=== PATIENT | female | born 1970 | race Caucasian/White ===

== ENCOUNTER 2016-07-01 08:14 | Observation (INO) | payer OTHER ==
[2016-06-24 14:01] VITALS: BMI 42.0
--- NOTE | 2016-06-24 14:49 | PAT Medication Instructions ---
Service Date Jun 24, 2016. Current Home Medication List Cyanocobalamin (Cyanocobalamin), 1,000 MCG IM MONTHLY Ibuprofen (Advil), 400-600 MG PO PRN Valacyclovir (Valtrex), 500 MG PO QAM Medication Instructions For Your Scheduled Surgery - Check with surgeon for instructions: Ibuprofen (Advil), 400-600 MG PO PRN - Continue as usual: Cyanocobalamin (Cyanocobalamin), 1,000 MCG IM MONTHLY - Take the following medications the morning of surgery with a sip of water: Valacyclovir (Valtrex), 500 MG PO QAM If you have any questions please call us at [phone] (Danielle Cheung PA-C ) or [phone] or [phone]
[2016-06-24 16:03] LABS: BASO % 0.3 %; BASO ABS # 0.02 K/uL (0-0.2); COMPLETE YES; EOS % 4.5 %; HEMATOCRIT 39.3 % (37-47); IG% 0.3 %; LYMPH % 24.8 %; LYMPH ABS # 1.42 K/uL (1.2-3.4); MEAN CELL VOLUME 87.5 fL (80-100); MEAN CORPUSCULAR HEMOGLOBIN 27.6 pg (25-34); MEAN CORPUSCULAR HGB CONC 31.6 g/dl (32-36); MEAN PLATELET VOLUME 9.6 fL (7.4-10.4); MONO % 6.5 %; NEUT % 63.6 %; PLATELET COUNT 337 K/uL (130-400); RED BLOOD COUNT 4.49 M/uL (4.2-5.4); WHITE BLOOD COUNT 5.73 K/uL (4.8-10.8)
[2016-06-24 16:26] LABS: CALCIUM 8.8 mg/dl (8.5-10.1); CREATININE 0.65 mg/dl (0.60-1.20); POTASSIUM 4.1 mmol/L (3.5-5.1)
--- NOTE | 2016-06-25 13:51 | HISTORY & PHYSICAL EXAMINATION ---
DATE OF ADMISSION: 07/01/2016 ADMITTING DIAGNOSES: 1. Dysfunctional uterine bleeding. 2. Failed endometrial ablation. ADMISSION HISTORY: The patient is a 45-year-old 1, para 1 who was admitted for total laparoscopic hysterectomy and bilateral salpingectomy for dysfunctional uterine bleeding after failed endometrial ablation. The patient's problems date back to November of 2014 when she presented with a history of irregular menstrual cycles. The patient was noted to have some anemia and was being followed by hematology. The patient underwent an endometrial ablation and was amenorrheic for approximately 9 months. The patient presented in January of this year and stated that her menses had returned. The bleeding was heavy with the passages of clots. She was evaluated in the Emergency Room and given a progesterone taper and referred back to gynecology. Evaluation here in the office included pelvic ultrasound as well as an endometrial biopsy. Treatment options were discussed with the patient and she is admitted for the above listed procedure. PAST MEDICAL HISTORY: OBSTETRICAL: x1. GYNECOLOGIC: As above. MEDICAL: Peripheral neuropathy, lumbar radiculopathy, pernicious anemia, hidradenitis suppurativa, chronic sebaceous cyst formation. SURGICAL: Gastric bypass surgery, tubal ligation. ALLERGIES: KEFLEX. SOCIAL HISTORY: Positive for smoking. FAMILY HISTORY: The patient is adopted. REVIEW OF SYSTEMS: As per HPI. ADMISSION PHYSICAL EXAMINATION: GENERAL: Shows a pleasant obese female in no acute distress. VITAL SIGNS: Blood pressure 130/88, height of 5 feet 7 inches and weight of 270 pounds. HEENT EXAMINATION: Unremarkable. NECK: Supple. LUNGS: Clear. HEART: With a regular rhythm and rate. ABDOMEN: Obese with multiple healing sebaceous cysts, the largest just inferior to the umbilicus, approximately 2 cm away. PELVIC: Shows normal external genitalia. The vaginal vault is pink and rugated. Cervical os is multiparous and closed. Bimanual examination, uterus and adnexa are not palpable secondary to patient habitus. RECTAL: Confirmatory. EXTREMITIES: Exam shows no deep calf tenderness. NEUROLOGIC: Grossly intact. IMPRESSION: A 45-year-old G1, P1 with dysfunctional uterine bleeding, history of anemia, failed endometrial ablation. PLAN: Risks, benefits and alternatives to the surgery have been discussed. While the benefits will be cessation of her menstrual cycles, the risks are bleeding, infection, inadvertent injury to bowel or bladder or failure to be able to complete the procedure laparoscopically. The patient preoperatively was noted to have multiple sebaceous cysts on her abdominal wall. She is being treated as an outpatient with topical clindamycin ointment and a repeat evaluation of these abscesses will be made in the holding area before the surgery. Should the abscesses have resolved, then we will proceed with surgery. The permit has been signed and she wishes to proceed.
[2016-06-26 16:13] LABS: PREG INTERNAL NEGATIVE QC NEG CLEAR BACKGROUND; PREG INTERNAL POSITIVE QC POS CONTROL LINE
[~2016-07-01] VITALS: Ht 172.7 cm; Wt 126.1 kg
[2016-07-01] VITALS (7 sets, daily range): BP systolic 119–153; BP diastolic 73–99; PULSE 75–95; TEMP 36.5–37.1; O2SAT 94–97; Ht 172.7 cm; Wt 126.1 kg
[2016-07-01] MEDS: LACTATED RINGER'S 1000ML 1,000 ML IV SCH ×2 (08:05→09:05)
[~2016-07-01 08:14] MED LIST: CEFAZOLIN 3000 MG/65 ML D5W IV SCH; CYNI1000 IM; IBUP-1050 PO; LACTATED RINGER'S 1000ML 1,000 ML IV SCH; VALA500T60 PO
[2016-07-01] MEDS ORDERED: FENTANYL CITRATE INJ 50 MCG/1 ML 2 ML VIAL ONE ×2 (08:41→12:15)
[2016-07-01] MEDS ORDERED: MIDAZOLAM HCL 1 MG/ML 2ML VIAL ONE (08:41)
[2016-07-01] MEDS ORDERED: GLYCOPYRROLATE INJ 0.2 MG/ML VIAL ONE ×2 (08:43→12:09)
[2016-07-01] MEDS ORDERED: ONDANSETRON INJ 2 MG/ML 2 ML VIAL ONE (08:43)
[2016-07-01] MEDS ORDERED: LIDOCAINE HCL 2% 2 ML VIAL (20MG/ML) ONE (08:43)
[2016-07-01] MEDS ORDERED: DEXAMETHASONE SOD INJ 4 MG/ML VIAL ONE (08:43)
[2016-07-01] MEDS ORDERED: PROPOFOL IV EMULSION 10 MG/ML 20 ML VIAL IV ONE (08:43)
[2016-07-01] MEDS ORDERED: ROCURONIUM BROMIDE 10 MG/ML 5 ML VIAL ONE ×2 (08:43→11:32)
[2016-07-01] MEDS ORDERED: NEOSTIGMINE METHYLSULFATE 5 MG/5 ML SYR ONE (08:43)
[2016-07-01] MEDS ORDERED: PROMETHAZINE HCL INJ 6.25 MG in SODIUM CHLORIDE 0.9% 50ML 50 ML IV PRN (10:15)
[2016-07-01] MEDS ORDERED: ATROPINE SULFATE 0.1 MG/ML 5ML SYR IV PRN (10:15)
[2016-07-01] MEDS ORDERED: ONDANSETRON INJ 2 MG/ML 2 ML VIAL IV PRN ×2 (10:15→12:30)
[2016-07-01] MEDS ORDERED: EpHEDrine SULFATE INJ 50 MG/ML AMP IV PRN (10:15)
--- NOTE | 2016-07-01 10:17 | History & Physical Bridge Note ---
H&P Re-Evaluation Bridge Note: I have examined the patient, reviewed the History & Physical and in the interval since the performance of the History & Physical I have noted the following changes of clinical significance: Patient using topical Clindamycin with significant in size and induration. Believe can proceed with the surgery, discussed with patient. Pt allergy to po Keflex is nausea, will go ahead with IV Keflex.
[2016-07-01] MEDS ORDERED: LACTATED RINGER'S 1000ML 1,000 ML IV SCH (12:26)
[2016-07-01] MEDS ORDERED: OXYCODONE/ACETAMINOPHEN 5-325 TAB PO PRN ×2 (12:30)
[2016-07-01] MEDS ORDERED: MEPERIDINE HCL 75 MG/ML CARP IV PRN (12:30)
[2016-07-01] MEDS ORDERED: KETOROLAC TROMETHAMINE 30 MG/ML VIAL IV. PRN (12:30)
[2016-07-01] MEDS ORDERED: ACETAMINOPHEN 325 MG TAB PO PRN (12:30)
[2016-07-01] MEDS ORDERED: MEPERIDINE HCL 50 MG/ML CARP IV PRN (12:30)
[2016-07-01] MEDS ORDERED: IBUPROFEN 600 MG TAB PO PRN (12:30)
[2016-07-01] MEDS ORDERED: BUPIVACAINE 0.5 % 5 MG/1 ML MPF 30ML VIAL INJ ONE (12:37)
--- NOTE | 2016-07-01 12:38 | [facility] Post Operative Brief Note ---
Immediate Operative Summary Operative Date Jul 01, 2016. Pre-Operative Diagnosis 1) Dysfunctional uterine bleeding; 2) failed endometrial ablation Post-Operative Diagnosis Same as preop Procedure(s) Performed Robotic-assisted total laparoscopic hysterectomy, bilateral salpingectomy, cystoscopy Surgeon Dr. Abad Spinal Surgeon Surgeon(s) Dr. Kenney Estimated Blood Loss 50cc Findings Multiparous uterus, previous tubal ligation, normal appearing ovaries bilaterally,TLH with bilateral salpingectomy performed, post procedure cystoscopy showed bilateral ureteral jets consistent with ureteral patency Fluids (cc crystalloids) 1000 Specimens A: uterus, cervix, bilateral fallopian tubes Drains Reed to gravity Anesthesia General Complication(s) None Disposition Recovery Room / PACU
[2016-07-01] MEDS: FENTANYL CITRATE INJ 50 MCG/1 ML 2 ML VIAL IV PRN ×2 (12:46→12:53)
[2016-07-01] MEDS: HYDROmorphone INJ 1 MG/ML SYR IV PRN ×4 (13:05→13:32)
[2016-07-01] MEDS ORDERED: IV FLUIDS COMPLETED PRN (13:45)
--- NOTE | 2016-07-01 13:48 | Anesthesiology Progress Note ---
Anesthesia Post Op Note Date & Time Jul 01, 2016 at 13:48 Vital Signs Pain Intensity: 8 Vital Signs Past 12 Hours Date Time Temp Pulse Resp B/P Pulse Ox O2 Delivery O2 Flow Rate FiO2 07/01/16 13:35 78 13 145/81 98 Nasal Cannula 3 07/01/16 13:25 76 15 158/88 99 Nasal Cannula 3 07/01/16 13:15 72 15 169/97 99 Nasal Cannula 3 07/01/16 13:05 80 18 181/107 98 Nasal Cannula 3 07/01/16 12:55 88 20 182/96 100 Mask 10 07/01/16 12:45 92 24 165/97 100 Mask 10 07/01/16 12:38 36.5 98 16 159/108 100 Mask 10 07/01/16 09:00 36.8 92 20 153/99 96 Room Air Notes Mental Status: alert / awake / arousable, participated in evaluation Pt Amnestic to Procedure: Yes Nausea / Vomiting: adequately controlled Pain: adequately controlled Airway Patency, RR, SpO2: stable & adequate BP & HR: stable & adequate Hydration State: stable & adequate Anesthetic Complications: no major complications apparent
--- NOTE | 2016-07-01 14:14 | OPERATIVE REPORT ---
DATE OF OPERATION: 07/01/2016 PREOPERATIVE DIAGNOSES: 1. Dysfunctional uterine bleeding. 2. Failed endometrial ablation. POSTOPERATIVE DIAGNOSES: Same. PROCEDURES PERFORMED: 1. Total laparoscopic hysterectomy, da Peyton assisted. 2. Bilateral salpingectomy. SURGEON: Dr. Abad. HAZARDOUS SUBSTANCES SCIENTIST: Dr. Courtney Kenney. ANESTHESIA: General. FINDINGS: Laparoscopic examination of the pelvis showed normal appearing uterus and ovaries, fallopian tubes with evidence of previous bilateral tubal ligation. Total laparoscopic hysterectomy and bilateral salpingectomy performed. Post-procedure cystoscopy showed bilateral ureteral jets consistent with ureteral patency. PROCEDURE IN DETAIL: The patient was taken to the operating room and after general anesthesia, was prepped and draped in a dorsal lithotomy position for a laparoscopic hysterectomy. Reed catheter was inserted into the bladder, which remained there throughout the procedure. A single tooth tenaculum was used to grasp the anterior lip of the cervix. The cervical os was dilated with Henao dilators to a Henao #23 and then the VCare uterine manipulator was inserted into the uterine cavity and insufflated with air. The VCare was then stitched to the cervix at the 12 and 3 o'clock position and locked into place. Small subumbilical incision was made. Veress needle was introduced into the pelvic cavity, which was then insufflated with 3 liters of CO2. Veress needle was removed and then a supraumbilical sharp trocar was placed under direct laparoscopic guidance. Pelvic organs were visualized and then robotic laparoscopic ports were placed. Two 8-mm ports were placed on the right hand side, 1 laterally and 1 para medially. On the left hand side, there was an 8-mm port laterally with a 12-mm paramedial assistance port. The robot was brought to the table and docked. The following instruments were inserted; through arm #1, monopolar scissors; arm #2, Bipolar cautery instrument; and arm #2, the Prograf. Surgeon left the operating table to the operative console. The ureters were identified bilaterally. The left fallopian tube was cauterized along the mesosalpinx and excised and removed from the field. In a similar fashion, the right fallopian tube was cauterized along the mesosalpinx, freeing this and removing it from the field. The left round ligament was cauterized and cut, ligated, opening the anterior leaf of the broad ligament. The ovarian suspensory ligament was then cauterized and cut. Anterior leaf of the broad ligament was taken down over the level of the cervix. Using sharp dissection, the peritoneum was dissected away, exposing the vaginal mucosa being tented by the VCare uterine manipulator. The uterine vessels were skeletonized and then cauterized in 3 contiguous sutton with bipolar cautery instrument. Dissection was turned to the right hand side. Fallopian tube was isolated. After removal of the right round ligament, it was then cauterized, cut, opening the anterior leaf of the broad ligament, which was taken down to join the contralateral side. The right ovarian suspensory ligament was cauterized and cut exposing the uterine vessels after the bladder was felt to be adequately dissected down below the level of the VCare. The uterine vessels on the right hand side were cauterized in 3 contiguous sutton, cut. The cardinal and uterosacral ligaments were then clamped, cauterized and cut. Dissection turned back to the left. Uterine vessels were cut. Cardinal and uterosacral ligament was cauterized and cut, and the VCare could be seen tenting the vaginal mucosa. Posterior colpotomy incision was made with the monopolar scissors and carried in a circumferential fashion around the VCare the cervix from the vagina. The specimen was delivered into the vagina and a vaginal packing was placed to reestablish the pneumoperitoneum. Monopolar scissors and bipolar cautery instruments were removed through arm #1 where the boris needle winch driver and through arm #2, where the cobra grasp. A 2-0 Vicryl V-Loc suture was inserted and the vaginal cuff was then closed with a running locking stitch of the 2-0 Vicryl VCare. This was then doubled backed and cut and the needle was removed from the field. The vaginal packing was removed and the pneumoperitoneum was continued signifying closure of the vaginal cuff. The pedicles were irrigated with warm saline and aspirated. All pedicles were inspected for hemostasis, which was present. At this point, the Reed catheter was removed. The patient had received methylene blue from the anesthesia unit. Cystoscopy of the bladder was performed by Dr. Courtney Kenney. Both ureteral orifices were visualized with ureteral jets seen consistent with ureteral patency. The cystoscope was removed and a new Reed catheter was placed. The robot was undocked and removed from the field. The CO2 was allowed to escape the pelvic cavity and the trocars were removed. Deep sutures through the 12-mm ports were placed, reapproximating the fascia with 0 Vicryl suture. The skin incisions were closed with 4-0 Monocryl subcuticular stitches. Steri-Strips were applied. The patient was taken out of dorsal lithotomy and to recovery room in satisfactory condition. I attest to the content of the Intraoperative Record and any orders documented therein. Any exceptio ns are noted below.
[2016-07-01] MEDS ORDERED: MTR600X PO (18:14)
[2016-07-01] MEDS ORDERED: OXYC-57 PO (18:14)
--- NOTE | 2016-07-01 18:16 | Discharge Instructions ---
Discharge Instructions Admission Reason for Admission: Dysfunctional Uterine Bleeding Discharge Discharge Diagnosis / Problem: same Discharge Goals Goal(s): Routine recovery after surgery Activity Recommendations Activity Limitations: as noted below . Instructions / Follow-Up Instructions / Follow-Up POST OPERATIVE: BOWEL FUNCTION/MEDICATIONS: 1. Constipation pain and discomfort are the most common complaints 5-7 days after surgery. Points 2-6 address the things that can help. 2. Chewing gum can help stimulate the gut and help improve digestion and motility. 3. Milk of Magnesia 1-2 times per day until return of bowel function. 4. Colace is a stool softener that helps. Taking this 2-3 times per day until bowel function returns to normal is highly recommended. 5. Dulcolax is a laxative that may be used if several days have passed without a bowel movement. Alternatively Miralax may be used daily instead. 6. Drink plenty of fluids as this will also reduce constipation. 7. Narcotic pain medications will be prescribed by your physician. They are safe to use and we encourage you to use them. If you are not allergic, ibuprofen will also be prescribed. Many patients will be able to transition off of the narcotic medications to ibuprofen by postoperative day 3. ACTIVITY RECOMMENDATIONS: 1. Get plenty of rest and listen to your body. If you are tired, take a nap. 2. You may shower, but do not take a tub bath until you see your doctor at the 2 week post operative visit. 3. Absolutely NO intercourse and nothing in the vagina until you are examined by your doctor at the 6 week visit. At that visit it will be determined when such activities can be resumed. This can range from 6-12 weeks after your surgery depending on healing time. 4. The main physical activity in the first week should be walking. By the second week you can slowly increase activity. There are no limits on walking up and down stairs. 5. Do not lift more than 5-10 lbs for 4 weeks. Remember the "one-handed rule", i.e. if you can lift something with only one hand it's likely okay. 6. Minimize power shear operator like vacuuming and exercising for 4 weeks. "Overdoing it" can lead to incisions not healing, pain and vaginal bleeding , so again, listen to your body. 7. Driving can be resumed when you feel able. Do not drive within 24 hours of taking a narcotic medication. EXPECTATIONS: 1. Vaginal spotting, bleeding and discharge are common after surgery. There may even be an odor to the discharge which is often related to sutures used in the vagina. If you experience heavy vaginal bleeding, call the office number day or night [phone]. 2. Bladder discomfort is common after surgery from the catheter. This usually resolves in 1-2 weeks. 3. By the end of the 3rd or 4th week you should be feeling much better. It may take up to 6 weeks for your energy levels to return to normal. 4. Narcotic medications have side effects such as: dizziness, headache, nausea and/or vomiting. If you suspect your pain medication is causing problems, call our office and we may be able to prescribe an alternate medication. 5. The skin incisions are often covered with a liquid bandage. This will gradually peel off over time. CALL THE OFFICE IF YOU HAVE ANY OF THE FOLLOWIN. Temperature of 101 degrees or higher. 2. Severe abdominal or pelvic pain not relieved by pain medication. 3. Persistent nausea or vomiting. 4. Increased pain with urination or difficulty urinating. 5. Bright red bleeding that soaks more than 1 pad per hour. CONTACT PHONE NUMBERS: Main Office: [phone] Surgical Nurse: [phone] extension [phone] FOLLOW-UP: Post-Operative Appointments: * Individual instructions will have been given about the timing of your first examination, but this is usually at the end of the second week home. * You will need to call the office at soon after discharge to make the appointment for your post-op check-up if it has not already been scheduled. * Additional information regarding activity, sexual intercourse and when to return to work will be given at this appointment. WE WISH YOU A SPEEDY RECOVERY! Current Hospital Diet Patient's current hospital diet: Regular Diet Discharge Diet Recommended Diet: Regular Diet Procedures Procedures Performed: Robotic-assisted total laparoscopic hysterectomy, bilateral salpingectomy, cystoscopy Pending Studies Studies pending at discharge: yes List of pending studies: Pathology report for hysterectomy Medical Emergencies . Who to Call and When: Medical Emergencies: If at any time you feel your situation is an emergency, please call 911 immediately. . Non-Emergent Contact Non-Emergency issues call your: Card Puncher Call Non-Emergent contact if: temperature is above 100.5, your pain is not controlled, wound has increased drainage, wound has increased redness, wound has increased pain . . "Provider Documentation" section prepared by Massimo Abad. VTE Core Measure Inpt VTE Proph given/why not?: Nazario Treadwell, SCD's
--- NOTE | 2016-07-01 18:19 | OB/GYN Progress Note ---
MUSIC PASTOR Progress Note Date of Service Jul 01, 2016. Subjective conversation w/ patient, physical exam Ambulation: ambulating normally Voiding: no voiding problems Diet Tolerance: Regular Diet Objective Vital Signs Date Time Temp Pulse Resp B/P Pulse Ox O2 Delivery O2 Flow Rate FiO2 07/01/16 15:10 95 18 147/93 96 Room Air 07/01/16 14:40 90 20 140/87 96 Room Air 07/01/16 14:00 69 14 138/80 98 Nasal Cannula 2 07/01/16 13:45 36.7 75 15 150/91 99 Nasal Cannula 2 07/01/16 13:35 78 13 145/81 98 Nasal Cannula 3 07/01/16 13:25 76 15 158/88 99 Nasal Cannula 3 07/01/16 13:15 72 15 169/97 99 Nasal Cannula 3 07/01/16 13:05 80 18 181/107 98 Nasal Cannula 3 07/01/16 12:55 88 20 182/96 100 Mask 10 07/01/16 12:45 92 24 165/97 100 Mask 10 07/01/16 12:38 36.5 98 16 159/108 100 Mask 10 07/01/16 09:00 36.8 92 20 153/99 96 Room Air Physical Exam General Appearance: WELL-APPEARING, NO APPARENT DISTRESS Incision Description: Clean, Dry & Intact Extremities: no calf tenderness Assessment and Plan Post-Op (1) Menorrhagia Status: Acute Assessment & Plan: - discussed surgery and findings with patient - pt ambulating, taking po well and voiding - d/c instructions given - f/u in 2 weeks for post-op check (2) Abnormal vaginal bleeding Status: Acute
--- NOTE | 2016-07-02 01:59 | DISCHARGE SUMMARY ---
ADMITTING DIAGNOSES: 1. Dysfunctional uterine bleeding. 2. Failed endometrial ablation. DISCHARGE DIAGNOSES: Same. PROCEDURES PERFORMED: 1. Total laparoscopic hysterectomy, da Peyton assisted. 2. Bilateral salpingectomy. DISCHARGE MEDICATIONS: 1. Percocet 5/325 one to two p.o. q. 4-6 hours p.r.n. pain. 2. Motrin 600 mg p.o. q. 6 hours p.r.n. pain. ADMISSION HISTORY: The patient is a 45-year-old 1, para 1 admitted for total laparoscopic hysterectomy and bilateral salpingectomy for dysfunctional uterine bleeding and for failed endometrial ablation. The patient's problems date back to November 2014 when she presented with a history of an irregular menstrual cycle. The patient was noted to have some anemia and was being followed by hematology. The patient underwent an endometrial ablation and was amenorrheic for approximately 9 months. The patient presented in January 2016 and stated that her menses had returned. The bleeding was heavy with the passage of clots. She was evaluated in the Emergency Room and given a progesterone taper and referred back to gynecology. Evaluation in the office included pelvic ultrasound as well as endometrial biopsy. Treatment options were discussed with the patient. She is admitted for the above listed procedures. ADMISSION PHYSICAL EXAMINATION: GENERAL: Showed a pleasant obese female in no acute distress. VITAL SIGNS: Blood pressure 130/88, height of 5 feet 7 inches, weight of 277 pounds. HEENT: Unremarkable. NECK: Supple. LUNGS: Clear. HEART: With a regular rhythm and rate. ABDOMEN: Obese with multiple healing sebaceous cysts. PELVIC: Normal external genitalia. Vaginal wall pink and rugated. Cervical os multiparous and closed. Bimanual examination, uterus and adnexa are not palpable secondary to patient habitus. RECTAL: Confirmatory. EXTREMITIES: Showed no deep calf tenderness. NEUROLOGIC: Grossly intact. ADMISSION LABORATORY VALUES: Showed an H\T\H of 12.4 and 39.3. HOSPITAL COURSE: On the day of admission, patient was taken to the operating room where she underwent the total laparoscopic hysterectomy with bilateral salpingectomy. Operative findings showed a large multiparous uterus with normal appearing tubes and ovaries bilaterally, evidence of previous tubal ligation noted. Total laparoscopic hysterectomy with bilateral salpingectomy performed. Postoperatively, the patient did well. The patient was able to ambulate without difficulty, tolerated a regular diet as well as p.o. medication and voided. She was discharged home with the routine discharge instructions and prescriptions for the medications as listed above. She will follow up in the office in 2 weeks' time for a postoperative check but as always, she has been instructed to call with any questions, problems or difficulties.
== END 2016-07-01 20:15 | disposition home or self-care (01) ==
LOC: ENRESERVDT → ENRESERVTM → C.ACU 08:14 → C.MS4N 12:30
PROVIDERS: ADMIT Obstetrics & Gynecology; ATTEND Obstetrics & Gynecology
DX: N92.0 Excessive and frequent menstruation with regular cycle (principal); E66.9 Obesity, unspecified; G62.9 Polyneuropathy, unspecified; F17.200 Nicotine dependence, unspecified, uncomplicated; Z88.1 Allergy status to other antibiotic agents; Z98.84 Bariatric surgery status
CPT/HCPCS: 58571; S2900

== ENCOUNTER 2016-08-24 23:50 | Emergency (ER) | payer OTHER ==
[~2016-08-24] VITALS: Ht 172.7 cm; Wt 121.3 kg
[~2016-08-24 23:50] MED LIST changes: -CEFAZOLIN 3000 MG/65 ML D5W IV SCH; -IBUP-1050 PO; -LACTATED RINGER'S 1000ML 1,000 ML IV SCH; +MTR600X PO; +OXYC-57 PO
[2016-08-24 23:52] VITALS: BP 157/94; PULSE 114; TEMP 36.4; O2SAT 95; Ht 172.7 cm; Wt 121.3 kg
[2016-08-25] MEDS ORDERED: AMOXICILLIN 250 MG CAP PO STA (00:08)
[2016-08-25] MEDS ORDERED: OXYC1TAB3 PO (00:11)
[2016-08-25] MEDS ORDERED: AMOX500C3 PO (00:11)
[2016-08-25] MEDS ORDERED: OXYCODONE IR HOME PACK PO ONE (00:15)
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
== END 2016-08-25 00:23 | disposition home or self-care (01) ==
LOC: C.EDB 23:51
DX: K02.9 Dental caries, unspecified (principal); J45.909 Unspecified asthma, uncomplicated; F17.200 Nicotine dependence, unspecified, uncomplicated; Z91.81 History of falling; Z98.51 Tubal ligation status; Z90.710 Acquired absence of both cervix and uterus; Z98.890 Other specified postprocedural states

== ENCOUNTER → 2017-02-06 | Outpatient (CLI) | payer OTHER ==
[~2017-02-06] MED LIST changes: +OXYC1TAB3 PO
--- NOTE | 2017-02-06 15:58 | DIAGNOSTIC IMAGING REPORT ---
C-SPINE ROUTINE 4 OR 5 VIEWS CLINICAL HISTORY: Neck pain and. COMPARISON STUDY: No previous studies for comparison. FINDINGS: There is straightening of the normal cervical lordosis. No fracture or suspicious lesion is present. There is moderate osteophytosis with mild disc space narrowing at C5-C6. There is mild multilevel facet arthrosis. IMPRESSION: 1. Moderate degenerative disc disease at C5-C6. 2. No cervical spine fracture or subluxation. Electronically signed by: Bobby Mata M.D. 02/06/2017 3:57 PM Dictated Date/Time: 02/06/2017 3:56 PM
== END | disposition home or self-care (01) ==
LOC: C.RADPV 15:18
PROVIDERS: ATTEND Nurse Practitioner Family
DX: M54.2 Cervicalgia (principal)

== ENCOUNTER → 2017-02-08 | Outpatient (CLI) | payer OTHER ==
[2017-02-08 12:59] LABS: BASO % 0.3 %; BASO ABS # 0.02 K/uL (0-0.2); COMPLETE YES; EOS % 3.8 %; IG% 0.5 %; LYMPH % 23.1 %; LYMPH ABS # 1.51 K/uL (1.2-3.4); MEAN CELL VOLUME 84.2 fL (80-100); MEAN CORPUSCULAR HEMOGLOBIN 26.1 pg (25-34); MEAN PLATELET VOLUME 9.6 fL (7.4-10.4); MONO % 10.2 %; NEUT % 62.1 %; PLATELET COUNT 350 K/uL (130-400); RED BLOOD COUNT 4.63 M/uL (4.2-5.4); WHITE BLOOD COUNT 6.54 K/uL (4.8-10.8)
[2017-02-08 13:27] LABS: ALT/SGPT 17 U/L (12-78); BLOOD UREA NITROGEN 6 mg/dl (7-18); BUN/CREATININE RATIO 7.1 (10-20); CALCIUM 8.6 mg/dl (8.5-10.1); CARBON DIOXIDE 26 mmol/L (21-32); CHLORIDE 109 mmol/L (98-107); CHOLESTEROL 196 mg/dl (0-200); CREATININE 0.77 mg/dl (0.60-1.20); GLUCOSE 86 mg/dl (70-99); POTASSIUM 3.4 mmol/L (3.5-5.1); SODIUM 141 mmol/L (136-145); TRIGLYCERIDES 131 mg/dl (0-150); VERY LOW DENSITY LIPOPROT CALC 26 mg/dl
[2017-02-08 13:38] LABS: ALKALINE PHOSPHATASE 108 U/L (45-117); AST/SGOT 13 U/L (15-37); CHOLESTEROL/HDL RATIO 4.9; HDL CHOLESTEROL 40 mg/dl; LDL CHOLESTEROL CALCULATED 130 mg/dl
== END | disposition home or self-care (01) ==
LOC: C.LABPVFM 11:01
PROVIDERS: ATTEND Nurse Practitioner Family
DX: Z00.00 Encounter for general adult medical examination without abnormal findings (principal); D51.0 Vitamin B12 deficiency anemia due to intrinsic factor deficiency; D64.9 Anemia, unspecified; E66.9 Obesity, unspecified

== ENCOUNTER 2017-04-09 18:40 | Emergency (ER) | payer OTHER ==
[~2017-04-09] VITALS: Ht 172.7 cm; Wt 116.3 kg
[~2017-04-09 18:40] MED LIST changes: -CYNI1000 IM; -OXYC1TAB3 PO
[2017-04-09 18:41] VITALS: TEMP 37.3; Ht 172.7 cm; Wt 116.3 kg
[2017-04-09] MEDS ORDERED: LIDOCAINE/EPINEPHRINE 1% 20 ML VIAL ONE (18:55)
[2017-04-09] MEDS ORDERED: ACET1TAB84 PO (18:56)
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
[2017-04-09] MEDS ORDERED: SULF800T23 PO (19:37)
[2017-04-09] MEDS ORDERED: NORCO 5/325MG HOME PACK PO ONE (19:45)
[2017-04-09 19:57] VITALS: BP 168/89; PULSE 82; O2SAT 98
[2017-04-09] MEDS ORDERED: CYNI1000 IM (21:28)
== END 2017-04-09 19:58 | disposition home or self-care (01) ==
LOC: C.EDB 18:42 → C.EDA 19:58
DX: L02.211 Cutaneous abscess of abdominal wall (principal); F17.200 Nicotine dependence, unspecified, uncomplicated; B00.9 Herpesviral infection, unspecified

== ENCOUNTER 2017-07-25 09:31 | Emergency (ER) | payer OTHER ==
[~2017-07-25] VITALS: Ht 172.7 cm; Wt 108.1 kg
[~2017-07-25 09:31] MED LIST changes: +ACET1TAB84 PO; +CYNI1000 IM; -MTR600X PO; -OXYC-57 PO
[2017-07-25 09:36] VITALS: TEMP 36.6; Ht 172.7 cm; Wt 108.1 kg
[2017-07-25] MEDS ORDERED: LIDOCAINE/EPINEPHRINE 1% 20 ML VIAL INFIL ONE (10:45)
[2017-07-25] MEDS ORDERED: HYDROmorphone INJ 1 MG/ML SYR IM ONE (10:45)
[2017-07-25] MEDS ORDERED: IBUP-1451 PO (12:23)
[2017-07-25] MEDS ORDERED: CLIN150C PO (12:24)
[2017-07-25 12:37] VITALS: BP 157/105; PULSE 85; O2SAT 99
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
== END 2017-07-25 12:43 | disposition home or self-care (01) ==
LOC: C.EDB 09:34 → C.EDC 12:43
DX: L02.31 Cutaneous abscess of buttock (principal); L73.2 Hidradenitis suppurativa; Z87.898 Personal history of other specified conditions; F32.9 Major depressive disorder, single episode, unspecified; F41.9 Anxiety disorder, unspecified; J45.909 Unspecified asthma, uncomplicated; Z79.899 Other long term (current) drug therapy; Z87.09 Personal history of other diseases of the respiratory system; Z87.828 Personal history of other (healed) physical injury and trauma; F17.200 Nicotine dependence, unspecified, uncomplicated

== ENCOUNTER 2017-08-09 18:58 | Emergency (ER) | payer OTHER ==
[~2017-08-09 18:58] MED LIST changes: -CYNI1000 IM; -VALA500T60 PO
[2017-08-09 19:03] VITALS: TEMP 37.1
[2017-08-09] MEDS ORDERED: LORAZEPAM 2 MG/ML 1 ML VIAL IV STA (19:24)
[2017-08-09] MEDS ORDERED: SODIUM CHLORIDE 0.9% 1000ML 1,000 ML IV STA (19:24)
[2017-08-09 20:24] LABS: BASO % 0.3 %; BASO ABS # 0.02 K/uL (0-0.2); EOS % 1.4 %; HEMATOCRIT 39.3 % (37-47); HEMOGLOBIN 12.1 g/dL (12.0-16.0); IG# 0.01 K/uL (0.00-0.02); LYMPH % 19.2 %; LYMPH ABS # 1.37 K/uL (1.2-3.4); MEAN CELL VOLUME 81.9 fL (80-100); MEAN CORPUSCULAR HEMOGLOBIN 25.2 pg (25-34); MEAN CORPUSCULAR HGB CONC 30.8 g/dl (32-36); MONO % 8.1 %; MONO ABS # 0.58 K/uL (0.11-0.59); NEUT % 70.9 %; NEUT ABS # 5.05 K/uL (1.4-6.5); PLATELET COUNT 349 K/uL (130-400); RED CELL DISTRIBUTION WIDTH CV 16.3 % (11.5-14.5); WHITE BLOOD COUNT 7.13 K/uL (4.8-10.8)
[2017-08-09 20:41] LABS: BLOOD UREA NITROGEN 8 mg/dl (7-18); CALCIUM 8.8 mg/dl (8.5-10.1); CARBON DIOXIDE 27 mmol/L (21-32); CREATININE 0.81 mg/dl (0.60-1.20); GLUCOSE 87 mg/dl (70-99); POTASSIUM 4.1 mmol/L (3.5-5.1); SODIUM 140 mmol/L (136-145)
[2017-08-09] MEDS ORDERED: CYNI1000 IM (21:28)
[2017-08-09 23:00] VITALS: BP 139/74; PULSE 82; O2SAT 100
--- NOTE | 2017-08-09 23:12 | DIAGNOSTIC IMAGING REPORT ---
CHEST 2 VIEWS ROUTINE CLINICAL HISTORY: sob eval for pneumonia SHORTNESS OF BREATH. ANXIETY. COMPARISON STUDY: 08/26/2014 FINDINGS: The cardiac and mediastinal contours are normal. There is no evidence of focal pulmonary consolidation. There is no evidence of failure. No pleural effusions are visualized.[ There is stable blunting of the left lateral costophrenic angle IMPRESSION: No active disease in the chest. Electronically signed by: Christopher Goldstein M.D. 08/09/2017 11:11 PM Dictated Date/Time: 08/09/2017 10:01 PM
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
== END 2017-08-09 23:24 | disposition home or self-care (01) ==
LOC: C.EDB 18:59
DX: R07.9 Chest pain, unspecified (principal); F41.9 Anxiety disorder, unspecified; F45.8 Other somatoform disorders; J45.909 Unspecified asthma, uncomplicated; E78.2 Mixed hyperlipidemia

== ENCOUNTER → 2017-08-13 | Outpatient (CLI) | payer OTHER ==
[~2017-08-13] MED LIST changes: +CYNI1000 IM
== END | disposition home or self-care (01) ==
LOC: C.LAB1850 16:07
PROVIDERS: ATTEND Nurse Practitioner Family
DX: E55.9 Vitamin D deficiency, unspecified (principal)

== ENCOUNTER → 2017-09-19 | Outpatient (CLI) | payer OTHER ==
[~2017-09-19] MED LIST changes: +CALC-342 PO; +POTA1CAP2 PO
--- NOTE | 2017-09-19 16:15 | DIAGNOSTIC IMAGING REPORT ---
L SHOULDER MIN 2 VIEWS ROUTINE CLINICAL HISTORY: Left shoulder strain COMPARISON: None. DISCUSSION: No acute fractures are visualized. There is minimal inferior displacement humerus with respect to the glenoid. This could indicate ligamentous laxity, or an effusion.. IMPRESSION: 1. No acute fractures 2. Mild inferior displacement of the humerus with respect to the glenoid. This could indicate ligamentous laxity, or a joint effusion. Electronically signed by: Christopher Goldstein M.D. 09/19/2017 4:14 PM Dictated Date/Time: 09/19/2017 4:11 PM
== END | disposition home or self-care (01) ==
LOC: C.LABPVFM 15:51
PROVIDERS: ATTEND Family Medicine
DX: S46.912A Strain of unspecified muscle, fascia and tendon at shoulder and upper arm level, left arm, initial encounter (principal); X58.XXXA Exposure to other specified factors, initial encounter

== ENCOUNTER 2017-09-22 14:39 | Emergency (ER) | payer OTHER ==
[~2017-09-22] VITALS: Ht 172.7 cm; Wt 103.8 kg
[2017-09-22 14:53] VITALS: TEMP 36.5; Ht 172.7 cm; Wt 103.8 kg
[2017-09-22 15:14] LABS: BASO % 0.3 %; BASO ABS # 0.02 K/uL (0-0.2); EOS % 2.2 %; EOS ABS # 0.15 K/uL (0-0.5); HEMATOCRIT 39.8 % (37-47); HEMOGLOBIN 12.1 g/dL (12.0-16.0); IG# 0.02 K/uL (0.00-0.02); LYMPH % 29.4 %; MEAN CELL VOLUME 81.4 fL (80-100); MEAN CORPUSCULAR HEMOGLOBIN 24.7 pg (25-34); MEAN CORPUSCULAR HGB CONC 30.4 g/dl (32-36); MEAN PLATELET VOLUME 9.5 fL (7.4-10.4); MONO % 5.9 %; NEUT % 61.9 %; NEUT ABS # 4.22 K/uL (1.4-6.5); PLATELET COUNT 411 K/uL (130-400); RED CELL DISTRIBUTION WIDTH CV 16.5 % (11.5-14.5); RED CELL DISTRIBUTION WIDTH SD 49.4 fL (36.4-46.3); WHITE BLOOD COUNT 6.81 K/uL (4.8-10.8)
[2017-09-22 15:31] LABS: ALBUMIN 3.9 gm/dl (3.4-5.0); CALCIUM 8.9 mg/dl (8.5-10.1); CREATININE 0.86 mg/dl (0.60-1.20); POTASSIUM 3.2 mmol/L (3.5-5.1)
[2017-09-22 15:33] LABS: TOTAL PROTEIN 6.8 gm/dl (6.4-8.2)
[2017-09-22] MEDS ORDERED: POTA1CAP2 PO (18:13)
[2017-09-22] MEDS ORDERED: CALC-342 PO (18:22)
[2017-09-22 18:33] VITALS: BP 129/88; PULSE 71; O2SAT 100
[2017-09-22] MEDS ORDERED: ACET1TAB84 PO (18:56)
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
[2017-09-22] MEDS ORDERED: CYNI1000 IM (21:28)
== END 2017-09-22 18:34 | disposition home or self-care (01) ==
LOC: C.EDB 14:41 → C.EDC 18:34
DX: R20.0 Anesthesia of skin (principal); E87.6 Hypokalemia; T38.0X5A Adverse effect of glucocorticoids and synthetic analogues, initial encounter; Z98.84 Bariatric surgery status; D64.9 Anemia, unspecified; F41.9 Anxiety disorder, unspecified; J45.909 Unspecified asthma, uncomplicated; F32.9 Major depressive disorder, single episode, unspecified; F43.10 Post-traumatic stress disorder, unspecified; Z87.440 Personal history of urinary (tract) infections; Z98.51 Tubal ligation status; F17.210 Nicotine dependence, cigarettes, uncomplicated; Z79.899 Other long term (current) drug therapy; Z88.1 Allergy status to other antibiotic agents; Z91.048 Other nonmedicinal substance allergy status

== ENCOUNTER 2017-09-27 17:09 | Emergency (ER) | payer OTHER ==
[~2017-09-27] VITALS: Ht 172.7 cm; Wt 104.2 kg
[2017-09-27 17:12] VITALS: BP 150/107; PULSE 137; TEMP 36.6; O2SAT 97; Ht 172.7 cm; Wt 104.2 kg
--- NOTE | 2017-09-27 18:52 | DIAGNOSTIC IMAGING REPORT ---
HEAD CT NONCONTRAST CT DOSE: 1091.55 mGy.cm HISTORY: Head injury. Neck pain. TECHNIQUE: Multiaxial CT images of the head were performed without the use of intravenous contrast. Automated exposure control was utilized for this study. A dose lowering technique was utilized adhering to the principles of ALARA. Comparison: Head CT 02/18/2016. Findings: The paranasal sinuses and mastoid air cells are clear. The calvarium and skull base are intact. The ventricles and sulci are within normal limits. There is no mass, hematoma, midline shift, or acute infarct. Impression: No acute intracranial abnormality. Electronically signed by: Yoni Ortiz M.D. 09/27/2017 6:51 PM Dictated Date/Time: 09/27/2017 6:48 PM
--- NOTE | 2017-09-27 18:55 | DIAGNOSTIC IMAGING REPORT ---
CERVICAL SPINE CT CT DOSE: HISTORY: CHI/neck pain TECHNIQUE: Multiaxial CT images of the cervical spine were performed and reformatted in the sagittal and coronal plane without the use of contrast. A dose lowering technique was utilized adhering to the principles of ALARA. COMPARISON: None. FINDINGS: No fractures. No subluxation. Prevertebral soft tissues and the C1-C2 interval are intact. No pneumothorax. Moderate to space narrowing at C5-C6 and C6-C7. Straightening of the cervical spine. IMPRESSION: No fractures within the cervical spine. Electronically signed by: Yoni Ortiz M.D. 09/27/2017 6:53 PM Dictated Date/Time: 09/27/2017 6:51 PM
--- NOTE | 2017-09-27 19:36 | DIAGNOSTIC IMAGING REPORT ---
LUMBAR SPINE 5 VIEWS HISTORY: Back pain COMPARISON: Lumbar spine 09/18/2013. FINDINGS: There is no fracture. No subluxation. Cholecystectomy. Suture material within the left upper quadrant. Disc spaces are preserved. IMPRESSION: No fracture or subluxation within the lumbar spine. Electronically signed by: Yoni Ortiz M.D. 09/27/2017 7:35 PM Dictated Date/Time: 09/27/2017 7:34 PM
--- NOTE | 2017-09-27 19:37 | DIAGNOSTIC IMAGING REPORT ---
THORACIC SPINE 3 VIEWS HISTORY: Back pain COMPARISON: None. FINDINGS: There is no fracture. No subluxation. Disc spaces are preserved. IMPRESSION: No fracture or subluxation within the thoracic spine. Electronically signed by: Yoni Ortiz M.D. 09/27/2017 7:36 PM Dictated Date/Time: 09/27/2017 7:35 PM
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
== END 2017-09-27 20:19 | disposition home or self-care (01) ==
LOC: C.EDB 17:10 → C.EDD 20:19
DX: S06.0X0A Concussion without loss of consciousness, initial encounter (principal); S16.1XXA Strain of muscle, fascia and tendon at neck level, initial encounter; M54.6 Pain in thoracic spine; Y04.8XXA Assault by other bodily force, initial encounter; W18.2XXA Fall in (into) shower or empty bathtub, initial encounter; R03.0 Elevated blood-pressure reading, without diagnosis of hypertension; J45.909 Unspecified asthma, uncomplicated; F17.200 Nicotine dependence, unspecified, uncomplicated; Z86.59 Personal history of other mental and behavioral disorders

== ENCOUNTER 2017-10-05 10:49 | Emergency (ER) | payer OTHER ==
[~2017-10-05] VITALS: Ht 172.7 cm; Wt 101.0 kg
[2017-10-05 10:52] VITALS: TEMP 36.7; Ht 172.7 cm; Wt 101.0 kg
[2017-10-05] MEDS ORDERED: KETOROLAC TROMETHAMINE 60 MG/2 ML VIAL IM STA (11:04)
--- NOTE | 2017-10-05 11:12 | EMERGENCY ROOM VISIT NOTE ---
ED Visit Note First contact with patient: 10:59 CHIEF COMPLAINT: Right ankle pain HISTORY OF PRESENT ILLNESS: This 46-year-old patient presents to the emergency department, ambulatory, approximately 12 hours after sustaining an injury to the right ankle and foot with a twisting, inversion motion when she tripped over a pillow at home. The patient complains of pain along the outside of the ankle. The patient denies pain of the foot. The patient rates the pain as throbbing and aching and 9/10. The patient is not able to bear weight on the foot. The patient states she crawled to sleep on the couch last night, and her male friend carried her to the car, then got a wheelchair to bring her into the emergency department today. Constant pain, worse with movement, weight bearing , and the dependent position. No knee pain, the patient is able to move their toes. No numbness or weakness of the foot, no laceration. The patient has had a previous fracture to this ankle and reports a similar sensation and popping noise. The patient has taken nothing for the pain. She did use ice, and attempted to wrap the ankle and an Lino bandage, but states this made it worse. The patient denies any other injury. REVIEW OF SYSTEMS: A 6 system review of systems was completed with positives and pertinent negatives listed in the HPI. ALLERGIES: Keflex, poison katja MEDICATIONS: Potassium, vitamin B12, acetaminophen, calcium PMH: Chronic pain, left shoulder pain SOCIAL HISTORY: The patient lives locally with family. She denies drug, alcohol , tobacco use. PHYSICAL EXAM: Vital Signs: Reviewed Nurse's notes, vital signs stable. GENERAL : This is a 46-year-old white female, no acute distress, but appears in pain, well-developed, well-nourished. MENTAL STATUS: Alert, oriented to person place and time, and cooperative. MUSCULOSKELETAL: The right ankle is swollen and tender over the lateral malleolus, but the skin is intact and there is no ligamentous instability. There is no fifth metatarsal tenderness. There is no tenderness over the rest of the foot. There is no calf or tibia/fibular tenderness. There is no visual deformity. The foot and toes are warm and well- perfused. Dorsalis pedis pulse 2+. Sensation to pain and light touch is intact. Capillary refill less than 2 seconds. RADIOLOGY: R ANKLE MIN 3 VIEWS ROUTINE CLINICAL HISTORY: lateral right ankle pain pain COMPARISON: None. DISCUSSION: The bones and joint spaces appear intact. There is no evidence of fracture, dislocation or bony disease. There is no evidence for soft tissue swelling. IMPRESSION: Negative study. The above report was generated using voice recognition software. It may contain grammatical, syntax or spelling errors. Electronically signed by: Srikanth Elliott M.D. 10/05/2017 11:30 AM Dictated Date/Time: 10/05/2017 11:29 AM EMERGENCY DEPARTMENT COURSE: I examined the patient. She was given 60 mg Toradol IM. X-rays of the right ankle were reviewed by myself and read by radiology and reveal no acute fracture or soft tissue swelling. A gel ankle splint was applied to the ankle under my direction and the position was satisfactory. Neurovascular status was rechecked and intact. The patient does have crutches at home. She was encouraged to use one crutch to help with ambulation at home due to the shoulder injury. She was encouraged to follow-up outpatient with her orthopedic surgeon this week for further evaluation and management. Discharge instructions reviewed. The patient was discharged home in good condition. I attest that I have personally reviewed the patient's current medication list. Patient was found to have normal blood pressure on screening and does not require follow-up. Etiologies such as soft tissue injury, fracture, dislocation, neurovascular compromise, compartment syndrome, as well as others were entertained. DIAGNOSIS: Right ankle sprain The chart was completed utilizing [employer] voice recognition software. Grammatical errors, random word insertions, pronoun errors, and incomplete sentences are an occasional consequence of this system due to software limitations, ambient noise, and hardware issues. Any formal questions or concerns about the content, text, or information contained within the body of this dictation should be directly addressed to the provider for clarification. Problem List Medical Problems: (1) Acute bronchitis Status: Resolved (2) Anemia Status: Chronic (3) Anemia Status: Resolved (4) Anxiety State Nos Status: Chronic (5) Asthma, Unspecified Status: Chronic (6) Avoidant Personality Disorder Status: Chronic (7) Back pain Status: Resolved (8) Back pain Status: Resolved (9) Bite by animal Status: Resolved (10) Bronchitis Status: Resolved (11) Bronchitis Status: Resolved (12) Bronchitis Status: Resolved (13) Cellulitis Status: Resolved (14) Chemical burn Status: Resolved (15) Contusion of multiple sites Status: Resolved (16) Dental caries Status: Resolved (17) Depression Status: Chronic (18) Depression Status: Chronic (19) External hemorrhoid, bleeding Status: Resolved (20) External hemorrhoids Status: Chronic (21) External hemorrhoids Status: Resolved (22) External hemorrhoids Status: Chronic (23) Facial injury Status: Resolved (24) Fall Status: Resolved (25) Fall Status: Resolved (26) Fibroid, uterine Status: Resolved (27) Foot pain, left Status: Resolved (28) H/O borderline personality disorder Status: Chronic (29) Head injury Status: Resolved (30) Hemorrhagic cyst of ovary Status: Resolved (31) Hemorrhoids Status: Resolved (32) Hemorrhoids Status: Resolved (33) Herpes Status: Resolved (34) Herpes Status: Resolved (35) Herpes Status: Resolved (36) Herpes genitalis Status: Resolved (37) Herpes genitalis Status: Resolved (38) Herpes genitalis Status: Chronic (39) Herpes genitalis Status: Resolved (40) Herpes genitalis in women Status: Chronic (41) Herpes genitalis in women Status: Resolved (42) Hydradenitis Status: Chronic (43) Injury of left shoulder Status: Resolved (44) Left buttock abscess Status: Resolved (45) Leg pain, left Status: Resolved (46) Migraine Unspecified W/O Intractable Migraine Status: Chronic (47) Mixed Hyperlipidemia Status: Chronic (48) Myalgia Status: Resolved (49) Pain, dental Status: Resolved (50) PTSD (post-traumatic stress disorder) Status: Chronic (51) Rabies, need for prophylactic vaccination against Status: Resolved (52) Rabies, need for prophylactic vaccination against Status: Resolved (53) Rabies, need for prophylactic vaccination against Status: Resolved (54) Rabies, need for prophylactic vaccination against Status: Resolved (55) Rectal pain Status: Resolved (56) Right ankle sprain Status: Resolved (57) Right ankle sprain Status: Resolved (58) Right ankle sprain Status: Resolved (59) rule out bipolar disorder Status: Resolved (60) Swelling of extremity Status: Resolved (61) UTI (urinary tract infection) Status: Resolved (62) Vaginal irritation Status: Resolved (63) Vaginal pain Status: Resolved (64) Vaginal pain Status: Resolved (65) Vaginal pain Status: Resolved (66) Yeast dermatitis Status: Resolved Surgical Problems: (1) Abscess of right thigh Status: Resolved (2) Intestinal Bypass Status Status: Chronic (3) Multiple abrasions Status: Resolved (4) Toe fracture, right Status: Resolved (5) Toe fracture, right Status: Resolved (6) Tubal ligation status Status: Resolved Current/Historical Medications Scheduled Calcium Carbonate-Vitamin D (Calcium 600+D), 1 TAB PO BID Cyanocobalamin (Cyanocobalamin), 1,000 MCG IM MONTHLY Potassium Chloride (Potassium Chloride Er), 2 CAP PO DAILY Scheduled PRN Acetaminophen (Tylenol Arthritis Ext Rel), 1,300 MG PO Q8H PRN for Pain Allergies Coded Allergies: Poison Katja Extract/Poison [place] Extra (Verified Allergy, Unknown, RASH BLISTERS, 10/05/17) Cephalexin (Verified Adverse Reaction, Severe, NAUSEA AND VOMITING, ) Vital Signs Date Time Temp Pulse Resp B/P (MAP) Pulse Ox O2 Delivery O2 Flow Rate FiO2 10/05/17 12:30 91 18 134/91 99 10/05/17 10:52 36.7 101 16 140/83 97 Room Air Medications Administered Medications (Trade) Dose Ordered Sig/Brenda Route Start Time Stop Time Status Last Admin Dose Admin Ketorolac Tromethamine (Toradol Inj) 60 mg NOW STAT IM 10/05/17 11:04 10/05/17 11:08 DC 10/05/17 11:12 60 MG Departure Information Impression Primary Impression: Right ankle sprain Dispostion Home / Self-Care Condition GOOD Referrals No Doctor, Assigned (PCP) Marino Garduno D.O. Patient Instructions ED Sprain Ankle, My [facility] Additional Instructions You have been treated in the Emergency Department for an Ankle sprain. X-ray did not reveal any acute fracture or soft tissue swelling. For pain control, you can use the following [id number] medicines (if >12 yo): Ibuprofen(Motrin, Advil) may be used for fever or pain. Use 600mg every six hours as needed. Take with food. Avoid using more than 2400mg in a 24 hour period. Do not use 2400mg per day for more than three consecutive days without physician direction. Prolonged inappropriate use can lead to stomach upset or ulcers. (AND/OR) Acetaminophen(Tylenol) may be used for fever or pain. Use 1000mg every six hours as needed. Avoid using more than 3000mg in a 24 hour period. If this is a recent injury (<24 hrs), ice can be applied to the area of pain for the first 3 days to help decrease pain and inflammation. You have been provided the number for an Orthopaedic Surgeon. You should call this number if no improvement within 1 week to establish a follow-up visit from today's Emergency Department visit. Keep the ankle brace/splint in place until her symptoms improve. Use the crutches you have at home been provided to help with weightbearing until weight bearing is tolerable. As discussed, you should use one crutch under the right arm, due to your left shoulder injury. Return to the Emergency Department if your current symptoms worsen despite treatment course outlined above, or if you develop any of the following symptoms : intractable pain despite aforementioned treatment course or new onset of numbness or tingling of the foot. Problem Qualifiers Primary Impression: Right ankle sprain Encounter type: initial encounter Involved ligament of ankle: unspecified ligament Qualified Codes: S93.401A - Sprain of unspecified ligament of right ankle, initial encounter
--- NOTE | 2017-10-05 11:31 | DIAGNOSTIC IMAGING REPORT ---
R ANKLE MIN 3 VIEWS ROUTINE CLINICAL HISTORY: lateral right ankle pain pain COMPARISON: None. DISCUSSION: The bones and joint spaces appear intact. There is no evidence of fracture, dislocation or bony disease. There is no evidence for soft tissue swelling. IMPRESSION: Negative study. The above report was generated using voice recognition software. It may contain grammatical, syntax or spelling errors. Electronically signed by: Srikanth Elliott M.D. 10/05/2017 11:30 AM Dictated Date/Time: 10/05/2017 11:29 AM
[2017-10-05 12:30] VITALS: BP 134/91; PULSE 91; O2SAT 99
== END 2017-10-05 12:32 | disposition home or self-care (01) ==
LOC: C.EDB 10:51 → C.EDD 12:32
DX: S93.401A Sprain of unspecified ligament of right ankle, initial encounter (principal); X50.1XXA Overexertion from prolonged static or awkward postures, initial encounter; W22.8XXA Striking against or struck by other objects, initial encounter; Y92.009 Unspecified place in unspecified non-institutional (private) residence as the place of occurrence of the external cause; M25.512 Pain in left shoulder; G89.29 Other chronic pain; J45.909 Unspecified asthma, uncomplicated; E78.2 Mixed hyperlipidemia; Z91.048 Other nonmedicinal substance allergy status; Z88.1 Allergy status to other antibiotic agents

== ENCOUNTER 2020-03-15 16:32 | Inpatient (IN) ==
[2020-03-15] MEDS ORDERED: METOPROLOL TARTRATE 1 MG/ML VIAL IV STA (16:56)
[2020-03-15] MEDS ORDERED: SODIUM CHLORIDE 0.9% 1000ML 1,000 ML IV SCH (17:00)
[2020-03-15] MEDS ORDERED: ONDANSETRON INJ 2 MG/ML 2 ML VIAL IV STA (17:05)
--- NOTE | 2020-03-15 17:05 | Emergency Department Note ---
History of Present Illness General Chief complaint: Shortness of Breath/Dyspnea Time Seen by Provider: 03/15/20 16:49 Source: patient Mode of arrival: ambulatory Limitations: no limitations History of Present Illness Provider complaint: Shortness of breath/cough This is a 49-year-old female who presents to the ED with a chief complaint of a cough productive of green sputum. She also reports shortness of breath that is worse with exertion. She reports nausea but no vomiting. She also has chest pressure. She is a chronic smoker. She states that she has been unable to smoke because of her symptoms. The patient was seen at the outpatient COVID clinic and had a cover test earlier today because of her symptoms. She was found to be tachycardic and sent here for further evaluation and care. Home Medications Home Medications Medication Instructions Recorded Confirmed Type cyanocobalamin (vitamin B-12) 1,000 mcg IM MONTHLY 01/27/19 01/16/20 History ibuprofen [Advil] 400 mg PO Q6H PRN 04/04/19 01/16/20 History naproxen sodium [Aleve] 440 mg PO BID PRN 04/04/19 01/16/20 History acetaminophen [Tylenol Extra 1,000 mg PO Q6H PRN 05/31/19 01/16/20 History Strength] diclofenac sodium 4 g TOPICAL QID PRN 05/31/19 01/16/20 History lidocaine 1 patch TOPICAL DAILY 01/16/20 01/16/20 History tramadol 50 mg PO Q6H PRN #4 tab 01/16/20 Rx Allergies Allergy/AdvReac Type Severity Reaction Status Date / Time poison stephen extract Allergy Intermediate Rash and Verified 01/16/20 13:07 blisters cephalexin AdvReac Severe Nausea,vomiting Verified 01/16/20 13:07 and diarrhea Past Med/Surg History Medical History Anxiety Avoidant personality disorder Borderline personality disorder Chronic pain of left lower extremity Depression with anxiety Hidradenitis suppurativa Hirsutism Immunodeficiency disorder Insomnia Low back pain Lymphedema Neuropathy Obesity Peripheral neuropathy Splenic rupture Unspecified asthma Vitamin D deficiency Surgical History H/O gastric bypass H/O: hysterectomy History of shoulder surgery Hx of cholecystectomy Family History Other No significant family history Social History Smoking Status: Current every day smoker Tobacco Type: Cigarettes Hx Alcohol Use: No Hx Substance Use: No Preferred Language: Citizen Of The [place] Communication Ability: Effective Visual Impairment: No Limitations Hearing Ability: Normal Beliefs That Will Affect Care: None marital status: Single Current Living Situation: Other Current Living Situation Comment: pt in engaged currently current occupational status: disabled Feels Safe at Home: Yes Childhood Exposure to Second-Hand Smoke: No caffeine: Yes (coffee 4 cups/day ) during the past year weight has: remained stable Dental Care, Regularly: Yes Physical Activity Frequency: 1-2 Times per Week Seatbelt Use: always Sunscreen Use: Yes Do you think of yourself as: straight/heterosexual Sexual Activity: has never been active Review of Systems A total of 10 systems reviewed and were otherwise negative Physical Exam Vital Signs Vital Signs - 24 hr 03/15/20 16:41 03/15/20 16:43 03/15/20 16:45 Temperature 37.1 C Temperature Source Oral Pulse Rate 147 H 151 H 146 H Pulse Rate [Right] Pulse Rate from SpO2 Sensor 147 H 145 H Pulse Rhythm [Right] Pulse Strength [Right] Respiratory Rate 20 20 20 Respiratory Effort / Characteristics Non-Labored Spontaneous Respiratory Depth Normal Respiratory Pattern Regular Blood Pressure 137/104 H 137/104 H Blood Pressure [Right Arm] Blood Pressure Mean 117 115 Blood Pressure Mean [Right Arm] Blood Pressure Position [Right Arm] Pulse Oximetry 90 91 90 Oxygen Delivery Method Room Air Oxygen Flow Rate Sepsis Recent Fever Within 48 Hours No Sepsis New/Unexplained Change in Mental Status No Sepsis Action Taken by Nursing No Action Required 03/15/20 17:00 03/15/20 17:05 03/15/20 17:30 Temperature Temperature Source Pulse Rate 147 H 151 H 142 H Pulse Rate [Right] Pulse Rate from SpO2 Sensor 146 H 142 H Pulse Rhythm [Right] Pulse Strength [Right] Respiratory Rate 22 20 18 Respiratory Effort / Characteristics Respiratory Depth Respiratory Pattern Blood Pressure 120/85 Blood Pressure [Right Arm] Blood Pressure Mean 91 Blood Pressure Mean [Right Arm] Blood Pressure Position [Right Arm] Pulse Oximetry 91 91 94 Oxygen Delivery Method Room Air Oxygen Flow Rate Sepsis Recent Fever Within 48 Hours Sepsis New/Unexplained Change in Mental Status Sepsis Action Taken by Nursing 03/15/20 17:49 03/15/20 18:10 03/15/20 18:25 Temperature Temperature Source Pulse Rate 138 H 107 H 98 H Pulse Rate [Right] Pulse Rate from SpO2 Sensor 138 H 98 H Pulse Rhythm [Right] Pulse Strength [Right] Respiratory Rate 18 18 18 Respiratory Effort / Characteristics Respiratory Depth Respiratory Pattern Blood Pressure 124/79 111/75 97/69 L Blood Pressure [Right Arm] Blood Pressure Mean 95 87 75 Blood Pressure Mean [Right Arm] Blood Pressure Position [Right Arm] Pulse Oximetry 94 83 L 85 L Oxygen Delivery Method Oxygen Flow Rate Sepsis Recent Fever Within 48 Hours Sepsis New/Unexplained Change in Mental Status Sepsis Action Taken by Nursing 03/15/20 18:27 03/15/20 19:18 Temperature Temperature Source Pulse Rate 92 H Pulse Rate [Right] 92 H Pulse Rate from SpO2 Sensor 91 H Pulse Rhythm [Right] Regular Pulse Strength [Right] Normal Respiratory Rate 24 22 Respiratory Effort / Characteristics Non-Labored Spontaneous Respiratory Depth Normal Respiratory Pattern Blood Pressure 111/75 Blood Pressure [Right Arm] 105/69 Blood Pressure Mean 85 Blood Pressure Mean [Right Arm] 81 Blood Pressure Position [Right Arm] Lying Pulse Oximetry 98 99 Oxygen Delivery Method Nasal Cannula Nasal Cannula Oxygen Flow Rate 3 3 Sepsis Recent Fever Within 48 Hours Sepsis New/Unexplained Change in Mental Status Sepsis Action Taken by Nursing CONSTITUTIONAL/VITAL SIGNS: Reviewed / noted above. GENERAL: Non-toxic in appearance. INTEGUMENTARY: Warm, dry, and [place]. HEAD: Normocephalic. EYES: without scleral icterus or trauma. ENT/OROPHARYNX: clear and moist. LYMPHADENOPATHY/NECK: Is supple without lymphadenopathy or meningismus. RESPIRATORY: Lungs clear and equal. CARDIOVASCULAR: Tachycardic rate and regular rhythm. GI/ABDOMEN: Soft and nontender. No organomegaly or pulsatile mass. No rebound or guarding. Normal bowel sounds. EXTREMITIES: Warm and well perfused. BACK: No CVA tenderness. NEUROLOGICAL: Intact without focal deficits. PSYCHIATRIC: normal affect. MUSCULOSKELETAL: Normally developed with good muscle tone. TRIAGE NURSING DOCUMENTATION REVIEWED. Course Administered Medications Discontinued Medications Sodium Chloride (Nss 1000ml) 1,000 mls @ 999 mls/hr IV .Q1H1M BRENDAN Stop: 03/15/20 18:00 Last Infusion: 03/15/20 18:57 Dose: 0 mls/hr Documented by: [id number] Admin: 03/15/20 17:51 Dose: 999 mls/hr Documented by: [id number] Cefepime HCl (Maxipime) 2,000 mg in 20 mls @ 5 mls/min IV NOW STA; Protocol Stop: 03/15/20 19:27 Last Admin: 03/15/20 19:31 Dose: 5 mls/min Documented by: [id number] Ioversol (Optiray 320 125ml) 119 ml IV ONCE ONE Stop: 03/15/20 19:15 Last Admin: 03/15/20 19:14 Dose: 119 ml Documented by: [id number] Metoprolol Tartrate (Metoprolol Tartrate 1 Mg/Ml Vial) 5 mg IV NOW STA Stop: 03/15/20 16:57 Last Admin: 03/15/20 17:55 Dose: 5 mg Documented by: [id number] Ondansetron HCl (Ondansetron Inj 2 Mg/Ml 2 Ml Vial) 4 mg IV NOW STA Stop: 03/15/20 17:06 Last Admin: 03/15/20 17:51 Dose: 4 mg Documented by: [id number] Medical Decision Making Differential Diagnosis The differential was considered includes acute myocardial infarction, acute coronary syndrome, myocarditis, pericarditis, pericardial effusions /tamponad, esophageal perforation, pulmonary embolism, pneumonia, pneumothorax, cardiomyopathy, congestive heart, anemia , COPD/asthma exacerbation. Medical Records Attestation: I reviewed the patient's medical records. Home Medications Current Medication List: was personally reviewed by me Laboratory Data Attestation: I reviewed the patient's lab results. Result diagrams: 03/15/20 17:15 03/15/20 17:15 Lab Results 03/15/20 03/15/20 03/15/20 Range/Units 17:15 17:15 17:15 WBC (4.8-10.8) K/uL RBC (4.2-5.4) M/uL Hgb (12.0-16.0) g/dL Hct (37-47) % MCV (80-100) fL MCH (25-34) pg MCHC (32-36) g/dL RDW Std Deviation (36.4-46.3) fL RDW Coeff of Kelli (11.5-14.5) % Plt Count (130-400) K/uL MPV (7.4-10.4) fL Immature Gran % (Auto) % Neut % (Auto) % Lymph % (Auto) % [place] % (Auto) % Eos % (Auto) % Baso % (Auto) % Neut # (Auto) (1.4-6.5) K/uL Lymph # (Auto) (1.2-3.4) K/uL [place] # (Auto) (0.11-0.59) K/uL Eos # (Auto) (0-0.5) K/uL Baso # (Auto) (0-0.2) K/uL Immature Gran # (Auto) (0.00-0.02) K/uL Hypochromasia Target Cells PT 10.8 (9.0-12.0) Seconds INR 1.0 (0.9-1.1) APTT 28.5 (21.0-31.0) Seconds PTT Ratio 1.0 D-Dimer 1020 H* (0-500) ug/L FEU Sodium 138 (136-145) mmol/L Potassium 4.4 (3.5-5.1) mmol/L Chloride 107 (98-107) mmol/L Carbon Dioxide 27 (21-32) mmol/L Anion Gap 4.0 (3-11) BUN 11 (7-18) mg/dl Creatinine 0.65 (0.6-1.2) mg/dl Est Cr Clr Drug Dosing 132.6 ml/min Est GFR ( Amer) 121.7 Est GFR (Non-Af Amer) 105.0 BUN/Creatinine Ratio 17.2 (10-20) Glucose 101 H (70-99) mg/dl Calcium 8.6 (8.5-10.1) mg/dl Total Bilirubin 0.6 (0.2-1) mg/dl AST 51 H (15-37) U/L ALT 42 (12-78) U/L Alkaline Phosphatase 166 H (45-117) U/L Troponin I 0.120 H* (0-0.045) ng/ml NT-Pro-B Natriuret Pep 7095 H (0-450) pg/ml Total Protein 7.2 (6.4-8.2) gm/dl Albumin 3.1 L (3.4-5.0) gm/dl Globulin 4.1 H (2.5-4.0) gm/dl Albumin/Globulin Ratio 0.8 L (0.9-2) HCG, Qual Negative (Negative) Urine Color Urine Appearance (Clear) Urine pH (4.5-7.5) Ur Specific [place] (1.000-1.030) Urine Protein (Negative) Urine Glucose (UA) (Negative) Urine Ketones (Negative) Urine Blood (Negative) Urine Nitrite (Negative) Urine Bilirubin (Negative) Urine Urobilinogen (Negative) Ur Leukocyte Esterase (Negative) Adenovirus (PCR) (NotDetected) B. pertussis DNA (PCR) (NotDetected) B.parapertussis DNA PCR (NotDetected) C. pneumoniae DNA (PCR) (NotDetected) Coronavirus OC43 (PCR) (NotDetected) Coronavirus HKU1 (PCR) (NotDetected) Coronavirus 229E (PCR) (NotDetected) COVID-19 PCR (NotDetected) Coronavirus NL63 (PCR) (NotDetected) Human Metapneumovir PCR (NotDetected) Influenza Type A (PCR) (NotDetected) Influenza Type B (PCR) (NotDetected) M. pneumoniae (PCR) (NotDetected) Parainfluenza 1 (PCR) (NotDetected) Parainfluenza 2 (PCR) (NotDetected) Parainfluenza 3 (PCR) (NotDetected) Parainfluenza 4 (PCR) (NotDetected) RSV (PCR) (NotDetected) Entero/Rhino (PCR) (NotDetected) 03/15/20 03/15/20 03/15/20 Range/Units 17:15 17:58 18:20 WBC 6.97 (4.8-10.8) K/uL RBC 4.02 L (4.2-5.4) M/uL Hgb 8.7 L (12.0-16.0) g/dL Hct 30.0 L (37-47) % MCV 74.6 L (80-100) fL MCH 21.6 L (25-34) pg MCHC 29.0 L (32-36) g/dL RDW Std Deviation 48.2 H (36.4-46.3) fL RDW Coeff of Kelli 17.7 H (11.5-14.5) % Plt Count 558 H (130-400) K/uL MPV 8.6 (7.4-10.4) fL Immature Gran % (Auto) 0.1 % Neut % (Auto) 77.1 % Lymph % (Auto) 16.1 % [place] % (Auto) 2.4 % Eos % (Auto) 4.0 % Baso % (Auto) 0.3 % Neut # (Auto) 5.37 (1.4-6.5) K/uL Lymph # (Auto) 1.12 L (1.2-3.4) K/uL [place] # (Auto) 0.17 (0.11-0.59) K/uL Eos # (Auto) 0.28 (0-0.5) K/uL Baso # (Auto) 0.02 (0-0.2) K/uL Immature Gran # (Auto) 0.01 (0.00-0.02) K/uL Hypochromasia Present Target Cells 1+ PT (9.0-12.0) Seconds INR (0.9-1.1) APTT (21.0-31.0) Seconds PTT Ratio D-Dimer (0-500) ug/L FEU Sodium (136-145) mmol/L Potassium (3.5-5.1) mmol/L Chloride (98-107) mmol/L Carbon Dioxide (21-32) mmol/L Anion Gap (3-11) BUN (7-18) mg/dl Creatinine (0.6-1.2) mg/dl Est Cr Clr Drug Dosing ml/min Est GFR ( Amer) Est GFR (Non-Af Amer) BUN/Creatinine Ratio (10-20) Glucose (70-99) mg/dl Calcium (8.5-10.1) mg/dl Total Bilirubin (0.2-1) mg/dl AST (15-37) U/L ALT (12-78) U/L Alkaline Phosphatase (45-117) U/L Troponin I (0-0.045) ng/ml NT-Pro-B Natriuret Pep (0-450) pg/ml Total Protein (6.4-8.2) gm/dl Albumin (3.4-5.0) gm/dl Globulin (2.5-4.0) gm/dl Albumin/Globulin Ratio (0.9-2) HCG, Qual (Negative) Urine Color Yellow Urine Appearance Clear (Clear) Urine pH 6.0 (4.5-7.5) Ur Specific [place] 1.010 (1.000-1.030) Urine Protein Negative (Negative) Urine Glucose (UA) Negative (Negative) Urine Ketones 1+ H (Negative) Urine Blood Negative (Negative) Urine Nitrite Negative (Negative) Urine Bilirubin Negative (Negative) Urine Urobilinogen Negative (Negative) Ur Leukocyte Esterase Negative (Negative) Adenovirus (PCR) Not Detected (NotDetected) B. pertussis DNA (PCR) Not Detected (NotDetected) B.parapertussis DNA PCR Not Detected (NotDetected) C. pneumoniae DNA (PCR) Not Detected (NotDetected) Coronavirus OC43 (PCR) Not Detected (NotDetected) Coronavirus HKU1 (PCR) Not Detected (NotDetected) Coronavirus 229E (PCR) Not Detected (NotDetected) COVID-19 PCR Not Detected (NotDetected) Coronavirus NL63 (PCR) Not Detected (NotDetected) Human Metapneumovir PCR Not Detected (NotDetected) Influenza Type A (PCR) Not Detected (NotDetected) Influenza Type B (PCR) Not Detected (NotDetected) M. pneumoniae (PCR) Not Detected (NotDetected) Parainfluenza 1 (PCR) Not Detected (NotDetected) Parainfluenza 2 (PCR) Not Detected (NotDetected) Parainfluenza 3 (PCR) Not Detected (NotDetected) Parainfluenza 4 (PCR) Not Detected (NotDetected) RSV (PCR) Not Detected (NotDetected) Entero/Rhino (PCR) Not Detected (NotDetected) Imaging Data Radiologist's Impression: CT scan of the chest: IMPRESSION: 1. No pulmonary emboli identified. 2. Mild dilatation of the central pulmonary arteries and right heart chambers with straightening of the interventricular septum. These findings suggest pulmonary arterial hypertension/elevated right heart pressures. 3. Extensive bilateral airspace opacities within the lungs with interlobular septal thickening. These findings are nonspecific. Differential considerations include pulmonary edema, an infectious etiology, ARDS, acute interstitial pneumonia, alveolar proteinosis, and pulmonary venoocclusive disease. These pulm onary findings could potentially account for elevated pulmonary arterial pressures. Pulmonary consultation might be considered. 4. Mild cardiomegaly. ECG Data Attestation: I personally reviewed and interpreted this ECG as follows: Indication: + chest pain Rate (beats per minute): 145 Rhythm: + sinus tachycardia ECG ST segments: no ST elevation ECG Findings: no PVCs MDM Narrative This is a 49-year-old female who presents with a cough productive of green sputum, nausea, shortness of breath as well as chest pain. Details listed above. The patient was found to have a heart rate of 145. She is in a sinus tach and/or atrial flutter with 2-1 conduction on my initial evaluation. Her exam is otherwise unremarkable. The patient's white blood cell count was normal. Hemoglobin is 8.7. D-dimer is elevated. Troponin is elevated. BNP is elevated. CT scan of the chest as noted above. She has extensive bilateral airspace opacities in the lungs. This could represent infectious versus edema versus ARDS etc. There was no PE. The patient was initially treated with a liter of normal saline IV. She was given 4 mg of IV Zofran and 5 mg of IV metoprolol for her tachycardia. Her heart rate improved. She was given IV cefepime. Oxygen saturations were in the high 90s on 3 L. She will need admitted for further evaluation and care. She was noted to be hypoxic at 1 point on room air. Her bio fire test came back negative. Impression & Plan Pneumonia, Respiratory failure, Anemia, Elevated troponin Discharge Plan Visit Data Chief Complaint: Shortness of Breath/Dyspnea ED Provider: Tima Cui Discharge Problem: Pneumonia, Respiratory failure, Anemia, Elevated troponin Patient Disposition: Being Evaluated by Hospitalist Forms Stand Alone Forms: My [facility] Elizabeth Qloud Prescriptions Prescriptions: No Action cyanocobalamin (vitamin B-12) 1,000 mcg/mL solution 1,000 mcg IM MONTHLY RF: 0 naproxen sodium [Aleve] 220 mg Tablet 440 mg PO BID PRN (Reason: Pain) RF: 0 ibuprofen [Advil] 200 mg Tablet 400 mg PO Q6H PRN (Reason: Pain) RF: 0 acetaminophen [Tylenol Extra Strength] 500 mg Tablet 1,000 mg PO Q6H PRN (Reason: Pain) RF: 0 diclofenac sodium 1 % gel 4 g TOPICAL QID PRN (Reason: Pain) RF: 0 tramadol 50 mg tablet 50 mg PO Q6H PRN (Reason: pain) Qty: 4 RF: 0 lidocaine 5 % adhesive patch,medicated 1 patch topical DAILY RF: 0 Referrals Referrals: Drew Caicedo MD [Primary Care Provider] - Discharge Problem: Pneumonia Qualifiers: Pneumonia type: due to unspecified organism Laterality: bilateral Lung location: unspecified part of lung Qualified Code(s): J18.9 - Pneumonia, unspe cified organism Respiratory failure Qualifiers: Chronicity: acute Respiratory failure complication: hypoxia Qualified Code(s): J96.01 - Acute respiratory failure with hypoxia Anemia Qualifiers: Anemia type: unspecified type Qualified Code(s): D64.9 - Anemia, unspecified
[2020-03-15 17:31] LABS: Basophils # (auto) 0.02 K/uL (0-0.2); Basophils % (auto) 0.3 %; Eosinophils # (auto) 0.28 K/uL (0-0.5); Hemoglobin 8.7 g/dL (12.0-16.0); Immature Granulocytes # (auto) 0.01 K/uL (0.00-0.02); Immature Granulocytes % (auto) 0.1 %; Lymphocytes # (auto) 1.12 K/uL (1.2-3.4); Lymphocytes % (auto) 16.1 %; Mean Corpuscular Hemoglobin 21.6 pg (25-34); Mean Corpuscular Volume 74.6 fL (80-100); Mean Platelet Volume 8.6 fL (7.4-10.4); Monocytes # (auto) 0.17 K/uL (0.11-0.59); Monocytes % (auto) 2.4 %; Neutrophils # (auto) 5.37 K/uL (1.4-6.5); Neutrophils % (auto) 77.1 %; Platelet Count 558 K/uL (130-400); RDW Coefficient of Variation 17.7 % (11.5-14.5); RDW Standard Deviation 48.2 fL (36.4-46.3); Red Blood Count 4.02 M/uL (4.2-5.4); White Blood Count 6.97 K/uL (4.8-10.8)
[2020-03-15 17:42] LABS: Partial Thromboplastin Time 28.5 Seconds (21.0-31.0); Prothrombin Time 10.8 Seconds (9.0-12.0)
[2020-03-15 17:48] LABS: Albumin Level 3.1 gm/dl (3.4-5.0); BUN Creatinine Ratio 17.2 (10-20); Calcium 8.6 mg/dl (8.5-10.1); Creatinine Clr Calc Pharmacy 132.6 ml/min; Est GFR (African American) 121.7; Potassium 4.4 mmol/L (3.5-5.1)
[2020-03-15 17:52] LABS: D Dimer 1020 ug/L FEU (0-500)
[2020-03-15 17:54] LABS: Hypochromasia Present; Pregnancy Test, Serum Negative (Negative); Target Cells 1+
[2020-03-15 18:03] LABS: Albumin Globulin Ratio 0.8 (0.9-2); Bilirubin,Total 0.6 mg/dl (0.2-1); Globulin 4.1 gm/dl (2.5-4.0); Total Protein 7.2 gm/dl (6.4-8.2); Troponin I 0.12 ng/ml (0-0.045)
[2020-03-15 18:53] LABS: Appearance Urine Clear (Clear); Bilirubin Urine Negative (Negative); Blood Urine Negative (Negative); Color Urine Yellow; Glucose Urine UA Negative (Negative); Ketones Urine 1+ (Negative); Leukocyte Esterase Urine Negative (Negative); Nitrite Urine Negative (Negative); Protein Urine Negative (Negative); Urobilinogen Urine Negative (Negative)
[2020-03-15 19:05] LABS: Adenovirus PCR Not Detected (NotDetected); Bordetella parapertussis PCR Not Detected (NotDetected); Bordetella pertussis PCR Not Detected (NotDetected); Chlamydia pneumoniae PCR Not Detected (NotDetected); Coronavirus 229E PCR Not Detected (NotDetected); Coronavirus CoV-2 (COVID19)PCR Not Detected (NotDetected); Coronavirus HKU1 PCR Not Detected (NotDetected); Coronavirus NL63 PCR Not Detected (NotDetected); Coronavirus OC43PCR Not Detected (NotDetected); Human Metapneumovirus PCR Not Detected (NotDetected); Influenza A PCR Not Detected (NotDetected); Influenza B PCR Not Detected (NotDetected); Mycoplasma pneumoniae PCR Not Detected (NotDetected); Parainfluenza Virus 1 PCR Not Detected (NotDetected); Parainfluenza Virus 2 PCR Not Detected (NotDetected); Parainfluenza Virus 3 PCR Not Detected (NotDetected); Parainfluenza Virus 4 PCR Not Detected (NotDetected); Respiratory Syncytial VirusPCR Not Detected (NotDetected); Rhinovirus/Enterovirus PCR Not Detected (NotDetected)
[2020-03-15] MEDS ORDERED: OPTIRAY 320 125ml IV ONE (19:14)
[2020-03-15] MEDS ORDERED: CEFEPIME 2,000 MG/20 ML VIAL IV STA (19:24)
--- NOTE | 2020-03-15 19:37 | CT Scan Report ---
CT ANGIOGRAPHY OF THE CHEST, PULMONARY EMBOLUS PROTOCOL CLINICAL HISTORY: cp/sob, elev ddimer COMPARISON STUDY: Chest CT July 19, 2018. Chest radiograph August 21, 2019. TECHNIQUE: Following IV administration of 119 mL of Optiray-320, helical axial images of the chest we re obtained utilizing the pulmonary embolus protocol. Maximal intensity projections and sagittal and coronal reformats were viewed on an independent 3D workstation. IV contrast was administered withou t complication. Automated exposure control was utilized for the study. A dose lowering technique wa s utilized adhering to the principles of ALARA. CT DOSE: 532.48 mGy.cm FINDINGS: No pulmonary emboli are identified. There is mild dilatation of the central pulmonary arter ies. There is also dilatation of the right heart chambers and straightening of the interventricular s eptum. There is no pericardial effusion. The heart is mildly enlarged. No thoracic aortic dissection is identified although opacification of the thoracic aorta is suboptimal. There is no pneumothorax or pleural effusion. Note is made of extensive bilateral airspace opacities with associated interlobula r septal thickening. Central airways are patent. Visualized portions of the upper abdomen demonstrate postoperative findings within the stomach as well as coils within the splenic artery. Irregularity o f the spleen is chronic. IMPRESSION: 1. No pulmonary emboli identified. 2. Mild dilatation of the central pulmonary arteries and right heart chambers with straightening of t he interventricular septum. These findings suggest pulmonary arterial hypertension/elevated right hea rt pressures. 3. Extensive bilateral airspace opacities within the lungs with interlobular septal thickening. These findings are nonspecific. Differential considerations include pulmonary edema, an infectious etiolog y, ARDS, acute interstitial pneumonia, alveolar proteinosis, and pulmonary venoocclusive disease. The se pulmonary findings could potentially account for elevated pulmonary arterial pressures. Pulmonary consultation might be considered. 4. Mild cardiomegaly. ACT 112: Negative or not required by law. Electronically signed by: Bobby Mata M.D. 03/15/2020 7:35 PM
--- NOTE | 2020-03-15 19:38 | XRay Report ---
XR chest 1V portable CLINICAL HISTORY: Dyspnea COMPARISON STUDY: Chest radiograph August 21, 2019. FINDINGS: There is no pneumothorax. Blunting of the left costophrenic angle is chronic. Mild cardiome erik is noted. Interstitial thickening and bilateral opacities have developed. There is no lobar cons olidation. Endovascular coils project of the left upper quadrant. IMPRESSION: Interval development of interstitial thickening and bilateral opacities. The findings fa vor pulmonary edema although an infectious process could appear similar. Radiographic follow up is re commended. ACT 112: Negative or not required by law. Electronically signed by: Bobby Mata M.D. 03/15/2020 7:37 PM
[2020-03-15] MEDS ORDERED: ONDANSETRON INJ 2 MG/ML 2 ML VIAL IV PRN (22:13)
[2020-03-15] MEDS ORDERED: NITROGLYCERIN SL 0.4 MG/TAB TAB SL PRN (22:13)
[2020-03-15] MEDS ORDERED: ACETAMINOPHEN 325 MG TAB PO PRN (22:13)
[2020-03-15] MEDS ORDERED: METOPROLOL TARTRATE 1 MG/ML VIAL IV PRN (22:13)
[2020-03-15] MEDS ORDERED: Nursing to Pharmacy Communication SCH (22:45)
[2020-03-15] MEDS: DOXYCYCLINE HYCLATE 100 MG in DEXTROSE 5% 100 ML IV SCH (23:24)
--- NOTE | 2020-03-16 00:48 | History and Physical Report ---
DATE OF ADMISSION: 03/15/2020 CHIEF COMPLAINT: Shortness of breath and chest pain. HISTORY OF PRESENT ILLNESS: This is a 49-year-old female with past medical history significant for post-gastric surgery syndrome, hidradenitis, history of common variable immunodeficiency, which patient attributes to her gastric bypass surgery, history of posttraumatic stress disorder, borderline personality disorder, history of opiate abuse, comes in because of shortness of breath. The patient says she lives alone. She still smokes 1 pack a day for more than 20 years, since about 1 week when she goes out to smoke, she gets short of breath and she is coughing up greenish phlegm and with exertion gets more short of breath. Says also she is dropping things at home. Denies any fever, chills. She is also getting chest pain on exertion, sometimes 9/10 in severity, pressure like and sharp pains, radiating to her left arm which prompted her to go to the family doctor and was advised to come to the ER. Here, in the ER, she is afebrile, no leukocytosis, but has lymphopenia and D-dimer was elevated at 1020. Troponin was 0.12. BNP was 7000. UA was negative, Biofire was negative. CTA of the chest was done which shows bilateral airspace opacities with interval septal thickening, could be pulmonary edema, could be pneumonia, could also suggest pulmonary arterial hypertension, elevated right heart pressures.When the patient came in, she was tachycardic, heart rate in 145 so she was given a liter of fluid and IV Lopressor,. Oxygen sats in 80's on room air.Now she is saturating in high 90s on 3 liters and blood pressure is okay and heart rate is okay. The patient says she has chronic headaches and neck pains. She has blurred visions going on for the last 3 years. Denies any earache. She has had runny nose for 1.5 years. Denies any sore throat. She has a dry mouth. Denies any loss of sense of smell or taste. No exposure to any COVID patients, lives alone. She was nauseous since last 2 days, so she did not eat much since last 2 days. Denies any vomiting, no diarrhea or constipation. Normal bladder movements. Has chronic lower extremity edema. She says this is going on for last 1-1.5 years. No rash seen. ALLERGIES: CEPHALEXIN, POISON BELINDA EXTRACT. PAST MEDICAL HISTORY: As mentioned above. PAST SURGICAL HISTORY: Gastric bypass for obesity, punch biopsy, right breast, cholecystectomy, removal of sweat gland lesion, perianal, tonsillectomy, adenoidectomy. MEDICATIONS: The patient is on Tylenol 1000 mg p.o. q. 6 hours p.r.n., baclofen 10 mg p.o. b.i.d., vitamin B12 1000 mcg IM monthly, diclofenac sodium 4 grams topical q.i.d. p.r.n., Benadryl 50mg mg p.o. at bedtime p.r.n., duloxetine 60 mg p.o. daily, gabapentin 600 mg p.o. at bedtime p.r.n., Advil 400 mg p.o. q. 6 p.r.n., tramadol 50 mg p.o. q. 6 hours p.r.n. FAMILY HISTORY: On file. SOCIAL HISTORY: Single, smokes 1 pack a day for last 20 years. No alcohol use, no drug use as per records. REVIEW OF SYMPTOMS: As per HPI. Rest of review of symptoms negative. PHYSICAL EXAMINATION: GENERAL: The patient is of moderate build, not in acute distress. VITAL SIGNS: Temperature 37.1, 18 respiratory rate, pulse was 140s, when she came in, currently 83, blood pressure 124/79 and oxygen 96% on 3 liters, when she came was 83% on room air. HEENT: No pallor, no icterus. Pupils equal, round, reactive to light. Oral mucosa dry. Possible thrush. NECK: No JVD seen. No neck masses seen. CARDIOVASCULAR: S1, S2 heard, regular rate and rhythm, no murmur, no gallop. RESPIRATORY SYSTEM: Normal AP diameter. No accessory muscle use. Mild bibasilar crackles heard. No wheezing. ABDOMEN: Soft, bowel sounds present. Mild epigastric tenderness present, no guarding, no rigidity. CENTRAL NERVOUS SYSTEM: Cranial nerves II-XII grossly intact, nonfocal. EXTREMITIES: Bilateral lower extremity edema seen, no erythema seen. LABORATORY DATA: WBC 6.9, hemoglobin 8.7, hematocrit 30, platelets 558. PT 10.9, INR 1, APTT 28.5. D-dimer 1020. Sodium 138, potassium 4.4, chloride 107, bicarbonate 27, BUN 11, creatinine 0.6, serum glucose 101, calcium 8.6, total bilirubin 0.6, AST 51, ALT 42, alkaline phosphatase 166. Troponin I 0.1. BNP 7095. HCG qualitative negative. Urinalysis negative except for +1 ketones. BioFire negative. IMAGING: Chest x-ray, interval development of interstitial thickening and bilateral opacities, findings of pulmonary edema, although an infectious process could appear similar. Chest CTA, no pulmonary emboli identified. Mild dilatation of central pulmonary arteries and right heart chambers with straightening of the intraventricular septum. These findings suggest pulmonary arterial hypertension, elevated right heart pressures, extensive bilateral airspace opacities within the lungs with interlobular septal thickening. These findings are nonspecific. Differential considerations include pulmonary edema, infectious etiology, ARDS, acute interstitial pneumonia, alveolar proteinosis and alveolar pulmonary venous occlusive disease, the primary findings could potentially account for elevated pulmonary artery pressures, pulmonary consultation might be considered, mild cardiomegaly. EKG: Shows poor quality interpretation: Sinus tachycardia, rate of 145. ST depressions in anterior leads, T-wave inversions were seen on the inferior leads. ASSESSMENT AND PLAN: This is a 49-year-old female who presents with shortness of breath on exertion and chest pain on exertion. 1. Shortness of breath and hypoxia requiring oxygen supplementation, mostly likely secondary to bilateral pneumonia, could be congestive heart failure or could be pulmonary hypertension. D-dimer is elevated, but CTA of chest, no PE, showing pulmonary hypertension, possible pneumonia, possible ARDS kind of picture. She was tachycardic when she came in. Received fluids and IV Lopressor. Currently saturating fine on 3 liters and heart rates are ok. Hemodynamically stable. Received cefepime in the ER. We will continue with Rocephin and doxycycline. Follow the cultures. Follow the response. BioFire was negative and COVID-19 was negative on the BioFire. Will monitor on the tele floor. Consult pulmonary for further recommendations. 2. Chest pain on exertion. Troponin is mildly elevated. BNP is elevated. Says she has chronic lower extremity edema, could be CHF kind of picture, will follow serial enzymes, echocardiogram. Currently, chest pain free. We will monitor in tele floor. Consult cardiology in a.m. for further recommendation. We will keep n.p.o. after midnight. 3. History of gastric bypass surgery, 4. anemia, hemoglobin 8.7. We will do the stool for Hemoccult, iron studies, vitamin B12, folate studies, the patient has history of gastric bypass. 5. History of PTSD, continue duloxetine. 6. Deep venous thrombosis prophylaxis, sequential compression devices for now. 7. Disposition: Admit to tele floor. Expect discharge home and follow with family doctor. Level 1 full code. MTDD
[2020-03-16 07:01] LABS: Basophils # (auto) 0.02 K/uL (0-0.2); Basophils % (auto) 0.5 %; Eosinophils # (auto) 0.38 K/uL (0-0.5); Eosinophils % (auto) 8.9 %; Hematocrit (blood only) 25.2 % (37-47); Hemoglobin 7.5 g/dL (12.0-16.0); Immature Granulocytes # (auto) 0.01 K/uL (0.00-0.02); Immature Granulocytes % (auto) 0.2 %; Lymphocytes # (auto) 1.12 K/uL (1.2-3.4); Lymphocytes % (auto) 26.2 %; Mean Corpuscular Hemoglobin 22.4 pg (25-34); Mean Corpuscular Hgb Conc 29.8 g/dL (32-36); Mean Corpuscular Volume 75.2 fL (80-100); Mean Platelet Volume 8.6 fL (7.4-10.4); Monocytes # (auto) 0.16 K/uL (0.11-0.59); Monocytes % (auto) 3.7 %; Neutrophils # (auto) 2.59 K/uL (1.4-6.5); Neutrophils % (auto) 60.5 %; Platelet Count 494 K/uL (130-400); RDW Coefficient of Variation 17.8 % (11.5-14.5); RDW Standard Deviation 49.6 fL (36.4-46.3); Red Blood Count 3.35 M/uL (4.2-5.4); White Blood Count 4.28 K/uL (4.8-10.8)
[2020-03-16 07:30] LABS: Hypochromasia Present; Microcytosis Present; Target Cells 1+
[2020-03-16 07:35] LABS: BUN Creatinine Ratio 16.2 (10-20); Calcium 8.7 mg/dl (8.5-10.1); Creatinine Clr Calc Pharmacy 136.1 ml/min; Est GFR (African American) 123.6; Est GFR (Non-African American) 106.6; Magnesium 2.1 mg/dl (1.8-2.4); Potassium 4.6 mmol/L (3.5-5.1)
[2020-03-16 07:59] LABS: Ferritin 54.7 ng/ml (8-388); Troponin I 0.053 ng/ml (0-0.045)
[2020-03-16] MEDS: DULOXETINE HCL 60 MG CAP PO SCH (09:38)
[2020-03-16] MEDS: BACLOFEN 10 MG TAB PO SCH ×2 (09:38→20:38)
[2020-03-16] MEDS: MICONAZOLE NITRATE POWDER 43 GM EXT SCH ×3 (09:38→20:38)
[2020-03-16] MEDS: cefTRIAXone SODIUM 2,000 MG in DEXTROSE 5% 50 ML IV SCH (09:40)
--- NOTE | 2020-03-16 10:19 | Cardiology Consultation ---
Date of Consultation March 16, 2020 Assessment & Plan (1) Respiratory failure: (2) Anemia: (3) Elevated troponin: (4) Chest pain at rest: Complex 49-year-old female seen in cardiology consultation due to chest pain and elevated troponin. Findings felt to represent demand based ischemia in the setting of acute respiratory failure as well as significant anemia. Patient is feeling significantly improved following measures on admission including supplemental oxygen, fluid resuscitation, IV antibiotics. She is currently chest pain-free. Resting echocardiogram is currently pending interpretation. Would recommend conservative inpatient management. Once over the acute respiratory illness, and following correction of the symptomatic anemia, would consider outpatient pharmacological stress testing to assess for significant obstructive coronary artery disease. Recommend risk factor and lifestyle modification. Supervising Physician Co-Signing Physician Notes I have discussed the case with Mr. Gavin, reviewed the medical record and examined the patient. I agree with the plan as outlined. I would recommend treating the patient's other medical problems and then considering an outpatient stress test. History of Present Illness Reason for Consultation: Chest pain, elevated troponin Requesting Physician: Prashant Attending Physician: Drew Peters MD History of Present Illness Ms. Minerva Augustin is a 49-year-old female with significant past medical history detailed below who was admitted to the hospital on March 15, 2020, presenting to the ER with acute on chronic dyspnea as well as chest discomfort. The patient states as we entered the room "I thought I had COVID." She describes experiencing generalized weakness, acute on chronic dyspnea, cough and chest congestion, stating she felt as though she was drowning. She describes productive phlegm a few days ago. She also notes cold sweats. She describes chest discomfort "like someone is sitting on my chest." She was notably tachycardic on presentation, receiving IV fluid resuscitation as well as IV Lopressor with improvement. Oxygen saturations were in the 80s on presentation. Initial EKG revealed sinus tachycardia at [address]-T wave abnormality. The second EKG obtained this morning revealed normal sinus rhythm at 82 bpm with a possible old anterior infarct and diffuse ST-T wave abnorm ality. Troponin on presentation was 0.120 then 0.088 followed by 0.053. Hemoglobin was notably 8.7 on presentation, 7.5 this morning. Chest x-ray showed interstitial thickening and bilateral opacities with findings favoring pulmonary edema. CT scan of her chest was negative for PE, revealing extensive bilateral airspace opacities within the lungs with interlobar septal thickening. COVID screen negative. Patient received IV fluid administration, supplemental oxygen, and defepime in the ER with significant improvement reported this morning. Allergies Allergy/AdvReac Type Severity Reaction Status Date / Time poison setphen extract Allergy Intermediate Rash and Verified 03/15/20 20:26 blisters cephalexin AdvReac Severe Nausea,vomiting Verified 03/15/20 20:26 and diarrhea Home Medications Home Medications Medication Instructions Recorded Confirmed Type cyanocobalamin (vitamin B-12) 1,000 mcg IM MONTHLY 01/27/19 03/15/20 History ibuprofen [Advil] 400 mg PO Q6H PRN 04/04/19 03/15/20 History naproxen sodium [Aleve] 440 mg PO BID PRN 04/04/19 03/15/20 History acetaminophen [Tylenol Extra 1,000 mg PO Q6H PRN 05/31/19 03/15/20 History Strength] diclofenac sodium 4 g TOPICAL QID PRN 05/31/19 03/15/20 History lidocaine 1 patch TOPICAL DAILY PRN 01/16/20 03/15/20 History tramadol 50 mg PO Q6H PRN #4 tab 01/16/20 03/15/20 Rx baclofen 10 mg PO BID 03/15/20 03/15/20 History diphenhydramine HCl [Benadryl] 50 mg PO HS PRN 03/15/20 03/15/20 History duloxetine 60 mg PO DAILY 03/15/20 03/15/20 History gabapentin 600 mg PO HS PRN 03/15/20 03/15/20 History Patient History Medical History Anxiety Avoidant personality disorder Borderline personality disorder Chronic pain of left lower extremity Depression with anxiety Hidradenitis suppurativa Hirsutism Immunodeficiency disorder Insomnia Low back pain Lymphedema Neuropathy Obesity Peripheral neuropathy Splenic rupture Unspecified asthma Vitamin D deficiency Surgical History H/O gastric bypass H/O: hysterectomy History of shoulder surgery Hx of cholecystectomy Family History Other No significant family history Social History Smoking Status: Current every day smoker Tobacco Type: Cigarettes Cigarettes Per Day: 20; Second Hand Exposure: Yes; Do You Dip or Chew Tobacco: No; Tobacco Cessation Education Requested by Patient: No Hx Alcohol Use: No Hx Substance Use: No Preferred Language: Maltese Communication Ability: Effective Visual Impairment: No Limitations Hearing Ability: Normal Cloth Shearing Supervisor Required: No Beliefs That Will Affect Care: None marital status: Single Current Living Situation: Alone Current Living Situation Comment: " I was living with somebody up until this morning." current occupational status: disabled Other Information That Helps Us Care for You: No Feels Safe at Home: Yes Childhood Exposure to Second-Hand Smoke: No caffeine: Yes (coffee 4 cups/day ) during the past year weight has: remained stable Dental Care, Regularly: Yes Physical Activity Frequency: 1-2 Times per Week Seatbelt Use: always Sunscreen Use: Yes Do you think of yourself as: straight/heterosexual Sexual Activity: has never been active Assistive Devices: Oxygen - Continuous Review of Systems Review of Systems: All systems reviewed & are unremarkable except as noted in HPI & below Constitutional: + sweats, + fatigue, + malaise and + weakness Respiratory: + cough, + chest congestion, + dyspnea, + dyspnea on exertion and + sputum production; no hemoptysis Cardiovascular: + chest pain, + dyspnea at rest and + dyspnea on exertion Additional Comments: Preeclampsia Musculoskeletal: + muscle weakness Integumentary: no rash Psychiatric: + panic attacks Recently lost her boyfriend of 5 years Endocrine: + fatigue Physical Exam Physical Exam: General: A&Ox3. NAD. HEENT: Normocephalic. Atraumatic. PER. Conjunctiva pink, sclera clear. No carotid bruits. No JVD. Heart: RRR. No murmur. No rub. No gallop. PMI is nondisplaced. Lungs: Clear to auscultation. Abdomen: +BS. Soft. Nontender. No masses or organomegaly. Extremities: No clubbing, cyanosis, or edema. Limited neurological examination is without focal deficits. Pulses: Posterior tibial=2/4. Results & Data ([facility]) Vital Signs (Past 12 Hours) Vital Signs Temp Pulse Pulse Resp BP BP Pulse Ox 03/16/20 07:24 36.7 C 85 16 115/80 100 03/16/20 04:51 36.8 C 86 16 111/74 97 03/16/20 00:00 104 H 03/15/20 23:05 37 C 90 18 103/70 98 Laboratory Results Laboratory Results - last 24 hr 03/15/20 03/15/20 03/15/20 17:15 17:15 17:15 WBC RBC Hgb Hct MCV MCH MCHC RDW Std Deviation RDW Coeff of Kelli Plt Count MPV Immature Gran % (Auto) Neut % (Auto) Lymph % (Auto) [place] % (Auto) Eos % (Auto) Baso % (Auto) Neut # (Auto) Lymph # (Auto) [place] # (Auto) Eos # (Auto) Baso # (Auto) Immature Gran # (Auto) Hypochromasia Microcytosis Target Cells PT 10.8 INR 1.0 APTT 28.5 PTT Ratio 1.0 D-Dimer 1020 H* Sodium 138 Potassium 4.4 Chloride 107 Carbon Dioxide 27 Anion Gap 4.0 BUN 11 Creatinine 0.65 Est Cr Clr Drug Dosing 132.6 Est GFR ( Amer) 121.7 Est GFR (Non-Af Amer) 105.0 BUN/Creatinine Ratio 17.2 Glucose 101 H Calcium 8.6 Magnesium Iron TIBC Ferritin Total Bilirubin 0.6 AST 51 H ALT 42 Alkaline Phosphatase 166 H Troponin I 0.120 H* NT-Pro-B Natriuret Pep 7095 H Total Protein 7.2 Albumin 3.1 L Globulin 4.1 H Albumin/Globulin Ratio 0.8 L Vitamin B12 Folate HCG, Qual Negative Urine Color Urine Appearance Urine pH Ur Specific [place] Urine Protein Urine Glucose (UA) Urine Ketones Urine Blood Urine Nitrite Urine Bilirubin Urine Urobilinogen Ur Leukocyte Esterase Adenovirus (PCR) B. pertussis DNA (PCR) B.parapertussis DNA PCR C. pneumoniae DNA (PCR) Coronavirus OC43 (PCR) Coronavirus HKU1 (PCR) Coronavirus 229E (PCR) COVID-19 PCR Coronavirus NL63 (PCR) Human Metapneumovir PCR Influenza Type A (PCR) Influenza Type B (PCR) M. pneumoniae (PCR) Parainfluenza 1 (PCR) Parainfluenza 2 (PCR) Parainfluenza 3 (PCR) Parainfluenza 4 (PCR) RSV (PCR) Entero/Rhino (PCR) 03/15/20 03/15/20 03/15/20 17:15 17:58 18:20 WBC 6.97 RBC 4.02 L Hgb 8.7 L Hct 30.0 L MCV 74.6 L MCH 21.6 L MCHC 29.0 L RDW Std Deviation 48.2 H RDW Coeff of Kelli 17.7 H Plt Count 558 H MPV 8.6 Immature Gran % (Auto) 0.1 Neut % (Auto) 77.1 Lymph % (Auto) 16.1 [place] % (Auto) 2.4 Eos % (Auto) 4.0 Baso % (Auto) 0.3 Neut # (Auto) 5.37 Lymph # (Auto) 1.12 L [place] # (Auto) 0.17 Eos # (Auto) 0.28 Baso # (Auto) 0.02 Immature Gran # (Auto) 0.01 Hypochromasia Present Microcytosis Target Cells 1+ PT INR APTT PTT Ratio D-Dimer Sodium Potassium Chloride Carbon Dioxide Anion Gap BUN Creatinine Est Cr Clr Drug Dosing Est GFR ( Amer) Est GFR (Non-Af Amer) BUN/Creatinine Ratio Glucose Calcium Magnesium Iron TIBC Ferritin Total Bilirubin AST ALT Alkaline Phosphatase Troponin I NT-Pro-B Natriuret Pep Total Protein Albumin Globulin Albumin/Globulin Ratio Vitamin B12 Folate HCG, Qual Urine Color Yellow Urine Appearance Clear Urine pH 6.0 Ur Specific [place] 1.010 Urine Protein Negative Urine Glucose (UA) Negative Urine Ketones 1+ H Urine Blood Negative Urine Nitrite Negative Urine Bilirubin Negative Urine Urobilinogen Negative Ur Leukocyte Esterase Negative Adenovirus (PCR) Not Detected B. pertussis DNA (PCR) Not Detected B.parapertussis DNA PCR Not Detected C. pneumoniae DNA (PCR) Not Detected Coronavirus OC43 (PCR) Not Detected Coronavirus HKU1 (PCR) Not Detected Coronavirus 229E (PCR) Not Detected COVID-19 PCR Not Detected Coronavirus NL63 (PCR) Not Detected Human Metapneumovir PCR Not Detected Influenza Type A (PCR) Not Detected Influenza Type B (PCR) Not Detected M. pneumoniae (PCR) Not Detected Parainfluenza 1 (PCR) Not Detected Parainfluenza 2 (PCR) Not Detected Parainfluenza 3 (PCR) Not Detected Parainfluenza 4 (PCR) Not Detected RSV (PCR) Not Detected Entero/Rhino (PCR) Not Detected 03/15/20 03/16/20 03/16/20 22:45 06:33 06:33 WBC 4.28 L RBC 3.35 L Hgb 7.5 L Hct 25.2 L MCV 75.2 L MCH 22.4 L MCHC 29.8 L RDW Std Deviation 49.6 H RDW Coeff of Kelli 17.8 H Plt Count 494 H MPV 8.6 Immature Gran % (Auto) 0.2 Neut % (Auto) 60.5 Lymph % (Auto) 26.2 [place] % (Auto) 3.7 Eos % (Auto) 8.9 Baso % (Auto) 0.5 Neut # (Auto) 2.59 Lymph # (Auto) 1.12 L [place] # (Auto) 0.16 Eos # (Auto) 0.38 Baso # (Auto) 0.02 Immature Gran # (Auto) 0.01 Hypochromasia Present Microcytosis Present Target Cells 1+ PT INR APTT PTT Ratio D-Dimer Sodium 140 Potassium 4.6 Chloride 108 H Carbon Dioxide 27 Anion Gap 5.0 BUN 10 Creatinine 0.62 Est Cr Clr Drug Dosing 136.1 Est GFR ( Amer) 123.6 Est GFR (Non-Af Amer) 106.6 BUN/Creatinine Ratio 16.2 Glucose 91 Calcium 8.7 Magnesium 2.1 Iron 13 L TIBC 282 Ferritin 54.7 Total Bilirubin AST ALT Alkaline Phosphatase Troponin I 0.088 H* 0.053 H* NT-Pro-B Natriuret Pep Total Protein Albumin Globulin Albumin/Globulin Ratio Vitamin B12 Folate HCG, Qual Urine Color Urine Appearance Urine pH Ur Specific [place] Urine Protein Urine Glucose (UA) Urine Ketones Urine Blood Urine Nitrite Urine Bilirubin Urine Urobilinogen Ur Leukocyte Esterase Adenovirus (PCR) B. pertussis DNA (PCR) B.parapertussis DNA PCR C. pneumoniae DNA (PCR) Coronavirus OC43 (PCR) Coronavirus HKU1 (PCR) Coronavirus 229E (PCR) COVID-19 PCR Coronavirus NL63 (PCR) Human Metapneumovir PCR Influenza Type A (PCR) Influenza Type B (PCR) M. pneumoniae (PCR) Parainfluenza 1 (PCR) Parainfluenza 2 (PCR) Parainfluenza 3 (PCR) Parainfluenza 4 (PCR) RSV (PCR) Entero/Rhino (PCR) 03/16/20 06:33 WBC RBC Hgb Hct MCV MCH MCHC RDW Std Deviation RDW Coeff of Kelli Plt Count MPV Immature Gran % (Auto) Neut % (Auto) Lymph % (Auto) [place] % (Auto) Eos % (Auto) Baso % (Auto) Neut # (Auto) Lymph # (Auto) [place] # (Auto) Eos # (Auto) Baso # (Auto) Immature Gran # (Auto) Hypochromasia Microcytosis Target Cells PT INR APTT PTT Ratio D-Dimer Sodium Potassium Chloride Carbon Dioxide Anion Gap BUN Creatinine Est Cr Clr Drug Dosing Est GFR ( Amer) Est GFR (Non-Af Amer) BUN/Creatinine Ratio Glucose Calcium Magnesium Iron TIBC Ferritin Total Bilirubin AST ALT Alkaline Phosphatase Troponin I NT-Pro-B Natriuret Pep Total Protein Albumin Globulin Albumin/Globulin Ratio Vitamin B12 1702 H Folate 6.93 HCG, Qual Urine Color Urine Appearance Urine pH Ur Specific [place] Urine Protein Urine Glucose (UA) Urine Ketones Urine Blood Urine Nitrite Urine Bilirubin Urine Urobilinogen Ur Leukocyte Esterase Adenovirus (PCR) B. pertussis DNA (PCR) B.parapertussis DNA PCR C. pneumoniae DNA (PCR) Coronavirus OC43 (PCR) Coronavirus HKU1 (PCR) Coronavirus 229E (PCR) COVID-19 PCR Coronavirus NL63 (PCR) Human Metapneumovir PCR Influenza Type A (PCR) Influenza Type B (PCR) M. pneumoniae (PCR) Parainfluenza 1 (PCR) Parainfluenza 2 (PCR) Parainfluenza 3 (PCR) Parainfluenza 4 (PCR) RSV (PCR) Entero/Rhino (PCR) Diagnostic Findings Continuous telemetry monitoring reveals sinus rhythm in the 70 to 80 bpm range. No significant arrhythmias observed. (1) Anemia Anemia type: unspecified type Qualified Code(s): D64.9 - Anemia, unspecified (2) Respiratory failure Chronicity: acute Respiratory failure complication: hypoxia Qualified Code(s): J96.01 - Acute respiratory failure with hypoxia
[2020-03-16 10:20] LABS: Folate (Folic Acid) 6.93 ng/ml (>5.38)
[2020-03-16] MEDS: DOXYCYCLINE HYCLATE 100 MG in DEXTROSE 5% 100 ML IV SCH ×2 (12:24→22:09)
--- NOTE | 2020-03-16 15:18 | Pulmonary Consultation ---
Date of Consultation March 16, 2020 Assessment & Plan (1) Acute respiratory failure with hypoxia: CT chest 03/15/2020 personally reviewed: Patient has diffuse groundglass opacities appreciated bilaterally with may be peripheral sparing especially in the upper lobes there is interlobular thickening appreciated as well going up to the apex. Insignificant mediastinal lymphadenopathy I looked at previous CT scan of chest which didn't show similar findings. --Acute hypoxic respiratory failure With diffuse groundglass opacity and peripheral sparing along with interlobular thickening BNP 7095, influenza as well as parainfluenza negative, Covid-19 negative on presentation to the ED ESR: 66, CRP 8.2, LDH 299, CK 208 Patient does have lymphopenia, she had lymphopenia in the past as well once. Patient's hemoglobin today is 7.5 at the time of presentation was 8.7. Her baseline is around 11 with last hemoglobin being 11 on In a patient who is a drug abuser presenting with diffuse groundglass opacities as above pulmonary edema could present this way --> I would rather have the patient get Lasix to diurese her to see if that would help her. Even though patient has no hemoptysis, diffuse alveolar hemorrhage is also a possibility. The drop in hemoglobin could be because patient got approximately 2.5 L since coming to the hospital. I do not think there is hemolysis given that T bili was 0.6 at the time of presentation. Interstitial lung disease/NSIP-like pattern can present this way and has large differential which includes but not limited to DAH, RB ILD, lupus, HP --> autoimmune work-up has been ordered will follow it up I would recommend an HIV to be done especially in a patient who has groundglass opacities like this. Continue with broad-spectrum antibiotics. Plan: Follow-up UDS, follow-up procalcitonin, follow-up autoimmune work-up Follow-up 2D echo Continue with broad-spectrum antibiotics. Patient has prolonged QTC keep an eye on it. Repeat chest x-ray in the morning. Bronchoscopy will be beneficial showed in the patient to rule out diffuse alveolar hemorrhage as well as for culture. I did explain the risk and benefits of the procedure today but she was not willing. [facility] if the patient is not willing, will cancel it. If the patient does not want bronchoscopy then I will start the patient on steroids. 60 mg twice daily along with Protonix. >50% time was spent [id number] with the patient discussing diagnosis and plan of care. (2) Abnormal chest CT: (3) Anemia: Anemia type: unspecified type Qualified Code(s): D64.9 - Anemia, unspecified (4) Illicit drug use, continuous: History of Present Illness Attending Physician: Drew Peters MD History of Present Illness 49-year-old female with past medical history of common variable immunodeficiency, gastric bypass, PTSD, borderline personality disorder was admitted to the hospital with acute hypoxic respiratory failure Patient had a CTA chest done in the ED which showed diffuse groundglass opacities bilaterally Pulmonary was consulted for hypoxic respiratory failure and opacities on the CAT scan Patient also had BNP in the 0's. At the time of examination in the room patient is lying in the bed comfortably not in acute distress. States that she is feeling better compared to when she came to the hospital. On asking why she came to the hospital she stated that because of the chest pain. She has been coughing as well bringing up greenish phlegm. Denies any subjective fever or chills. Both patient and her boyfriend who stayed together are on Social Security and does not go out usually. They do meth which is mostly smoking/snorting. As per the patient the last time they did was yesterday which could be prior to presentation. Patient denies any dysuria, no diarrhea. Patient does complain of cough but denies any hemoptysis. No recent travel history. No runny nose, no tearing from the eyes. Social history: Patient is active smoker a pack a day, uses meth mostly snorting Pets: Cats, No Birds at home Allergies Allergy/AdvReac Type Severity Reaction Status Date / Time poison stephen extract Allergy Intermediate Rash and Verified 03/15/20 20:26 blisters cephalexin AdvReac Severe Nausea,vomiting Verified 03/15/20 20:26 and diarrhea Home Medications Home Medications Medication Instructions Recorded Confirmed Type cyanocobalamin (vitamin B-12) 1,000 mcg IM MONTHLY 01/27/19 03/15/20 History ibuprofen [Advil] 400 mg PO Q6H PRN 04/04/19 03/15/20 History naproxen sodium [Aleve] 440 mg PO BID PRN 04/04/19 03/15/20 History acetaminophen [Tylenol Extra 1,000 mg PO Q6H PRN 05/31/19 03/15/20 History Strength] diclofenac sodium 4 g TOPICAL QID PRN 05/31/19 03/15/20 History lidocaine 1 patch TOPICAL DAILY PRN 01/16/20 03/15/20 History tramadol 50 mg PO Q6H PRN #4 tab 01/16/20 03/15/20 Rx baclofen 10 mg PO BID 03/15/20 03/15/20 History diphenhydramine HCl [Benadryl] 50 mg PO HS PRN 03/15/20 03/15/20 History duloxetine 60 mg PO DAILY 03/15/20 03/15/20 History gabapentin 600 mg PO HS PRN 03/15/20 03/15/20 History Patient History Medical History Anxiety Avoidant personality disorder Borderline personality disorder Chronic pain of left lower extremity Depression with anxiety Hidradenitis suppurativa Hirsutism Immunodeficiency disorder Insomnia Low back pain Lymphedema Neuropathy Obesity Peripheral neuropathy Splenic rupture Unspecified asthma Vitamin D deficiency Surgical History H/O gastric bypass H/O: hysterectomy History of shoulder surgery Hx of cholecystectomy Family History Other No significant family history Social History Smoking Status: Current every day smoker Tobacco Type: Cigarettes Cigarettes Per Day: 20; Second Hand Exposure: Yes; Do You Dip or Chew Tobacco: No; Tobacco Cessation Education Requested by Patient: No Hx Alcohol Use: No Hx Substance Use: No Preferred Language: Italian Communication Ability: Effective Visual Impairment: No Limitations Hearing Ability: Normal Tactical Air Control Party Required: No Beliefs That Will Affect Care: None marital status: Single Current Living Situation: Alone Current Living Situation Comment: " I was living with somebody up until this morning." current occupational status: disabled Other Information That Helps Us Care for You: No Feels Safe at Home: Yes Childhood Exposure to Second-Hand Smoke: No caffeine: Yes (coffee 4 cups/day ) during the past year weight has: remained stable Dental Care, Regularly: Yes Physical Activity Frequency: 1-2 Times per Week Seatbelt Use: always Sunscreen Use: Yes Do you think of yourself as: straight/heterosexual Sexual Activity: has never been active Assistive Devices: Oxygen - Continuous Review of Systems Review of Systems: All systems reviewed & are unremarkable except as noted in HPI & below Physical Exam Physical Exam: Constitutional: No acute distress HEENT: EOMI, PERRLA Respiratory system: Decreased air entry bilaterally, no wheeze, no rhonchi, mild crackles appreciated bilaterally CVS: S1-S2 positive, parasternal heave appreciated, no murmur, accentuated P2 Abdomen: Soft, nontender, nondistended, positive bowel sounds x4 Extremities: +2 pulses bilaterally radialis/ dorsalis pedis, no cyanosis, no edema Neuro: Awake alert oriented x3 Psych: Normal mood and affect G/U: No Reed Skin: no rashes, warm and dry Lymphatic: no cervical or axillary lymphadenopathy Results & Data Results & Data ([facility]) Vital Signs (Past 12 Hours) Vital Signs Temp Pulse Resp BP BP Pulse Ox 03/16/20 10:54 36.6 C 79 16 134/91 100 03/16/20 07:24 36.7 C 85 16 115/80 100 03/16/20 04:51 36.8 C 86 16 111/74 97 03/16/20 06:33 03/16/20 06:33 PG Care Time/CCT Total # of Minutes Spent Total Time Spent with Patient: Total time spent is greater than 50% in coordination of care (as documented) at patient's floor/unit and/or counseling patient: Coding Level of Care Code 70123 Inpt Consult Level 5 Diagnoses Acute respiratory failure with hypoxia J96.[address] R93.89 Anemia D64.9 Anemia type: unspecified type Illicit drug use, continuous F19.90 Time Spent (min) 77
[2020-03-16 17:07] LABS: Immature Retic Fraction 10.4 % (3.0-15.9); Reticulated Hemoglobin 15.1 pg (28.2-36.6); Reticulocyte % 1.7 % (0.5-2.0); Reticulocytes # 0.06 10^6/uL (0.02-0.10)
[2020-03-16 17:10] LABS: Ferritin 55.9 ng/ml (8-388)
[2020-03-16] MEDS: FUROSEMIDE 40 MG in SYRINGE 0 ML IV SCH (17:15)
[2020-03-16 18:42] LABS: Amphetamines+Metham, Urine Neg (Neg); Barbiturates, Urine Neg (Neg); Benzodiazepine, Urine Neg (Neg); Cocaine, Urine Neg (Neg); MDMA (Ecstacy), Urine Neg (Neg); Methadone, Urine Neg (Neg); Opiate, Urine Neg (Neg); Phencyclidine, Urine Neg (Neg)
--- NOTE | 2020-03-16 22:22 | Electrocardiogram Report ---
Test Reason : Blood Pressure : / mmHG Vent. Rate : 145 BPM Atrial Rate : 145 BPM P-R Int : 148 ms QRS Dur : 080 ms QT Int : 270 ms P-R-T Axes : 062 080 -07 degrees QTc Int : 419 ms Poor data quality, interpretation may be adversely affected Sinus tachycardia Abnormal ECG When compared with ECG of 21-AUG-2019 19:33, Vent. rate has increased BY [address] now depressed in Anterior leads T wave inversion now evident in Inferior leads T wave inversion more evident in Anterior leads Confirmed by Adolfo Downs ([id number]) on 03/16/2020 10:21:51 PM Referred By: REFERRED SELF Confirmed By:Adolfo Downs
--- NOTE | 2020-03-16 22:30 | Hospitalist Progress Note ---
Date of Service March 16, 2020 Assessment & Plan (1) Acute respiratory failure with hypoxia: Presented with hypoxia- O2 sats as loss as 83% (? on RA). CTA chest negative for PE. SARS-CoV-2 PCR negative. Hypoxia may be due to pneumonia, CHF, or other processes as discussed below. Continue supplemental O2 and wean as able. (2) Abnormal chest CT: CTA chest 03/15/20 IMPRESSION: 1. No pulmonary emboli identified. 2. Mild dilatation of the central pulmonary arteries and right heart chambers with straightening of the interventricular septum. These findings suggest pulmonary arterial hypertension/elevated right heart pressures. 3. Extensive bilateral airspace opacities within the lungs with interlobular septal thickening. These findings are nonspecific. Differential considerations include pulmonary edema, an infectious etiology, ARDS, acute interstitial pneumonia, alveolar proteinosis, and pulmonary venoocclusive disease. These pulmonary findings could potentially account for elevated pulmonary arterial pressures. Pulmonary consultation might be considered. 4. Mild cardiomegaly. Electronically signed by: Bobby Mata M.D. May have infectious or noninfectious pulmonary process. Pulmonary Medicine and Cardiology consulted for their input. (3) Pneumonia: Presented with productive cough and SOB. WBC 4280. Chest x-ray showed interstitial markings and bilateral opacities without lobar consolidation. CT chest as noted above. [employer] respiratory panel negative for SARS-CoV-2, influenza, and other respiratory pathogens tested. Blood cultures obtained and negative so far. Check sputum gram stain, C&S if specimen can be provided. Underlying immunodeficiency (? details). Pulmonary Medicine consulted. Continue doxycycline and ceftriaxone. (4) Chest pain at rest: Presented with chest pain. Admission EKG showed ST at 145 / min, inverted T-waves III, V3, biphasic T-waves V4, no ST elevation. Initial troponin 0.120; troponins subsequently fell. EKG this morning showed NSR at 82/min, slight ST elevation (0.5 - 1 mm) inferiorly, T-wave inversion V3-4. Cardiology consulted. Echo report pending. [place] that troponin elevation most likely due to demand ischemia. Eventual outpatient stress testing recommended after recovery from current illness. (5) Elevated troponin: As noted above. (6) Anemia: Chronic anemia with baseline Hgb ~ 11. Hgb at time of admission 8.7. Hgb today = 7.5. Received IV fluids; may have hemodilution. No gross GI bleeding. Normal bilirubin makes hemolysis unlikely. Fe 12, TIBC 313, transferrin 240, ferritin 55.9; B12 and folate normal. Check stool for OB. Follow. (7) DVT prophylaxis: SCD's. Consider adding chemoprophylaxis once any invasive procedures are completed. Ambulate. (8) Discharge planning issues: Anticipated discharge to home. Family Medicine follow-up with Dr. Caicedo. Admission and Anticipated Discharge Date Admission Date: March 15, 2020 Subjective Recheck for multiple problems. Patient seen in their room around 1130. Admitted last evening with chest pain, cough + SOB. Feels better today. Cough improved, less productive. Less SOB. No further chest pain. No fever. Review of Systems: Constitutional- as noted above. Cardiac- as noted above. Pulmonary- as noted above. GI- no nausea, vomiting, diarrhea, melena, hematochezia. - no urinary symptoms. Otherwise, as noted above. Physical Exam Constitutional: no acute distress Respiratory: no respiratory distress Auscultation: + rales (few) Cardiovascular: Rate/Rhythm: regular rate and regular rhythm Vessels: no JVD Extremities: + edema (chronic lymphedema lower extremities); no calf tenderness Gastrointestinal (Abdomen): normal bowel sounds, soft, nontender, no hepatosplenomegaly Musculoskeletal: Extremities: no cyanosis Skin: no rashes, warm and dry Psychiatric: Orientation: alert and oriented x 3 Results & Data Results & Data ([facility]) Vital Signs (Past 12 Hours) Vital Signs Temp Pulse Resp BP BP Pulse Ox 03/16/20 20:00 37.0 C 88 16 141/69 H 98 03/16/20 15:32 36.5 C 79 16 122/74 98 03/16/20 10:54 36.6 C 79 16 134/91 100 Laboratory Results Laboratory Results - last 24 hr 03/15/20 03/16/20 03/16/20 22:45 06:33 06:33 WBC 4.28 L RBC 3.35 L Hgb 7.5 L Hct 25.2 L MCV 75.2 L MCH 22.4 L MCHC 29.8 L RDW Std Deviation 49.6 H RDW Coeff of Kelli 17.8 H Plt Count 494 H MPV 8.6 Immature Gran % (Auto) 0.2 Neut % (Auto) 60.5 Lymph % (Auto) 26.2 Heard % (Auto) 3.7 Eos % (Auto) 8.9 Baso % (Auto) 0.5 Reticulocyte % (Auto) Neut # (Auto) 2.59 Lymph # (Auto) 1.12 L Heard # (Auto) 0.16 Eos # (Auto) 0.38 Baso # (Auto) 0.02 Reticulocyte # Immature Gran # (Auto) 0.01 Hypochromasia Present Microcytosis Present Target Cells 1+ ESR Immature Retic Fraction Retic Hgb Content Haptoglobin Sodium 140 Potassium 4.6 Chloride 108 H Carbon Dioxide 27 Anion Gap 5.0 BUN 10 Creatinine 0.62 Est Cr Clr Drug Dosing 136.1 Est GFR ( Amer) 123.6 Est GFR (Non-Af Amer) 106.6 BUN/Creatinine Ratio 16.2 Glucose 91 Calcium 8.7 Magnesium 2.1 Iron 13 L TIBC 282 Transferrin Ferritin 54.7 Lactate Dehydrogenase Total Creatine Kinase Troponin I 0.088 H* 0.053 H* C-Reactive Protein Vitamin B12 Folate Procalcitonin Urine Opiates Screen Ur Methadone, Qual Urine Barbiturates Ur Phencyclidine (PCP) U Amphetamin/Meth Scrn MDMA (Ecstasy) Screen U Benzodiazepines Scrn Ur Cocaine Metabolite U Marijuana (THC) Screen Rheumatoid Factor Cycl Citrul Peptide IgG GEORGE Screen Proteinase 3 (PR3) Anti-Neutrophil (Flow) VICKIE-1 Antibody SS-A/Ro Antibody SS-B/La Antibody NONFARM ANIMAL CARETAKER Antibody Scl-70 Scleroderma Ab Double Strand DNA Ab Anti-Centromere Ab Urine Legionella Ag Mycoplasma pneumon IgM Blood Type Antibody Screen 03/16/20 03/16/20 03/16/20 06:33 10:40 15:28 WBC RBC Hgb Hct MCV MCH MCHC RDW Std Deviation RDW Coeff of Kelli Plt Count MPV Immature Gran % (Auto) Neut % (Auto) Lymph % (Auto) Heard % (Auto) Eos % (Auto) Baso % (Auto) Reticulocyte % (Auto) Neut # (Auto) Lymph # (Auto) Heard # (Auto) Eos # (Auto) Baso # (Auto) Reticulocyte # Immature Gran # (Auto) Hypochromasia Microcytosis Target Cells ESR Immature Retic Fraction Retic Hgb Content Haptoglobin Sodium Potassium Chloride Carbon Dioxide Anion Gap BUN Creatinine Est Cr Clr Drug Dosing Est GFR ( Amer) Est GFR (Non-Af Amer) BUN/Creatinine Ratio Glucose Calcium Magnesium Iron TIBC Transferrin Ferritin Lactate Dehydrogenase Total Creatine Kinase Troponin I 0.038 C-Reactive Protein Vitamin B12 1702 H Folate 6.93 Procalcitonin Urine Opiates Screen Ur Methadone, Qual Urine Barbiturates Ur Phencyclidine (PCP) U Amphetamin/Meth Scrn MDMA (Ecstasy) Screen U Benzodiazepines Scrn Ur Cocaine Metabolite U Marijuana (THC) Screen Rheumatoid Factor Pending Cycl Citrul Peptide IgG GEORGE Screen Pending Proteinase 3 (PR3) Pending Anti-Neutrophil (Flow) Pending VICKIE-1 Antibody Pending SS-A/Ro Antibody Pending SS-B/La Antibody Pending NONFARM ANIMAL CARETAKER Antibody Pending Scl-70 Scleroderma Ab Pending Double Strand DNA Ab Anti-Centromere Ab Pending Urine Legionella Ag Mycoplasma pneumon IgM Blood Type Antibody Screen 03/16/20 03/16/20 03/16/20 15:28 15:28 15:28 WBC RBC Hgb Hct MCV MCH MCHC RDW Std Deviation RDW Coeff of Kelli Plt Count MPV Immature Gran % (Auto) Neut % (Auto) Lymph % (Auto) Heard % (Auto) Eos % (Auto) Baso % (Auto) Reticulocyte % (Auto) Neut # (Auto) Lymph # (Auto) Heard # (Auto) Eos # (Auto) Baso # (Auto) Reticulocyte # Immature Gran # (Auto) Hypochromasia Microcytosis Target Cells ESR Immature Retic Fraction Retic Hgb Content Haptoglobin Sodium Potassium Chloride Carbon Dioxide Anion Gap BUN Creatinine Est Cr Clr Drug Dosing Est GFR ( Amer) Est GFR (Non-Af Amer) BUN/Creatinine Ratio Glucose Calcium Magnesium Iron 12 L TIBC 313 Transferrin 240 Ferritin 55.9 Lactate Dehydrogenase Total Creatine Kinase 208 H Troponin I C-Reactive Protein Vitamin B12 Folate Procalcitonin Urine Opiates Screen Ur Methadone, Qual Urine Barbiturates Ur Phencyclidine (PCP) U Amphetamin/Meth Scrn MDMA (Ecstasy) Screen U Benzodiazepines Scrn Ur Cocaine Metabolite U Marijuana (THC) Screen Rheumatoid Factor Cycl Citrul Peptide IgG < 0.40 GEORGE Screen Proteinase 3 (PR3) Anti-Neutrophil (Flow) VICKIE-1 Antibody SS-A/Ro Antibody SS-B/La Antibody NONFARM ANIMAL CARETAKER Antibody Scl-70 Scleroderma Ab Double Strand DNA Ab Cancelled Anti-Centromere Ab Urine Legionella Ag Mycoplasma pneumon IgM Blood Type Antibody Screen 03/16/20 03/16/20 03/16/20 15:28 15:28 15:28 WBC RBC Hgb Hct MCV MCH MCHC RDW Std Deviation RDW Coeff of Kelli Plt Count MPV Immature Gran % (Auto) Neut % (Auto) Lymph % (Auto) Heard % (Auto) Eos % (Auto) Baso % (Auto) Reticulocyte % (Auto) Neut # (Auto) Lymph # (Auto) Heard # (Auto) Eos # (Auto) Baso # (Auto) Reticulocyte # Immature Gran # (Auto) Hypochromasia Microcytosis Target Cells ESR 66 H Immature Retic Fraction Retic Hgb Content Haptoglobin Sodium Potassium Chloride Carbon Dioxide Anion Gap BUN Creatinine Est Cr Clr Drug Dosing Est GFR ( Amer) Est GFR (Non-Af Amer) BUN/Creatinine Ratio Glucose Calcium Magnesium Iron TIBC Transferrin Ferritin Lactate Dehydrogenase 299 H Total Creatine Kinase Troponin I C-Reactive Protein 8.20 H Vitamin B12 Folate Procalcitonin Urine Opiates Screen Ur Methadone, Qual Urine Barbiturates Ur Phencyclidine (PCP) U Amphetamin/Meth Scrn MDMA (Ecstasy) Screen U Benzodiazepines Scrn Ur Cocaine Metabolite U Marijuana (THC) Screen Rheumatoid Factor Cycl Citrul Peptide IgG GEORGE Screen Proteinase 3 (PR3) Anti-Neutrophil (Flow) VICKIE-1 Antibody SS-A/Ro Antibody SS-B/La Antibody NONFARM ANIMAL CARETAKER Antibody Scl-70 Scleroderma Ab Double Strand DNA Ab Anti-Centromere Ab Urine Legionella Ag Mycoplasma pneumon IgM Blood Type Antibody Screen 03/16/20 03/16/20 03/16/20 15:28 15:28 15:28 WBC RBC Hgb Hct MCV MCH MCHC RDW Std Deviation RDW Coeff of Kelli Plt Count MPV Immature Gran % (Auto) Neut % (Auto) Lymph % (Auto) Heard % (Auto) Eos % (Auto) Baso % (Auto) Reticulocyte % (Auto) 1.7 Neut # (Auto) Lymph # (Auto) Heard # (Auto) Eos # (Auto) Baso # (Auto) Reticulocyte # 0.06 Immature Gran # (Auto) Hypochromasia Microcytosis Target Cells ESR Immature Retic Fraction 10.4 Retic Hgb Content 15.1 L Haptoglobin Pending Sodium Potassium Chloride Carbon Dioxide Anion Gap BUN Creatinine Est Cr Clr Drug Dosing Est GFR ( Amer) Est GFR (Non-Af Amer) BUN/Creatinine Ratio Glucose Calcium Magnesium Iron TIBC Transferrin Ferritin Lactate Dehydrogenase Total Creatine Kinase Troponin I C-Reactive Protein Vitamin B12 Folate Procalcitonin < 0.05 Urine Opiates Screen Ur Methadone, Qual Urine Barbiturates Ur Phencyclidine (PCP) U Amphetamin/Meth Scrn MDMA (Ecstasy) Screen U Benzodiazepines Scrn Ur Cocaine Metabolite U Marijuana (THC) Screen Rheumatoid Factor Cycl Citrul Peptide IgG GEORGE Screen Proteinase 3 (PR3) Anti-Neutrophil (Flow) VICKIE-1 Antibody SS-A/Ro Antibody SS-B/La Antibody NONFARM ANIMAL CARETAKER Antibody Scl-70 Scleroderma Ab Double Strand DNA Ab Pending Anti-Centromere Ab Urine Legionella Ag Mycoplasma pneumon IgM Pending Blood Type Antibody Screen 03/16/20 03/16/20 03/16/20 15:28 17:50 17:50 WBC RBC Hgb Hct MCV MCH MCHC RDW Std Deviation RDW Coeff of Kelli Plt Count MPV Immature Gran % (Auto) Neut % (Auto) Lymph % (Auto) Heard % (Auto) Eos % (Auto) Baso % (Auto) Reticulocyte % (Auto) Neut # (Auto) Lymph # (Auto) Heard # (Auto) Eos # (Auto) Baso # (Auto) Reticulocyte # Immature Gran # (Auto) Hypochromasia Microcytosis Target Cells ESR Immature Retic Fraction Retic Hgb Content Haptoglobin Sodium Potassium Chloride Carbon Dioxide Anion Gap BUN Creatinine Est Cr Clr Drug Dosing Est GFR ( Amer) Est GFR (Non-Af Amer) BUN/Creatinine Ratio Glucose Calcium Magnesium Iron TIBC Transferrin Ferritin Lactate Dehydrogenase Total Creatine Kinase Troponin I C-Reactive Protein Vitamin B12 Folate Procalcitonin Urine Opiates Screen Neg Ur Methadone, Qual Neg Urine Barbiturates Neg Ur Phencyclidine (PCP) Neg U Amphetamin/Meth Scrn Neg MDMA (Ecstasy) Screen Neg U Benzodiazepines Scrn Neg Ur Cocaine Metabolite Neg U Marijuana (THC) Screen Neg Rheumatoid Factor Cycl Citrul Peptide IgG GEORGE Screen Proteinase 3 (PR3) Anti-Neutrophil (Flow) VICKIE-1 Antibody SS-A/Ro Antibody SS-B/La Antibody NONFARM ANIMAL CARETAKER Antibody Scl-70 Scleroderma Ab Double Strand DNA Ab Anti-Centromere Ab Urine Legionella Ag Pending Mycoplasma pneumon IgM Blood Type O Positive Antibody Screen NEGATIVE (1) Pneumonia Laterality: bilateral Lung location: unspecified part of lung Pneumonia type: due to unspecified organism Qualified Code(s): J18.9 - Pneumonia, unspecified organism (2) Anemia Anemia type: unspecified type Qualified Code(s): D64.9 - Anemia, unspecified
--- NOTE | 2020-03-17 05:44 | Electrocardiogram Report ---
Test Reason : Blood Pressure : / mmHG Vent. Rate : 082 BPM Atrial Rate : 082 BPM P-R Int : 134 ms QRS Dur : 086 ms QT Int : 388 ms P-R-T Axes : 044 071 064 degrees QTc Int : 453 ms Normal sinus rhythm Cannot rule out Anterior infarct , age undetermined Nonspecific T wave abnormality Abnormal ECG When compared with ECG of 15-MAR-2020 16:43, Vent. rate has decreased BY [address] no longer depressed in Anterolateral leads T wave inversion no longer evident in Inferior leads Confirmed by Adolfo Downs ([id number]) on 03/17/2020 5:44:08 AM Referred By: REFERRED SELF Confirmed By:Adolfo Downs
[2020-03-17 07:32] LABS: Basophils # (auto) 0.01 K/uL (0-0.2); Basophils % (auto) 0.4 %; Eosinophils # (auto) 0.13 K/uL (0-0.5); Eosinophils % (auto) 5.3 %; Hematocrit (blood only) 31.8 % (37-47); Hemoglobin 8.9 g/dL (12.0-16.0); Lymphocytes # (auto) 0.48 K/uL (1.2-3.4); Lymphocytes % (auto) 19.6 %; Mean Platelet Volume 8.7 fL (7.4-10.4); Monocytes # (auto) 0.15 K/uL (0.11-0.59); Monocytes % (auto) 6.1 %; Neutrophils # (auto) 1.68 K/uL (1.4-6.5); Neutrophils % (auto) 68.6 %; Platelet Count 602 K/uL (130-400); RDW Coefficient of Variation 17.8 % (11.5-14.5); RDW Standard Deviation 48.9 fL (36.4-46.3); Red Blood Count 4.24 M/uL (4.2-5.4); White Blood Count 2.45 K/uL (4.8-10.8)
--- NOTE | 2020-03-17 08:01 | XRay Report ---
XR chest 1V portable CLINICAL HISTORY: f/u COMPARISON STUDY: Chest CT and chest radiograph March 15, 2020. FINDINGS: Interstitial thickening and bilateral opacities, slightly greater on the left, have improve d since prior exam. There is no pneumothorax. There is slight blunting of the left costophrenic angle . Cardiomediastinal silhouette is stable. IMPRESSION: Interval improvement in interstitial thickening and bilateral opacities. ACT 112: Negative or not required by law. Electronically signed by: Bobby Mata M.D. 03/17/2020 7:59 AM
[2020-03-17 08:06] LABS: BUN Creatinine Ratio 19.9 (10-20); Calcium 9.5 mg/dl (8.5-10.1); Est GFR (African American) 134.4; Potassium 3.9 mmol/L (3.5-5.1)
--- NOTE | 2020-03-17 08:32 | Pulmonology Progress Note ---
Date of Service March 17, 2020 Assessment & Plan (1) Acute respiratory failure with hypoxia: CT chest 03/15/2020 personally reviewed: Patient has diffuse groundglass opacities appreciated bilaterally with may be peripheral sparing especially in the upper lobes there is interlobular thickening appreciated as well going up to the apex. Insignificant mediastinal lymphadenopathy I looked at previous CT scan of chest which didn't show similar findings. --Acute hypoxic respiratory failure With diffuse groundglass opacity and peripheral sparing along with interlobular thickening BNP 7095, influenza as well as parainfluenza negative, Covid-19 negative on presentation to the ED ESR: 66, CRP 8.2, LDH 299, CK 208, procalcitonin negative Follow-up mycoplasma and Legionella Patient does have lymphopenia, she had lymphopenia in the past as well once. Autoimmune work-up: Anti-CCP negative Patient's baseline Hb is around 11. In a patient who is a drug abuser presenting with diffuse groundglass opacities as above pulmonary edema could present this way --> I would rather have the p atient get Lasix to diurese her to see if that would help her. Even though patient has no hemoptysis, diffuse alveolar hemorrhage is also a possibility. The drop in hemoglobin could be because patient got approximately 2.5 L since coming to the hospital. I do not think there is hemolysis given that T bili was 0.6 at the time of presentation. Interstitial lung disease/NSIP-like pattern can present this way and has large differential which includes but not limited to DAH, RB ILD, lupus, HP --> autoimmune work-up has been ordered will follow it up I would recommend an HIV to be done especially in a patient who has groundglass opacities like this. Plan: Chest x-ray from today shows significant improvement in bilateral infiltrates. A component of it is because of the Lasix given yesterday on top of antibiotics. UDS is negative. Follow-up 2D echo Given the significant improvement in the chest x-ray in 1 day. I do not think diffuse alveolar hemorrhage is 1 of the etiologies here. Follow-up autoimmune work-up. Patient is refusing bronchoscopy. With the improvement in the chest x-ray I do not think bronchoscopy will add much. Will hold off on prednisone for the time being. Continue with antibiotics For the anemia that the patient has along with decreased RBC count. Patient's reticulocyte count is actually low, this likely means bone marrow suppression. Parvovirus could be thought off. Patient might need bone marrow biopsy for her unusual thrombocytosis and decrease in erythrocytes. Hematology evaluation would be helpful Recommend hepatitis profile. >50% time was spent [id number] with the patient discussing diagnosis and plan of care. (2) Abnormal chest CT: (3) Anemia: Anemia type: unspecified type Qualified Code(s): D64.9 - Anemia, unspecified (4) Illicit drug use, continuous: Admission and Anticipated Discharge Date Admission Date: March 15, 2020 Subjective Patient seen and examined at bedside. No acute distress, no adverse events overnight. Says that shortness of breath is significantly improved. Denies any chest pain. No significant cough. No dysuria. Urinating well. No fever or chills. Denies any headache or blurry vision. Review of Systems Review of Systems: All systems reviewed & are unremarkable except as noted in Subjective Physical Exam Physical Exam: Constitutional: No acute distress HEENT: EOMI, PERRLA Respiratory system: Decreased air entry bilaterally, no wheeze, no rhonchi, minimal crackles bilateral lower lobes CVS: S1-S2 positive, parasternal heave appreciated, no murmur, accentuated P2 Abdomen: Soft, nontender, nondistended, positive bowel sounds x4 Extremities: +2 pulses bilaterally radialis/ dorsalis pedis, no cyanosis, no edema Neuro: Awake alert oriented x3 Psych: Normal mood and affect G/U: No Reed Skin: no rashes, warm and dry Lymphatic: no cervical or axillary lymphadenopathy Results & Data Results & Data ([facility]) Vital Signs (Past 12 Hours) Vital Signs Temp Pulse Resp BP Pulse Ox 03/17/20 07:32 36.8 C 87 18 147/85 H 94 03/17/20 03:39 36.7 C 97 H 16 162/98 H 99 03/17/20 00:05 36.6 C 87 18 140/91 99 03/17/20 06:55 03/17/20 06:55 PG Care Time/CCT Total # of Minutes Spent Total Time Spent with Patient: Total time spent is greater than 50% in coordination of care (as documented) at patient's floor/unit and/or counseling patient: Coding Level of Care Code 27408 Subseq Hosp Care Lvl 3 Diagnoses Acute respiratory failure with hypoxia J96.[address] R93.89 Anemia D64.9 Anemia type: unspecified type Illicit drug use, continuous F19.90
[2020-03-17] MEDS: MICONAZOLE NITRATE POWDER 43 GM EXT SCH ×3 (08:47→21:32)
[2020-03-17] MEDS: FUROSEMIDE 40 MG in SYRINGE 0 ML IV SCH (08:47)
[2020-03-17] MEDS: DULOXETINE HCL 60 MG CAP PO SCH (08:47)
[2020-03-17] MEDS: cefTRIAXone SODIUM 2,000 MG in DEXTROSE 5% 50 ML IV SCH (08:47)
[2020-03-17] MEDS: BACLOFEN 10 MG TAB PO SCH ×2 (08:47→21:32)
--- NOTE | 2020-03-17 09:20 | Cardiology Progress Note ---
Date of Service March 17, 2020 Assessment & Plan (1) Chest pain at rest: (2) Elevated troponin: (3) Illicit drug use, continuous: Chest pain at rest, elevated troponin, demand based ischemia in the setting of acute respiratory failure, significant anemia, ililcit drug use. She remains chest pain-free. Resting echocardiogram is currently pending interpretation. Recommend conservative inpatient management. She declines stress testing. Recommend risk factor and lifestyle modification. Recommend Psychiatry Consultation Admission and Anticipated Discharge Date Admission Date: March 15, 2020 Supervising Physician Co-Signing Physician Notes I have discussed the case with Mr. Gavin, reviewed the medical record and examined the patient. I agree with the plan as outlined. Subjective Patient seen and examined. Chart, medications, and telemetry reviewed. Continuous telemetry monitoring reveals sinus rhythm typically in the 80s and 90s. Fourth troponin has normalized at 0.038 Resting echocardiogram is pending interpretation Patient notes feeling considerably better today in regards to cough, chest congestion, and dyspnea. She has not had any further chest pain. Patient notes breaking up with her boyfriend of 5 years earlier this week. Two days prior to admission she admits to using meth. Review of Systems Review of Systems: All systems reviewed & are unremarkable except as noted in HPI & below Physical Exam Physical Exam: General: A&Ox3. NAD. HEENT: Normocephalic. Atraumatic. PER. Conjunctiva pink, sclera clear. Neck: No JVD. No HJR. Heart: RRR. No murmur. Lungs: Clear to auscultation. Abdomen: +BS. Soft. Nontender. No masses or organomegaly. Extremities: No clubbing, cyanosis, or edema. Limited neurological examination is without focal deficits. Results & Data ([facility]) Vital Signs (Past 12 Hours) Vital Signs Temp Pulse Resp BP Pulse Ox 03/17/20 07:32 36.8 C 87 18 147/85 H 94 03/17/20 03:39 36.7 C 97 H 16 162/98 H 99 03/17/20 00:05 36.6 C 87 18 140/91 99 Laboratory Results Laboratory Results - last 24 hr 03/16/20 03/16/20 03/16/20 06:33 10:40 15:28 WBC RBC Hgb Hct MCV MCH MCHC RDW Std Deviation RDW Coeff of Kelli Plt Count MPV Immature Gran % (Auto) Neut % (Auto) Lymph % (Auto) [place] % (Auto) Eos % (Auto) Baso % (Auto) Reticulocyte % (Auto) Neut # (Auto) Lymph # (Auto) [place] # (Auto) Eos # (Auto) Baso # (Auto) Reticulocyte # Immature Gran # (Auto) ESR Immature Retic Fraction Retic Hgb Content Haptoglobin Sodium Potassium Chloride Carbon Dioxide Anion Gap BUN Creatinine Est Cr Clr Drug Dosing Est GFR ( Amer) Est GFR (Non-Af Amer) BUN/Creatinine Ratio Glucose Calcium Iron TIBC Transferrin Ferritin Lactate Dehydrogenase Total Creatine Kinase Troponin I 0.038 C-Reactive Protein Triglycerides Cholesterol LDL Cholesterol, Calc VLDL Cholesterol, Calc HDL Cholesterol Cholesterol/HDL Ratio Vitamin B12 1702 H Folate 6.93 Procalcitonin Urine Opiates Screen Ur Methadone, Qual Urine Barbiturates Ur Phencyclidine (PCP) U Amphetamin/Meth Scrn MDMA (Ecstasy) Screen U Benzodiazepines Scrn Ur Cocaine Metabolite U Marijuana (THC) Screen Rheumatoid Factor Pending Cycl Citrul Peptide IgG GEORGE Screen Pending Proteinase 3 (PR3) Pending Anti-Neutrophil (Flow) Pending VICKIE-1 Antibody Pending SS-A/Ro Antibody Pending SS-B/La Antibody Pending DATA COMMUNICATIONS TECHNICIAN Antibody Pending Scl-70 Scleroderma Ab Pending Double Strand DNA Ab Anti-Centromere Ab Pending Urine Legionella Ag Mycoplasma pneumon IgM Blood Type Antibody Screen 03/16/20 03/16/20 03/16/20 15:28 15:28 15:28 WBC RBC Hgb Hct MCV MCH MCHC RDW Std Deviation RDW Coeff of Kelli Plt Count MPV Immature Gran % (Auto) Neut % (Auto) Lymph % (Auto) [place] % (Auto) Eos % (Auto) Baso % (Auto) Reticulocyte % (Auto) Neut # (Auto) Lymph # (Auto) [place] # (Auto) Eos # (Auto) Baso # (Auto) Reticulocyte # Immature Gran # (Auto) ESR Immature Retic Fraction Retic Hgb Content Haptoglobin Sodium Potassium Chloride Carbon Dioxide Anion Gap BUN Creatinine Est Cr Clr Drug Dosing Est GFR ( Amer) Est GFR (Non-Af Amer) BUN/Creatinine Ratio Glucose Calcium Iron 12 L TIBC 313 Transferrin 240 Ferritin 55.9 Lactate Dehydrogenase Total Creatine Kinase 208 H Troponin I C-Reactive Protein Triglycerides Cholesterol LDL Cholesterol, Calc VLDL Cholesterol, Calc HDL Cholesterol Cholesterol/HDL Ratio Vitamin B12 Folate Procalcitonin Urine Opiates Screen Ur Methadone, Qual Urine Barbiturates Ur Phencyclidine (PCP) U Amphetamin/Meth Scrn MDMA (Ecstasy) Screen U Benzodiazepines Scrn Ur Cocaine Metabolite U Marijuana (THC) Screen Rheumatoid Factor Cycl Citrul Peptide IgG < 0.40 GEORGE Screen Proteinase 3 (PR3) Anti-Neutrophil (Flow) VICKIE-1 Antibody SS-A/Ro Antibody SS-B/La Antibody DATA COMMUNICATIONS TECHNICIAN Antibody Scl-70 Scleroderma Ab Double Strand DNA Ab Cancelled Anti-Centromere Ab Urine Legionella Ag Mycoplasma pneumon IgM Blood Type Antibody Screen 03/16/20 03/16/20 03/16/20 15:28 15:28 15:28 WBC RBC Hgb Hct MCV MCH MCHC RDW Std Deviation RDW Coeff of Kelli Plt Count MPV Immature Gran % (Auto) Neut % (Auto) Lymph % (Auto) [place] % (Auto) Eos % (Auto) Baso % (Auto) Reticulocyte % (Auto) Neut # (Auto) Lymph # (Auto) [place] # (Auto) Eos # (Auto) Baso # (Auto) Reticulocyte # Immature Gran # (Auto) ESR 66 H Immature Retic Fraction Retic Hgb Content Haptoglobin Sodium Potassium Chloride Carbon Dioxide Anion Gap BUN Creatinine Est Cr Clr Drug Dosing Est GFR ( Amer) Est GFR (Non-Af Amer) BUN/Creatinine Ratio Glucose Calcium Iron TIBC Transferrin Ferritin Lactate Dehydrogenase 299 H Total Creatine Kinase Troponin I C-Reactive Protein 8.20 H Triglycerides Cholesterol LDL Cholesterol, Calc VLDL Cholesterol, Calc HDL Cholesterol Cholesterol/HDL Ratio Vitamin B12 Folate Procalcitonin Urine Opiates Screen Ur Methadone, Qual Urine Barbiturates Ur Phencyclidine (PCP) U Amphetamin/Meth Scrn MDMA (Ecstasy) Screen U Benzodiazepines Scrn Ur Cocaine Metabolite U Marijuana (THC) Screen Rheumatoid Factor Cycl Citrul Peptide IgG GEORGE Screen Proteinase 3 (PR3) Anti-Neutrophil (Flow) VICKIE-1 Antibody SS-A/Ro Antibody SS-B/La Antibody DATA COMMUNICATIONS TECHNICIAN Antibody Scl-70 Scleroderma Ab Double Strand DNA Ab Anti-Centromere Ab Urine Legionella Ag Mycoplasma pneumon IgM Blood Type Antibody Screen 03/16/20 03/16/20 03/16/20 15:28 15:28 15:28 WBC RBC Hgb Hct MCV MCH MCHC RDW Std Deviation RDW Coeff of Kelli Plt Count MPV Immature Gran % (Auto) Neut % (Auto) Lymph % (Auto) [place] % (Auto) Eos % (Auto) Baso % (Auto) Reticulocyte % (Auto) 1.7 Neut # (Auto) Lymph # (Auto) [place] # (Auto) Eos # (Auto) Baso # (Auto) Reticulocyte # 0.06 Immature Gran # (Auto) ESR Immature Retic Fraction 10.4 Retic Hgb Content 15.1 L Haptoglobin Pending Sodium Potassium Chloride Carbon Dioxide Anion Gap BUN Creatinine Est Cr Clr Drug Dosing Est GFR ( Amer) Est GFR (Non-Af Amer) BUN/Creatinine Ratio Glucose Calcium Iron TIBC Transferrin Ferritin Lactate Dehydrogenase Total Creatine Kinase Troponin I C-Reactive Protein Triglycerides Cholesterol LDL Cholesterol, Calc VLDL Cholesterol, Calc HDL Cholesterol Cholesterol/HDL Ratio Vitamin B12 Folate Procalcitonin < 0.05 Urine Opiates Screen Ur Methadone, Qual Urine Barbiturates Ur Phencyclidine (PCP) U Amphetamin/Meth Scrn MDMA (Ecstasy) Screen U Benzodiazepines Scrn Ur Cocaine Metabolite U Marijuana (THC) Screen Rheumatoid Factor Cycl Citrul Peptide IgG GEORGE Screen Proteinase 3 (PR3) Anti-Neutrophil (Flow) VICKIE-1 Antibody SS-A/Ro Antibody SS-B/La Antibody DATA COMMUNICATIONS TECHNICIAN Antibody Scl-70 Scleroderma Ab Double Strand DNA Ab Pending Anti-Centromere Ab Urine Legionella Ag Mycoplasma pneumon IgM Pending Blood Type Antibody Screen 03/16/20 03/16/20 03/16/20 15:28 17:50 17:50 WBC RBC Hgb Hct MCV MCH MCHC RDW Std Deviation RDW Coeff of Kelli Plt Count MPV Immature Gran % (Auto) Neut % (Auto) Lymph % (Auto) [place] % (Auto) Eos % (Auto) Baso % (Auto) Reticulocyte % (Auto) Neut # (Auto) Lymph # (Auto) [place] # (Auto) Eos # (Auto) Baso # (Auto) Reticulocyte # Immature Gran # (Auto) ESR Immature Retic Fraction Retic Hgb Content Haptoglobin Sodium Potassium Chloride Carbon Dioxide Anion Gap BUN Creatinine Est Cr Clr Drug Dosing Est GFR ( Amer) Est GFR (Non-Af Amer) BUN/Creatinine Ratio Glucose Calcium Iron TIBC Transferrin Ferritin Lactate Dehydrogenase Total Creatine Kinase Troponin I C-Reactive Protein Triglycerides Cholesterol LDL Cholesterol, Calc VLDL Cholesterol, Calc HDL Cholesterol Cholesterol/HDL Ratio Vitamin B12 Folate Procalcitonin Urine Opiates Screen Neg Ur Methadone, Qual Neg Urine Barbiturates Neg Ur Phencyclidine (PCP) Neg U Amphetamin/Meth Scrn Neg MDMA (Ecstasy) Screen Neg U Benzodiazepines Scrn Neg Ur Cocaine Metabolite Neg U Marijuana (THC) Screen Neg Rheumatoid Factor Cycl Citrul Peptide IgG GEORGE Screen Proteinase 3 (PR3) Anti-Neutrophil (Flow) VICKIE-1 Antibody SS-A/Ro Antibody SS-B/La Antibody DATA COMMUNICATIONS TECHNICIAN Antibody Scl-70 Scleroderma Ab Double Strand DNA Ab Anti-Centromere Ab Urine Legionella Ag Pending Mycoplasma pneumon IgM Blood Type O Positive Antibody Screen NEGATIVE 03/17/20 03/17/20 06:55 06:55 WBC 2.45 L RBC 4.24 Hgb 8.9 L Hct 31.8 L MCV 75.0 L MCH 21.0 L MCHC 28.0 L RDW Std Deviation 48.9 H RDW Coeff of Kelli 17.8 H Plt Count 602 H MPV 8.7 Immature Gran % (Auto) 0.0 Neut % (Auto) 68.6 Lymph % (Auto) 19.6 [place] % (Auto) 6.1 Eos % (Auto) 5.3 Baso % (Auto) 0.4 Reticulocyte % (Auto) Neut # (Auto) 1.68 Lymph # (Auto) 0.48 L [place] # (Auto) 0.15 Eos # (Auto) 0.13 Baso # (Auto) 0.01 Reticulocyte # Immature Gran # (Auto) 0.00 ESR Immature Retic Fraction Retic Hgb Content Haptoglobin Sodium 141 Potassium 3.9 D Chloride 106 Carbon Dioxide 25 Anion Gap 11.0 BUN 10 Creatinine 0.48 L Est Cr Clr Drug Dosing 176.0 Est GFR ( Amer) 134.4 Est GFR (Non-Af Amer) 116.0 BUN/Creatinine Ratio 19.9 Glucose 89 Calcium 9.5 Iron TIBC Transferrin Ferritin Lactate Dehydrogenase Total Creatine Kinase Troponin I C-Reactive Protein Triglycerides 108 Cholesterol 149 LDL Cholesterol, Calc 104 VLDL Cholesterol, Calc 22 HDL Cholesterol 23 Cholesterol/HDL Ratio 7 Vitamin B12 Folate Procalcitonin Urine Opiates Screen Ur Methadone, Qual Urine Barbiturates Ur Phencyclidine (PCP) U Amphetamin/Meth Scrn MDMA (Ecstasy) Screen U Benzodiazepines Scrn Ur Cocaine Metabolite U Marijuana (THC) Screen Rheumatoid Factor Cycl Citrul Peptide IgG GEORGE Screen Proteinase 3 (PR3) Anti-Neutrophil (Flow) VICKIE-1 Antibody SS-A/Ro Antibody SS-B/La Antibody DATA COMMUNICATIONS TECHNICIAN Antibody Scl-70 Scleroderma Ab Double Strand DNA Ab Anti-Centromere Ab Urine Legionella Ag Mycoplasma pneumon IgM Blood Type Antibody Screen
[2020-03-17] MEDS: DOXYCYCLINE HYCLATE 100 MG in DEXTROSE 5% 100 ML IV SCH ×2 (12:20→22:21)
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
--- NOTE | 2020-03-17 22:36 | Electrocardiogram Report ---
Test Reason : Blood Pressure : / mmHG Vent. Rate : 079 BPM Atrial Rate : 079 BPM P-R Int : 136 ms QRS Dur : 086 ms QT Int : 410 ms P-R-T Axes : 088 089 081 degrees QTc Int : 470 ms Normal sinus rhythm Cannot rule out Anterior infarct (cited on or before 16-MAR-2020) Abnormal ECG When compared with ECG of 16-MAR-2020 06:39, Nonspecific T wave abnormality no longer evident in Lateral leads Confirmed by Adolfo Downs ([id number]) on 03/17/2020 10:36:22 PM Referred By: REFERRED SELF Confirmed By:Adolfo Downs
--- NOTE | 2020-03-17 23:05 | Hospitalist Progress Note ---
Date of Service March 17, 2020 Assessment & Plan (1) Acute respiratory failure with hypoxia: Presented with hypoxia- O2 sats as loss as 83% (? on RA). CTA chest negative for PE. SARS-CoV-2 PCR negative. Hypoxia may be due to pneumonia, CHF, or other processes as discussed below. Received supplemental O2. Now oxygenating well on RA. (2) Abnormal chest CT: CTA chest 03/15/20 IMPRESSION: 1. No pulmonary emboli identified. 2. Mild dilatation of the central pulmonary arteries and right heart chambers with straightening of the interventricular septum. These findings suggest pulmonary arterial hypertension/elevated right heart pressures. 3. Extensive bilateral airspace opacities within the lungs with interlobular septal thickening. These findings are nonspecific. Differential considerations include pulmonary edema, an infectious etiology, ARDS, acute interstitial pneumonia, alveolar proteinosis, and pulmonary venoocclusive disease. These pulmonary findings could potentially account for elevated pulmonary arterial pressures. Pulmonary consultation might be considered. 4. Mild cardiomegaly. Electronically signed by: Bobby Mata M.D. May have infectious or noninfectious pulmonary process. Pulmonary Medicine and Cardiology consulted for their input. Bronchoscopy recommended, patient declined. (3) Pneumonia: Presented with productive cough and SOB. WBC 4280. Chest x-ray showed interstitial markings and bilateral opacities without lobar consolidation. CT chest as noted above. [employer] respiratory panel negative for SARS-CoV-2, influenza, and other respirat ory pathogens tested. Blood cultures obtained and negative so far. Check sputum gram stain, C&S if specimen can be provided. Underlying immunodeficiency (? details). Pulmonary Medicine consulted. Continue doxycycline and ceftriaxone. (4) Chest pain at rest: Presented with chest pain. Admission EKG showed ST at 145 / min, inverted T-waves III, V3, biphasic T-waves V4, no ST elevation. Initial troponin 0.120; troponins subsequently fell. EKG this morning showed NSR at 82/min, slight ST elevation (0.5 - 1 mm) inferiorly, T-wave inversion V3-4. Cardiology consulted. Echo report pending. [place] that troponin elevation most likely due to demand ischemia. Eventual outpatient stress testing recommended after recovery from current illness. (5) Elevated troponin: As noted above. (6) Anemia: Chronic anemia with baseline Hgb ~ 11. Hgb at time of admission 8.7 and fell to 7.5. Received IV fluids; may have hemodilution. No gross GI bleeding. Normal bilirubin makes hemolysis unlikely. Fe 12, TIBC 313, transferrin 240, ferritin 55.9; B12 and folate normal. Retic count low. Check stool for OB. Hgb today = 8.9. Follow. Outpatient Hematology consultation recommended. (7) DVT prophylaxis: SCD's. Consider adding chemoprophylaxis once any invasive procedures are completed. Ambulate. (8) Discharge planning issues: Anticipated discharge to home. Family Medicine follow-up with Dr. Caicedo. Admission and Anticipated Discharge Date Admission Date: March 15, 2020 Subjective Recheck for multiple problems. Patient seen in their room around 1620. Feels better today. Cough improved. Less SOB. No further chest pain. No fever. Review of Systems: Constitutional- as noted above. Cardiac- as noted above. Pulmonary- as noted above. GI- no nausea, vomiting, diarrhea, melena, hematochezia. - no urinary symptoms. Otherwise, as noted above. Physical Exam Constitutional: no acute distress Respiratory: no respiratory distress Auscultation: + rales (few) Cardiovascular: Rate/Rhythm: regular rate and regular rhythm Vessels: no JVD Extremities: + edema (chronic lymphedema lower extremities); no calf tenderness Gastrointestinal (Abdomen): normal bowel sounds, soft, nontender, no hepatosplenomegaly Musculoskeletal: Extremities: no cyanosis Skin: no rashes, warm and dry Psychiatric: Orientation: alert and oriented x 3 Results & Data Results & Data ([facility]) Vital Signs (Past 12 Hours) Vital Signs Temp Pulse Resp BP BP Pulse Ox 03/17/20 19:00 36.9 C 78 18 168/89 H 96 03/17/20 15:15 36.9 C 98 H 14 153/97 H 97 03/17/20 12:05 36.6 C 90 18 148/91 H 100 Laboratory Results Laboratory Results - last 24 hr 03/17/20 03/17/20 06:55 06:55 WBC 2.45 L RBC 4.24 Hgb 8.9 L Hct 31.8 L MCV 75.0 L MCH 21.0 L MCHC 28.0 L RDW Std Deviation 48.9 H RDW Coeff of Kelli 17.8 H Plt Count 602 H MPV 8.7 Immature Gran % (Auto) 0.0 Neut % (Auto) 68.6 Lymph % (Auto) 19.6 [place] % (Auto) 6.1 Eos % (Auto) 5.3 Baso % (Auto) 0.4 Neut # (Auto) 1.68 Lymph # (Auto) 0.48 L [place] # (Auto) 0.15 Eos # (Auto) 0.13 Baso # (Auto) 0.01 Immature Gran # (Auto) 0.00 Sodium 141 Potassium 3.9 D Chloride 106 Carbon Dioxide 25 Anion Gap 11.0 BUN 10 Creatinine 0.48 L Est Cr Clr Drug Dosing 176.0 Est GFR ( Amer) 134.4 Est GFR (Non-Af Amer) 116.0 BUN/Creatinine Ratio 19.9 Glucose 89 Calcium 9.5 Triglycerides 108 Cholesterol 149 LDL Cholesterol, Calc 104 VLDL Cholesterol, Calc 22 HDL Cholesterol 23 Cholesterol/HDL Ratio 7 (1) Pneumonia Laterality: bilateral Lung location: unspecified part of lung Pneumonia type: due to unspecified organism Qualified Code(s): J18.9 - Pneumonia, unspecified organism (2) Anemia Anemia type: unspecified type Qualified Code(s): D64.9 - Anemia, unspecified
[2020-03-18 07:11] LABS: Hematocrit (blood only) 30.3 % (37-47); Hemoglobin 8.8 g/dL (12.0-16.0); Mean Corpuscular Hemoglobin 21.6 pg (25-34); Mean Corpuscular Volume 74.3 fL (80-100); Mean Platelet Volume 8.7 fL (7.4-10.4); Nucleated RBC # (auto) 0.02 K/uL (0-0); Nucleated RBC % (auto) 0.7 %; Platelet Count 589 K/uL (130-400); RDW Coefficient of Variation 17.7 % (11.5-14.5); RDW Standard Deviation 48.5 fL (36.4-46.3); Red Blood Count 4.08 M/uL (4.2-5.4); White Blood Count 2.53 K/uL (4.8-10.8)
[2020-03-18 07:39] LABS: Calcium 8.8 mg/dl (8.5-10.1); Creatinine Clr Calc Pharmacy 185.3 ml/min; Est GFR (African American) 137.3; Est GFR (Non-African American) 118.5; Potassium 3.4 mmol/L (3.5-5.1)
[2020-03-18] MEDS ORDERED: lisinopriL 20 MG TAB PO STA (09:37)
[2020-03-18] MEDS: DULOXETINE HCL 60 MG CAP PO SCH (09:40)
[2020-03-18] MEDS: BACLOFEN 10 MG TAB PO SCH ×2 (09:40→20:56)
[2020-03-18] MEDS: FUROSEMIDE 40 MG in SYRINGE 0 ML IV SCH (09:40)
[2020-03-18] MEDS: MICONAZOLE NITRATE POWDER 43 GM EXT SCH ×3 (09:40→20:56)
[2020-03-18] MEDS: cefTRIAXone SODIUM 2,000 MG in DEXTROSE 5% 50 ML IV SCH (09:43)
[2020-03-18] MEDS ORDERED: POTASSIUM CHLORIDE 20 MEQ TABCR PO STA (09:44)
--- NOTE | 2020-03-18 09:53 | Pulmonology Progress Note ---
Date of Service March 18, 2020 Assessment & Plan (1) Acute respiratory failure with hypoxia: CT chest 03/15/2020 personally reviewed: Patient has diffuse groundglass opacities appreciated bilaterally with may be peripheral sparing especially in the upper lobes there is interlobular thickening appreciated as well going up to the apex. Insignificant mediastinal lymphadenopathy I looked at previous CT scan of chest which didn't show similar findings. --Acute hypoxic respiratory failure With diffuse groundglass opacity and peripheral sparing along with interlobular thickening BNP 7095, influenza as well as parainfluenza negative, Covid-19 negative on presentation to the ED ESR: 66, CRP 8.2, LDH 299, CK 208, procalcitonin negative Follow-up mycoplasma and Legionella HIV negative Patient does have lymphopenia, she had lymphopenia in the past as well once. Autoimmune work-up: Anti-CCP negative Patient's baseline Hb is around 11. In a patient who is a drug abuser presenting with diffuse groundglass opacities as above pulmonary edema could present this way --> I would rather have the patient get Lasix to diurese her to see if that would help her. Interstitial lung disease/NSIP-like pattern can present this way and has large differential which includes but not limited to DAH, RB ILD, lupus, HP (unlikely now given significant improvement the next day on CXR) --> autoimmune work-up has been ordered will follow it up Plan: 2D echo shows good ejection fraction but normal right ventricular function and normal RVSP. The most likely cause of her acute hypoxic respiratory failure was ''negative pressure pulmonary edema'' from her underlying drug use which she said she did 24 hours prior to presentation. Her blood pressure is also been on the higher side since she has been in the hospital. I will start the patient on 20 mg of lisinopril and deferred the management to primary care to increase the dose as needed. Discontinue Lasix after today's dose. Follow-up autoimmune work-up. I doubt that it will be leading us to anything. Recommend repeat CT chest in 6 to 8 weeks after discharge to make sure that the infiltrate that she had,have resolved. Case was discussed with Dr Peters and RN bedside. No further recommendations from pulmonary perspective. Will sign off. Please recall if needed. Please note the above document was generated using voice recognition software. It may contain grammatical, syntax or spelling errors.Any formal questions or concerns about the content, text or information contained within the body of this dictation should be directly addressed to the provider for clarification. (2) Abnormal chest CT: (3) Anemia: Anemia type: unspecified type Qualified Code(s): D64.9 - Anemia, unspecified (4) Illicit drug use, continuous: Admission and Anticipated Discharge Date Admission Date: March 15, 2020 Subjective Patient seen and examined at bedside. No acute distress, no adverse events overnight. Patient states that she is feeling much better. Denies any cough. No chest pain. Urinating well. Denies any abdominal pain. Patient is saturating well on room air. Review of Systems Review of Systems: All systems reviewed & are unremarkable except as noted in Subjective Physical Exam Physical Exam: Constitutional: No acute distress HEENT: EOMI, PERRLA Respiratory system: Decreased air entry bilaterally, no wheeze, no rhonchi, minimal crackles bilateral lower lobes CVS: S1-S2 positive, parasternal heave appreciated, no murmur, accentuated P2 Abdomen: Soft, nontender, nondistended, positive bowel sounds x4 Extremities: +2 pulses bilaterally radialis/ dorsalis pedis, no cyanosis, no edema Neuro: Awake alert oriented x3 Psych: Normal mood and affect G/U: No Reed Skin: no rashes, warm and dry Lymphatic: no cervical or axillary lymphadenopathy Results & Data Results & Data ([facility]) Vital Signs (Past 12 Hours) Vital Signs Temp Pulse Resp BP BP Pulse Ox 03/18/20 07:38 36.8 C 90 19 155/99 H 96 03/18/20 05:00 36.9 C 90 18 166/101 H 96 03/17/20 23:58 36.8 C 85 15 165/105 H 163/91 H 97 03/18/20 06:45 03/18/20 06:45 PG Care Time/CCT Total # of Minutes Spent Total Time Spent with Patient: Total time spent is greater than 50% in coordination of care (as documented) at patient's floor/unit and/or counseling patient: Coding Level of Care Code 91538 Subseq Hosp Care Lvl 3 Diagnoses Acute respiratory failure with hypoxia J96.[address] R93.89 Anemia D64.9 Anemia type: unspecified type Illicit drug use, continuous F19.90
[2020-03-18] MEDS: DOXYCYCLINE HYCLATE 100 MG in DEXTROSE 5% 100 ML IV SCH (10:24)
--- NOTE | 2020-03-18 12:58 | CT Scan Report ---
HEAD CT NONCONTRAST CT DOSE: 614.27 mGy.cm HISTORY: head injury, confusion TECHNIQUE: Multiaxial CT images of the head were performed without the use of intravenous contrast. A utomated exposure control was utilized for this study. A dose lowering technique was utilized adheri ng to the principles of ALARA. Comparison: Head CT 07/29/2018. Findings: The paranasal sinuses and mastoid air cells are clear. The calvarium and skull base are int act. The ventricles and sulci are within normal limits. There is no mass, hematoma, midline shift, or acute infarct. Impression: No acute intracranial abnormality. ACT 112: Negative or not required by law. Electronically signed by: Yoni Ortiz M.D. 03/18/2020 12:56 PM
[2020-03-18] MEDS ORDERED: CALCIUM CARBONATE 500 MG CHEWABLE TAB PO PRN (19:03)
[2020-03-18] MEDS: DOXYCYCLINE HYCLATE 100 MG CAP PO SCH (20:58)
[2020-03-18] MEDS: MICONAZOLE NITRATE 2% VAG CR 45 GM TUBE PV SCH (20:58)
[2020-03-18] MEDS: TRAMADOL HCL 50 MG TABLET PO PRN (21:17)
[2020-03-18] MEDS: GABAPENTIN 600 MG TAB PO PRN (21:32)
--- NOTE | 2020-03-18 21:36 | Hospitalist Progress Note ---
Date of Service March 18, 2020 Assessment & Plan (1) Acute respiratory failure with hypoxia: Presented with hypoxia- O2 sats as loss as 83% (? on RA). CTA chest negative for PE. SARS-CoV-2 PCR negative. Hypoxia may be due to pneumonia, CHF, or other processes as discussed below. Received supplemental O2. Now oxygenating well on RA. (2) Abnormal chest CT: CTA chest 03/15/20 IMPRESSION: 1. No pulmonary emboli identified. 2. Mild dilatation of the central pulmonary arteries and right heart chambers with straightening of the interventricular septum. These findings suggest pulmonary arterial hypertension/elevated right heart pressures. 3. Extensive bilateral airspace opacities within the lungs with interlobular septal thickening. These findings are nonspecific. Differential considerations include pulmonary edema, an infectious etiology, ARDS, acute interstitial pneumonia, alveolar proteinosis, and pulmonary venoocclusive disease. These pulmonary findings could potentially account for elevated pulmonary arterial pr essures. Pulmonary consultation might be considered. 4. Mild cardiomegaly. Electronically signed by: Bobby Mata M.D. May have infectious or noninfectious pulmonary process. Pulmonary Medicine and Cardiology consulted for their input. Viral pneumonia, pulmonary edema, interstitial lung disease, alveolar hemorrhage considered. Bronchoscopy recommended, patient declined. Echo unremarkable. Symptoms and chest x-ray have improved quickly. Suspected noncardiac pulmonary edema from methamphetamine use. (3) Pneumonia: Presented with productive cough and SOB. WBC 4280. Chest x-ray showed interstitial markings and bilateral opacities without lobar consolidation. Pneumonia considered. CT chest as noted above. [employer] respiratory panel negative for SARS-CoV-2, influenza, and other respiratory pathogens tested. Blood cultures obtained and negative so far. Check sputum gram stain, C&S if specimen can be provided. Underlying immunodeficiency (? details). Pulmonary Medicine consulted. HIV negative. Now appears that respiratory symptoms were probably due to noncardiac pulmonary edema. Continue doxycycline and ceftriaxone. (4) Chest pain at rest: Presented with chest pain. Admission EKG showed ST at 145 / min, inverted T-waves III, V3, biphasic T-waves V4, no ST elevation. Initial troponin 0.120; troponins subsequently fell. EKG this morning showed NSR at 82/min, slight ST elevation (0.5 - 1 mm) inferiorly, T-wave inversion V3-4. Cardiology consulted. Echo unremarkable. [place] that troponin elevation most likely due to demand ischemia. Eventual outpatient stress testing recommended after recovery from current illness. (5) Elevated troponin: As noted above. (6) Hypertension: Started on lisinopril. (7) Anemia: Chronic anemia with baseline Hgb ~ 11. Hgb at time of admission 8.7 and fell to 7.5. Received IV fluids; may have hemodilution. No gross GI bleeding. Normal bilirubin makes hemolysis unlikely. Fe 12, TIBC 313, transferrin 240, ferritin 55.9; B12 and folate normal. Retic count low. Check stool for OB. Hgb today = 8.8. Follow. Outpatient Hematology consultation recommended. (8) Altered mental status: Varying degrees of confusion during hospital stay. Daughter concerned that not yet back to baseline cognitive status. History of recent closed head injury. CT head negative for SDH> Improving. Follow. 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 Importance of abstinence discussed. Ongoing counseling recommended. (10) Depression with anxiety: Pt requested psych consult, then refused to participate in interview. Ongoing counseling recommended. (11) DVT prophylaxis: SCD's + enoxaparin. Ambulate. (12) Discharge planning issues: Anticipated discharge to home. Family Medicine follow-up with Dr. Caicedo. Admission and Anticipated Discharge Date Admission Date: March 15, 2020 Subjective Recheck for multiple problems. Patient seen in their room around 0930. Feels better overall. Cough improved- now minimal. Less SOB. No further chest pain. No fever. Having some problems with word finding. Daughter visited and concerned about recent closed head injury. Review of Systems: Constitutional- as noted above. Cardiac- as noted above. Pulmonary- as noted above. GI- no nausea, vomiting, diarrhea, melena, hematochezia. - no urinary symptoms. Otherwise, as noted above. Physical Exam Constitutional: no acute distress Respiratory: no respiratory distress Auscultation: lungs clear to auscultation bilaterally Cardiovascular: Rate/Rhythm: regular rate and regular rhythm Vessels: no JVD Extremities: + edema (chronic lymphedema lower extremities); no calf tenderness Gastrointestinal (Abdomen): normal bowel sounds, soft, nontender, no hepatosplenomegaly Musculoskeletal: Extremities: no cyanosis Skin: no rashes, warm and dry Neurologic: Speech / Cognition: normal speech (trouble with word finding) Psychiatric: Orientation: alert and oriented x 3 more conversant and interactive Results & Data Results & Data ([place]) Vital Signs (Past 12 Hours) Vital Signs Temp Pulse Pulse Resp BP BP Pulse Ox 03/18/20 19:05 36.6 C 83 20 149/94 H 96 03/18/20 11:44 36.7 C 101 H 20 159/100 H 100 03/18/20 10:57 79 Laboratory Results 03/18/20 06:45 03/18/20 06:[address] HEAD (without contrast) Findings: The paranasal sinuses and mastoid air cells are clear. The calvarium and skull base are intact. The ventricles and sulci are within normal limits. There is no mass, hematoma, midline shift, or acute infarct. Impression: No acute intracranial abnormality. Electronically signed by: Yoni Ortiz M.D. 03/18/2020 12:56 PM (1) Pneumonia Laterality: bilateral Lung location: unspecified part of lung Pneumonia type: due to unspecified organism Qualified Code(s): J18.9 - Pneumonia, unspecified organism (2) Anemia Anemia type: unspecified type Qualified Code(s): D64.9 - Anemia, unspecified
[2020-03-19] MEDS: GUAIFENESIN/DEXTROM SYRUP 100MG/10MG 5ML UDC PO PRN ×3 (02:00→20:49)
[2020-03-19 06:49] LABS: Hematocrit (blood only) 29.9 % (37-47); Hemoglobin 8.6 g/dL (12.0-16.0); Mean Corpuscular Hemoglobin 21.3 pg (25-34); Mean Corpuscular Hgb Conc 28.8 g/dL (32-36); Mean Corpuscular Volume 74.2 fL (80-100); Mean Platelet Volume 8.6 fL (7.4-10.4); Platelet Count 525 K/uL (130-400); RDW Coefficient of Variation 17.8 % (11.5-14.5); RDW Standard Deviation 48.4 fL (36.4-46.3); Red Blood Count 4.03 M/uL (4.2-5.4); White Blood Count 3.51 K/uL (4.8-10.8)
[2020-03-19 07:09] LABS: Basophils # (auto) 0.01 K/uL (0-0.2); Basophils % (auto) 0.3 %; Eosinophils # (auto) 0.27 K/uL (0-0.5); Eosinophils % (auto) 7.7 %; Hypochromasia Present; Lymphocytes # (auto) 1.75 K/uL (1.2-3.4); Lymphocytes % (auto) 49.9 %; Microcytosis Present; Monocytes # (auto) 0.41 K/uL (0.11-0.59); Monocytes % (auto) 11.7 %; Neutrophils # (auto) 1.07 K/uL (1.4-6.5); Neutrophils % (auto) 30.4 %; Polychromasia 1+; Target Cells 1+
[2020-03-19 07:25] LABS: Albumin Globulin Ratio 0.8 (0.9-2); Albumin Level 2.7 gm/dl (3.4-5.0); BUN Creatinine Ratio 23.9 (10-20); Bilirubin Direct 0.1 mg/dl (0-0.2); Bilirubin,Total 0.6 mg/dl (0.2-1); Calcium 8.6 mg/dl (8.5-10.1); Creatinine Clr Calc Pharmacy 187.1 ml/min; Est GFR (African American) 138.3; Est GFR (Non-African American) 119.4; Globulin 3.5 gm/dl (2.5-4.0); Potassium 3.3 mmol/L (3.5-5.1); Total Protein 6.2 gm/dl (6.4-8.2)
[2020-03-19] MEDS ORDERED: POTASSIUM CHLORIDE 20 MEQ TABCR PO ONE (07:45)
[2020-03-19] MEDS: MICONAZOLE NITRATE POWDER 43 GM EXT SCH ×3 (08:13→20:47)
[2020-03-19] MEDS: lisinopriL 20 MG TAB PO SCH (08:14)
[2020-03-19] MEDS: DULOXETINE HCL 60 MG CAP PO SCH (08:14)
[2020-03-19] MEDS: ENOXAPARIN INJ 40 MG/0.4 ML SYR SQ SCH (08:14)
[2020-03-19] MEDS: BACLOFEN 10 MG TAB PO SCH ×2 (08:15→20:50)
[2020-03-19] MEDS: DOXYCYCLINE HYCLATE 100 MG CAP PO SCH ×2 (08:15→20:49)
[2020-03-19] MEDS: cefTRIAXone SODIUM 2,000 MG in DEXTROSE 5% 50 ML IV SCH (09:06)
[2020-03-19 11:30] LABS: Hepatitis B Surface Antigen Neg (Neg)
[2020-03-19 11:59] LABS: Hepatitis C IgG 13Yrs+Old_Rflx Neg (Neg)
[2020-03-19] MEDS ORDERED: SODIUM CHLORIDE 0.65% NA SOLN 45 ML (OCEAN) ONE (15:26)
[2020-03-19] MEDS ORDERED: COUGH DROP (SUGAR FREE) LOZ 24 LOZ/1 BOX BUCCAL ONE (15:26)
[2020-03-19] MEDS ORDERED: CLOTRIMAZOLE 1% CR 15 GM TUBE EXT PRN (16:11)
--- NOTE | 2020-03-19 20:32 | Hospitalist Progress Note ---
Date of Service March 19, 2020 Assessment & Plan (1) Acute respiratory failure with hypoxia: Presented with hypoxia- O2 sats as loss as 83% (? on RA). CTA chest negative for PE. SARS-CoV-2 PCR negative. Hypoxia may be due to pneumonia, CHF, or other processes as discussed below. Received supplemental O2. Now oxygenating well on RA. (2) Abnormal chest CT: CTA chest 03/15/20 IMPRESSION: 1. No pulmonary emboli identified. 2. Mild dilatation of the central pulmonary arteries and right heart chambers with straightening of the interventricular septum. These findings suggest pulmonary arterial hypertension/elevated right heart pressures. 3. Extensive bilateral airspace opacities within the lungs with interlobular septal thickening. These findings are nonspecific. Differential considerations include pulmonary edema, an infectious etiology, ARDS, acute interstitial pneumonia, alveolar proteinosis, and pulmonary venoocclusive disease. These pulmonary findings could potentially account for elevated pulmonary arterial pr essures. Pulmonary consultation might be considered. 4. Mild cardiomegaly. Electronically signed by: Bobby Mata M.D. May have infectious or noninfectious pulmonary process. Pulmonary Medicine and Cardiology consulted for their input. Viral pneumonia, pulmonary edema, interstitial lung disease, alveolar hemorrhage considered. Bronchoscopy recommended, patient declined. Echo showed normal LV systolic function. Symptoms and chest x-ray have improved quickly. Suspected noncardiac pulmonary edema, mechanism uncertain. (3) Pneumonia: Presented with productive cough and SOB. WBC 4280. Chest x-ray showed interstitial markings and bilateral opacities without lobar consolidation. Pneumonia considered. CT chest as noted above. [employer] respiratory panel negative for SARS-CoV-2, influenza, and other respiratory pathogens tested. Blood cultures obtained and negative so far. Check sputum gram stain, C&S if specimen can be provided. Underlying immunodeficiency (? details). Pulmonary Medicine consulted. HIV negative. Now appears that respiratory symptoms were probably due to noncardiac pulmonary edema. Continue doxycycline and ceftriaxone. (4) Chest pain at rest: Presented with chest pain. Admission EKG showed ST at 145 / min, inverted T-waves III, V3, biphasic T-waves V4, no ST elevation. Initial troponin 0.120; troponins subsequently fell. EKG this morning showed NSR at 82/min, slight ST elevation (0.5 - 1 mm) inferiorly, T-wave inversion V3-4. Cardiology consulted. Echo unremarkable. [place] that troponin elevation most likely due to demand ischemia. Eventual outpatient stress testing recommended after recovery from current illness. (5) Elevated troponin: As noted above. (6) Hypertension: Started on lisinopril. (7) Anemia: Chronic anemia with baseline Hgb ~ 11. Hgb at time of admission 8.7 and fell to 7.5. Received IV fluids; may have hemodilution. No gross GI bleeding. Normal bilirubin makes hemolysis unlikely. Fe 12, TIBC 313, transferrin 240, ferritin 55.9; B12 and folate normal. Retic count low. Check stool for OB. Hgb today = 8.6. Follow. Outpatient Hematology consultation recommended. (8) Altered mental status: Varying degrees of confusion during hospital stay. Daughter concerned that not yet back to baseline cognitive status. History of recent closed head injury. CT head negative for SDH> Improving. Follow. (9) Drug use: Patient snorted methadone tablets prior to admission. She denies use of other drugs (specifically methamphetamine or cocaine). Importance of abstinence discussed. Ongoing counseling recommended. (10) Depression with anxiety: Pt requested psych consult, then refused to participate in interview. Ongoing counseling recommended. (11) DVT prophylaxis: SCD's + enoxaparin. Ambulate. (12) Discharge planning issues: Anticipated discharge to home. Family Medicine follow-up with Dr. Caicedo. Admission and Anticipated Discharge Date Admission Date: March 15, 2020 Subjective Recheck for multiple problems. Patient seen in their room around 1040. No fever. Cough and SOB improved. Memory improved. No ambulating much yet. Review of Systems: Constitutional- as noted above. Cardiac- as noted above. Pulmonary- as noted above. GI- no nausea, vomiting, diarrhea, melena, hematochezia. - no urinary symptoms. Otherwise, as noted above. Physical Exam Constitutional: no acute distress Respiratory: no respiratory distress Auscultation: lungs clear to auscultation bilaterally Cardiovascular: Rate/Rhythm: regular rate and regular rhythm Vessels: no JVD Extremities: + edema (chronic lymphedema lower extremities); no calf tenderness Gastrointestinal (Abdomen): normal bowel sounds, soft, nontender, no hepatosplenomegaly Musculoskeletal: Extremities: no cyanosis Skin: no rashes, warm and dry Psychiatric: Orientation: alert and oriented x 3 Results & Data Results & Data ([facility]) Vital Signs (Past 12 Hours) Vital Signs Temp Pulse Resp BP Pulse Ox 03/19/20 19:21 36.7 C 82 20 111/76 99 03/19/20 15:35 37.0 C 83 16 119/83 99 03/19/20 11:24 36.8 C 88 16 127/81 95 Laboratory Results Laboratory Results - last 24 hr 03/19/20 03/19/20 03/19/20 06:24 06:24 06:24 WBC 3.51 L RBC 4.03 L Hgb 8.6 L Hct 29.9 L MCV 74.2 L MCH 21.3 L MCHC 28.8 L RDW Std Deviation 48.4 H RDW Coeff of Kelli 17.8 H Plt Count 525 H MPV 8.6 Immature Gran % (Auto) 0.0 Neut % (Auto) 30.4 Lymph % (Auto) 49.9 [place] % (Auto) 11.7 Eos % (Auto) 7.7 Baso % (Auto) 0.3 Neut # (Auto) 1.07 L Lymph # (Auto) 1.75 [place] # (Auto) 0.41 Eos # (Auto) 0.27 Baso # (Auto) 0.01 Immature Gran # (Auto) 0.00 Polychromasia 1+ Hypochromasia Present Microcytosis Present Target Cells 1+ Sodium 143 Potassium 3.3 L Chloride 108 H Carbon Dioxide 31 Anion Gap 4.0 BUN 11 Creatinine 0.44 L Est Cr Clr Drug Dosing 187.1 Est GFR ( Amer) 138.3 Est GFR (Non-Af Amer) 119.4 BUN/Creatinine Ratio 23.9 H Glucose 80 Calcium 8.6 Total Bilirubin 0.6 Direct Bilirubin 0.1 AST 9 L ALT 20 Alkaline Phosphatase 114 Total Protein 6.2 L Albumin 2.7 L Globulin 3.5 Albumin/Globulin Ratio 0.8 L Hepatitis A IgM Ab Hep Bs Antigen Neg Hep B Core IgM Ab Hepatitis C Antibody Neg 03/19/20 06:24 WBC RBC Hgb Hct MCV MCH MCHC RDW Std Deviation RDW Coeff of Kelli Plt Count MPV Immature Gran % (Auto) Neut % (Auto) Lymph % (Auto) [place] % (Auto) Eos % (Auto) Baso % (Auto) Neut # (Auto) Lymph # (Auto) [place] # (Auto) Eos # (Auto) Baso # (Auto) Immature Gran # (Auto) Polychromasia Hypochromasia Microcytosis Target Cells Sodium Potassium Chloride Carbon Dioxide Anion Gap BUN Creatinine Est Cr Clr Drug Dosing Est GFR ( Amer) Est GFR (Non-Af Amer) BUN/Creatinine Ratio Glucose Calcium Total Bilirubin Direct Bilirubin AST ALT Alkaline Phosphatase Total Protein Albumin Globulin Albumin/Globulin Ratio Hepatitis A IgM Ab Pending Hep Bs Antigen Hep B Core IgM Ab Pending Hepatitis C Antibody (1) Pneumonia Laterality: bilateral Lung location: unspecified part of lung Pneumonia type: due to unspecified organism Qualified Code(s): J18.9 - Pneumonia, unspecified organism (2) Anemia Anemia type: unspecified type Qualified Code(s): D64.9 - Anemia, unspecified
[2020-03-19] MEDS: TRAMADOL HCL 50 MG TABLET PO PRN (20:47)
[2020-03-19] MEDS: MICONAZOLE NITRATE 2% VAG CR 45 GM TUBE PV SCH (20:48)
[2020-03-19] MEDS: GABAPENTIN 600 MG TAB PO PRN (20:49)
[2020-03-20] MEDS: MICONAZOLE NITRATE POWDER 43 GM EXT SCH ×2 (09:20→10:59)
[2020-03-20] MEDS: BACLOFEN 10 MG TAB PO SCH (09:20)
[2020-03-20] MEDS: ENOXAPARIN INJ 40 MG/0.4 ML SYR SQ SCH (09:20)
[2020-03-20] MEDS: DULOXETINE HCL 60 MG CAP PO SCH (09:21)
[2020-03-20] MEDS: lisinopriL 20 MG TAB PO SCH (09:21)
[2020-03-20] MEDS: DOXYCYCLINE HYCLATE 100 MG CAP PO SCH (09:21)
[2020-03-20] MEDS: cefTRIAXone SODIUM 2,000 MG in DEXTROSE 5% 50 ML IV SCH ×2 (09:26→09:49)
[2020-03-20] MEDS: GUAIFENESIN/DEXTROM SYRUP 100MG/10MG 5ML UDC PO PRN (10:18)
[2020-03-20] MEDS ORDERED: POTASSIUM CHLORIDE 20 MEQ TABCR PO ONE (12:11)
--- NOTE | 2020-03-20 12:22 | Hospitalist Progress Note ---
Date of Service March 20, 2020 Assessment & Plan (1) Acute respiratory failure with hypoxia: Presented with hypoxia- O2 sats as loss as 83% (? on RA). CTA chest negative for PE. SARS-CoV-2 PCR negative. Hypoxia may have been due to pneumonia, pulmonary edema, or other processes as discussed below. Received supplemental O2. Now oxygenating well on RA. (2) Abnormal chest CT: CTA chest 03/15/20 IMPRESSION: 1. No pulmonary emboli identified. 2. Mild dilatation of the central pulmonary arteries and right heart chambers with straightening of the interventricular septum. These findings suggest pulmonary arterial hypertension/elevated right heart pressures. 3. Extensive bilateral airspace opacities within the lungs with interlobular septal thickening. These findings are nonspecific. Differential considerations include pulmonary edema, an infectious etiology, ARDS, acute interstitial pneumonia, alveolar proteinosis, and pulmonary venoocclusive disease. These pulmonary findings could potentially account for elevated pulmonary arterial pressures. Pulmonary consultation might be considered. 4. Mild cardiomegaly. Electronically signed by: Bobby Mata M.D. May have infectious or noninfectious pulmonary process. Pulmonary Medicine and Cardiology consulted for their input. Viral pneumonia, pulmonary edema, interstitial lung disease, alveolar hemorrhage considered. Bronchoscopy recommended, patient declined. Echo showed normal LV systolic function. Symptoms and chest x-ray have improved quickly. Rapid resolution of infiltrates made viral pneumonia, interstitial lung disease, alveolar hemorrhage less likely. Suspected noncardiac pulmonary edema, mechanism uncertain. Work-up for connective tissue diseases pending. Repeat CT recommended in 6-8 weeks to ensure resolution. (3) Pneumonia: Presented with productive cough and SOB. WBC 4280. Chest x-ray showed interstitial markings and bilateral opacities without lobar consolidation. Pneumonia considered. CT chest as noted above. [employer] respiratory panel negative for SARS-CoV-2, influenza, and other respiratory pathogens tested. Blood cultures obtained and negative so far. Sputum gram stain, C&S ordered, but adequate specimen not produced. Underlying immunodeficiency (? details). Pulmonary Medicine consulted. HIV negative. Now appears that respiratory symptoms were probably due to noncardiac pulmonary edema. Noncardiac pulmonary edema has been associated with recreational use of methadone. May have still had lower respiratory tract infection. Received ceftriaxone + doxycycline. Discharged on doxycycline to complete course of therapy. (4) Chest pain at rest: Presented with chest pain. Admission EKG showed ST at 145 / min, inverted T-waves III, V3, biphasic T-waves V4, no ST elevation. Initial troponin 0.120; troponins subsequently fell. EKG this morning showed NSR at 82/min, slight ST elevation (0.5 - 1 mm) inferiorly, T-wave inversion V3-4. Cardiology consulted. Echo unremarkable. [place] that troponin elevation most likely due to demand ischemia. Eventual outpatient stress testing recommended after recovery from current illness. (5) Elevated troponin: As noted above. (6) Hypertension: Started on lisinopril. (7) Anemia: Chronic anemia with baseline Hgb ~ 11. Hgb at time of admission 8.7 and fell to 7.5. Received IV fluids; may have hemodilution. No gross GI bleeding. Normal bilirubin makes hemolysis unlikely. Fe 12, TIBC 313, transferrin 240, ferritin 55.9; B12 and folate normal. Retic count low. No gross GI bleeding. Hgb 10/4 = 8.6. Follow. Outpatient Hematology consultation recommended. (8) Altered mental status: Varying degrees of confusion during hospital stay. Daughter concerned that not yet back to baseline cognitive status. History of recent closed head injury. CT head negative for subdural hematoma. Mental status back to normal by discharge. Follow. (9) Drug use: Patient snorted methadone tablets prior to admission. She denies use of other drugs (specifically methamphetamine or cocaine). Importance of abstinence discussed. Ongoing counseling recommended. (10) Depression with anxiety: Pt requested psych consult, then refused to participate in interview. Ongoing counseling recommended. (11) Hypokalemia: K as low as 3.3. Received oral replacement. K should continue to rise due to initiation of lisinopril. Recheck BMP in clinic. (12) DVT prophylaxis: SCD's + enoxaparin. Ambulate. (13) Discharge planning issues: Discharged to home. Family Medicine follow-up with Dr. Caicedo. Admission and Anticipated Discharge Date Admission Date: March 15, 2020 Subjective Recheck for multiple problems. Patient seen in their room around 1030. Doing well. Ready to go home. Ambulating. Minimal residual cough. No chest pain. No nausea, vomiting, diarrhea. Physical Exam Constitutional: no acute distress Respiratory: no respiratory distress Auscultation: lungs clear to auscultation bilaterally Cardiovascular: Rate/Rhythm: regular rate and regular rhythm Vessels: no JVD Extremities: + edema (chronic lymphedema lower extremities); no calf tenderness Gastrointestinal (Abdomen): normal bowel sounds, soft, nontender, no hepatosplenomegaly Musculoskeletal: Extremities: no cyanosis Skin: no rashes, warm and dry Psychiatric: Orientation: alert and oriented x 3 Results & Data Results & Data ([facility]) Vital Signs (Past 12 Hours) Vital Signs Temp Pulse Pulse Resp BP BP Pulse Ox 03/20/20 11:12 37.1 C 71 18 118/76 100 03/20/20 07:22 62 03/20/20 07:08 36.9 C 75 18 110/70 98 03/20/20 03:37 36.4 C L 75 18 108/72 96 03/20/20 00:26 72 (1) Anemia Anemia type: unspecified type Qualified Code(s): D64.9 - Anemia, unspecified (2) Pneumonia Laterality: bilateral Lung location: unspecified part of lung Pneumonia type: due to unspecified organism Qualified Code(s): J18.9 - Pneumonia, unspecified organism
[2020-03-21 03:33] LABS: Hepatitis A Antibody IgM NON-REACTIVE (NON-REACTIVE); Hepatitis B Core Antibody IgM NON-REACTIVE (NON-REACTIVE)
--- NOTE | 2020-03-21 12:19 | Discharge Summary ---
Date of Service Date of Admission: 03/16/20 Date of Discharge: 03/20/20 Admission HPI Per Admitting Provider This is a 49-year-old female with past medical history significant for post-gastric surgery syndrome, hidradenitis, history of common variable immunodeficiency, which patient attributes to her gastric bypass surgery, history of posttraumatic stress disorder, borderline personality disorder, history of opiate abuse, comes in because of shortness of breath. The patient says she lives alone. She still smokes 1 pack a day for more than 20 years, since about 1 week when she goes out to smoke, she gets short of breath and she is coughing up greenish phlegm and with exertion gets more short of breath. Says also she is dropping things at home. Denies any fever, chills. She is also getting chest pain on exertion, sometimes 9/10 in severity, pressure like and sharp pains, radiating to her left arm which prompted her to go to the family doctor and was advised to come to the ER. Here, in the ER, she is afebrile, no leukocytosis, but has lymphopenia and D-dimer was elevated at 1020. Troponin was 0.12. BNP was 7000. UA was negative, Biofire was negative. CTA of the chest was done which shows bilateral airspace opacities with interval septal thickening, could be pulmonary edema, could be pneumonia, could also suggest pulmonary arterial hypertension, elevated right heart pressures.When the patient came in, she was tachycardic, heart rate in 145 so she was given a liter of fluid and IV Lopressor,. Oxygen sats in 80's on room air.Now she is saturating in high 90s on 3 liters and blood pressure is okay and heart rate is okay. The patient says she has chronic headaches and neck pains. She has blurred visions going on for the last 3 years. Denies any earache. She has had runny nose for 1.5 years. Denies any sore throat. She has a dry mouth. Denies any loss of sense of smell or taste. No exposure to any COVID patients, lives alone. She was nauseous since last 2 days, so she did not eat much since last 2 days. Denies any vomiting, no diarrhea or constipation. Normal bladder movements. Has chronic lower extremity edema. She says this is going on for last 1-1.5 years. No rash seen. Principal Diagnosis acute respiratory failure with hypoxia probable noncardiac pulmonary edema OTHER ACUTE / NEW DIAGNOSES chest pain probable lower respiratory tract infection altered mental state abnormal CT chest - needs follow-up Discharge Data Allergies Allergy/AdvReac Type Severity Reaction Status Date / Time poison stephen extract Allergy Intermediate Rash and Verified 03/15/20 20:26 blisters cephalexin AdvReac Severe Nausea,vomiting Verified 03/15/20 20:26 and diarrhea Consultations 03/15/20 19:44 ED Decision to Admit Stat 03/15/20 22:13 Consult Case Management - Discharge Planning Routine 03/16/20 08:00 Consult Cardiology Routine Consult Pulmonology Routine 03/17/20 09:26 Consult Psychiatry Routine Ordered Studies 03/15/20 17:57 CT angio chest PE protocol Stat 03/18/20 12:29 CT head/brain wo con Urgent Hospital Course (1) Acute respiratory failure with hypoxia: Presented with hypoxia- O2 sats as loss as 83% (? on RA). CTA chest negative for PE. SARS-CoV-2 PCR negative. Hypoxia may have been due to pneumonia, pulmonary edema, or other processes as discussed below. Received supplemental O2. Now oxygenating well on RA. (2) Abnormal chest CT: CTA chest 03/15/20 IMPRESSION: 1. No pulmonary emboli identified. 2. Mild dilatation of the central pulmonary arteries and right heart chambers with straightening of the interventricular septum. These findings suggest pulmonary arterial hypertension/elevated right heart pressures. 3. Extensive bilateral airspace opacities within the lungs with interlobular septal thickening. These findings are nonspecific. Differential considerations include pulmonary edema, an infectious etiology, ARDS, acute interstitial pneumonia, alveolar proteinosis, and pulmonary venoocclusive disease. These pulmonary findings could potentially account for elevated pulmonary arterial pressures. Pulmonary consultation might be considered. 4. Mild cardiomegaly. Electronically signed by: Bobby Mata M.D. May have infectious or noninfectious pulmonary process. Pulmonary Medicine and Cardiology consulted for their input. Viral pneumonia, pulmonary edema, interstitial lung disease, alveolar hemorrhage considered. Bronchoscopy recommended, patient declined. Echo showed normal LV systolic function. Symptoms and chest x-ray have improved quickly. Rapid resolution of infiltrates made viral pneumonia, interstitial lung disease, alveolar hemorrhage less likely. Suspected noncardiac pulmonary edema, mechanism uncertain. Work-up for connective tissue diseases pending. Repeat CT recommended in 6-8 weeks to ensure resolution. (3) Pneumonia: Presented with productive cough and SOB. WBC 4280. Chest x-ray showed interstitial markings and bilateral opacities without lobar consolidation. Pneumonia considered. CT chest as noted above. BioFire respiratory panel negative for SARS-CoV-2, influenza, and other respiratory pathogens tested. Blood cultures obtained and negative so far. Sputum gram stain, C&S ordered, but adequate specimen not produced. Underlying immunodeficiency (? details). Pulmonary Medicine consulted. HIV negative. Now appears that respiratory symptoms were probably due to noncardiac pulmonary edema. Noncardiac pulmonary edema has been associated with recreational use of methadone. May have still had lower respiratory tract infection. Received ceftriaxone + doxycycline. Discharged on doxycycline to complete course of therapy. (4) Chest pain at rest: Presented with chest pain. Admission EKG showed ST at 145 / min, inverted T-waves III, V3, biphasic T-waves V4, no ST elevation. Initial troponin 0.120; troponins subsequently fell. EKG this morning showed NSR at 82/min, slight ST elevation (0.5 - 1 mm) inferiorly, T-wave inversion V3-4. Cardiology consulted. Echo unremarkable. [place] that troponin elevation most likely due to demand ischemia. Eventual outpatient stress testing recommended after recovery from current illness. (5) Elevated troponin: As noted above. (6) Hypertension: Started on lisinopril. (7) Anemia: Chronic anemia with baseline Hgb ~ 11. Hgb at time of admission 8.7 and fell to 7.5. Received IV fluids; may have hemodilution. No gross GI bleeding. Normal bilirubin makes hemolysis unlikely. Fe 12, TIBC 313, transferrin 240, ferritin 55.9; B12 and folate normal. Retic count low. No gross GI bleeding. Hgb 10/4 = 8.6. Follow. Outpatient Hematology consultation recommended. (8) Altered mental status: Varying degrees of confusion during hospital stay. Daughter concerned that not yet back to baseline cognitive status. History of recent closed head injury. CT head negative for subdural hematoma. Mental status back to normal by discharge. Follow. (9) Drug use: Patient snorted methadone tablets prior to admission. She denies use of other drugs (specifically methamphetamine or cocaine). Importance of abstinence discussed. Ongoing counseling recommended. (10) Depression with anxiety: Pt requested psych consult, then refused to participate in interview. Ongoing counseling recommended. (11) Hypokalemia: K as low as 3.3. Received oral replacement. K should continue to rise due to initiation of lisinopril. Recheck BMP in clinic. (12) DVT prophylaxis: SCD's + enoxaparin. Ambulate. (13) Discharge planning issues: Discharged to home. Family Medicine follow-up with Dr. Caicedo. Total Time Total Time Spent Total Time Spent (In Minutes): 40 Discharge Plan Discharge Items Patient Disposition: Home - Self-Care Reason For Visit: chest pain, cough, trouble breathing Discharge Diagnosis: fluid in lungs- cleared up quickly suspected chest infection Activity: Resume your previous activity Non-emergency contact: Primary Care Provider and Hospitalist Call non-emergency contact if: you have any medication questions and your symptoms worsen Follow-up/Referrals: Drew Caicedo MD [Primary Care Provider] - (Date & Time 03/24/2020 11:00 AM Provider Drew Caicedo III, MD Department [facility] ) Diet: Heart Healthy Addtl Attending Provider Instructions: MEDICATION CHANGES: lisinopril 10 mg daily for blood pressure doxycycline 100 mg twice a day for chest infection RECOMMENDATIONS FOR FOLLOW-UP: Please ask Dr. Caicdeo to reschedule repeat CT scan of chest in 6-8 weeks. Your blood count was low. Please ask Dr. Caicedo to make a referral to see a Senior Credit Analyst in [facility]. OTHER INSTRUCTIONS: Please do not smoke. Please do not use any drugs that are not prescribed. You probably had a bad reaction to methadone. Please do not take it again. Seek medical attention if you have: * temperature above 101 * chest pain or trouble breathing * abdominal pain, nausea, vomiting * diarrhea, dark stools or bloody stools * any unanswered questions or concerns Call 911 if symptoms are severe. Please take good care of yourself. Call if you have any questions or problems. You can reach a [facility] hospitalist on duty at [facility] 24 hours a day by calling [phone]. My cell # is [phone]. Pending Studies at Discharge: Yes Studies:: Several lab tests ordered by Pulmonary Medicine to check out your lungs. Please have Dr. Caicedo check results when you see him. Stand-Alone Forms: [facility], Smoking Cessation Medications and DC Order Prescriptions: New doxycycline hyclate 100 mg Capsule 100 mg PO BID Qty: 6 RF: 0 lisinopril 10 mg tablet 10 mg PO DAILY Qty: 30 RF: 1 gabapentin 600 mg tablet 600 mg PO HS PRN (Reason: Sleep) Qty: 4 RF: 0 tramadol 50 mg tablet 50 mg PO Q6H PRN (Reason: pain) Qty: 4 RF: 0 Continued cyanocobalamin (vitamin B-12) 1,000 mcg/mL solution 1,000 mcg IM MONTHLY RF: 0 ibuprofen [Advil] 200 mg Tablet 400 mg PO Q6H PRN (Reason: Pain) RF: 0 acetaminophen [Tylenol Extra Strength] 500 mg Tablet 1,000 mg PO Q6H PRN (Reason: Pain) RF: 0 diclofenac sodium 1 % gel 4 g TOPICAL QID PRN (Reason: Pain) RF: 0 lidocaine 5 % adhesive patch,medicated 1 patch topical DAILY PRN (Reason: Pain) RF: 0 baclofen 10 mg tablet 10 mg PO BID RF: 0 diphenhydramine HCl [Benadryl] 25 mg Capsule 50 mg PO HS PRN (Reason: Sleep) RF: 0 duloxetine 60 mg capsule,delayed release(DR/EC) 60 mg PO DAILY RF: 0 Discontinued naproxen sodium [Aleve] 220 mg Tablet 440 mg PO BID PRN (Reason: Pain) RF: 0 Discharge Orders: Discharge Order (Routine); Ordered 03/20/20 Ordered By: Drew Peters Admission Data Admit Date/Time: 03/15/20 21:07 Attending Provider: Drew Peters Admit Provider: Reg Tom Primary Care Provider: Drew Caicedo Other Providers: Reg Tom ; Chaparro Burciaga ; Charles Gomez ; Steve Dupont ; Marino Allison ; Ignacio Boss ; Srikanth Gavin ; Yuliya Castillo ; Feli Meléndez ; Luis Guerra ; Blanca Robbins ; Angelina Bain Other Interventions: Discharge Summary Assessment (RN) Last Done: 03/20/20 13:51
[2020-03-21 17:30] LABS: Anti-dsDNA Recombinant 1 IU/mL; Haptoglobin 330 mg/dL (43-212); Mycoplasma pneumoniae Ab, IgM 95 U/mL (<770)
[2020-03-22 01:31] LABS: Anti Nuclear Antibody Screen NEGATIVE (NEGATIVE); Anti-Centromere Ab <1.0 NEG AI (<1.0 NEG); Anti-Neutrophil Antibody DETECTED (NONE DETECTED); Anti-SS-A <1.0 NEG AI (<1.0 NEG); Anti-SS-B <1.0 NEG AI (<1.0 NEG); JO 1 Antibody <1.0 NEG AI (<1.0 NEG); Proteinase-3 Ab <1.0 AI; RNP Antibody <1.0 NEG AI (<1.0 NEG); Rheumatoid Factor <14 IU/mL (<14); Scleroderma Anti Scl-70 Ab <1.0 NEG AI (<1.0 NEG)
== END 2020-03-20 14:27 | disposition home or self-care (01) | DRG 917 ==
LOC: ED 16:32 → 2S 21:07 → 2N 03-18 14:42

== ENCOUNTER 2020-03-24 20:24 | Inpatient (IN) ==
--- NOTE | 2020-03-24 21:02 | Emergency Department Note ---
Impression & Plan Pancreatitis, Hypokalemia, Left upper quadrant abdominal pain ED Provider Note NAME: DAREK YOUNG AGE: 49 SEX: F ARRIVES VIA: Walk-In INFORMANT: Patient, ED PROVIDER(S): Sunil Rogers MD CHIEF COMPLAINT: Abdominal/flank pain PLAN: Disposition: Admit MEDICAL DECISION MAKING: The patient is a pleasant 49-year-old woman with a past medical history of post gastric surgery syndrome, hidradenitis, common variable immunodeficiency, PTSD, borderline personality disorder, opiate abuse who presents emergency department with left upper abdominal/flank pain over the past 48 hours in the setting of recently being admitted to the hospital for respiratory failure with hypoxia treated for pneumonia and evaluated for troponin elevation thought to be related to demand ischemia. Patient denies any fevers, chills, cough, congestion, vomi ting, diarrhea, urinary symptoms. On arrival patient is no acute distress, afebrile stable vital signs. She has mild left upper abdominal and flank discomfort without discrete tenderness. EKG without overt acute ischemia. Chest x-ray negative for acute process. WBC within normal limits. H/H9 0.6/34.0 similar to prior values. Platelets 760 likely reactive and approximate to prior values. Chemistry without acidosis. Electrolytes and LFTs unremarkable. Lipase is elevated at 1156. UA negative for infection. CT done pelvis was performed and does demonstrate findings consistent with pancreatitis. Findings reviewed with the patient and she is agreeable with admission. Case was discussed with Dr. West, [facility] hospitalist, who will evaluate the patient for admission. Triage Nursing notes reviewed and agree them. Prior medical records reviewed Vital Signs: reviewed and remarkable for no significant abnormalities Differential diagnosis: Appendicitis, testicular torsion, infections, diverticulitis, UTI, obstruction, mesenteric ischemia, aortic pathology, inflammatory bowel disease, renal colic, PUD, pancreatitis, biliary pathology, hernia, volvulus, constipation, as well as other pathologies. ER treatment provided: See below. Diagnostics interpreted by me: ECG: Normal sinus rhythm, 80 bpm, no ectopy, no overt ST elevation or depression, QTC 426, QRS 84., Similar to March 17, 2020. Cardiac Monitoring: An order for continuous cardiac monitoring was placed and demonstrated Laboratory studies: See below Imaging studies: CT SCAN OF THE ABDOMEN AND PELVIS WITH IV CONTRAST CLINICAL HISTORY: Left flank pain. COMPARISON STUDY: Abdominal CT dated 07/24/2018. TECHNIQUE: Following the IV administration of 94 cc of Optiray 320, CT scan of the abdomen and pelvis is performed from the lung bases to the proximal femora. Images are reviewed in the axial, sagittal, and coronal planes. IV contrast was administered without complication. A dose lowering technique was utilized adhering to the principles of ALARA. CT DOSE: 818.73 mGy.cm FINDINGS: Lung bases: The heart is normal in size and without pericardial effusion. There is trace left pleural effusion. The lung bases are otherwise clear noting bibasilar scarring/atelectasis. Liver: The contrast-enhanced liver is enlarged, measuring 20.6 cm in length. The liver is otherwise normal in contour and attenuation. There is no intrahepatic biliary ductal dilatation. The hepatic veins and portal veins are patent. Gallbladder: Surgically absent noting clips in the gallbladder fossa. 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 There is trace residual subcapsular fluid seen laterally on image #79. This measures up to 1 cm in thickness. No acute perfusion anomalies are identified. Pancreas: The pancreas is normal in size and attenuation. The parenchyma enhances homogeneously. Question mild stranding around the pancreatic head and body. No peripancreatic fluid collection is identified. The splenic vein appears patent. Adrenal glands: Unremarkable. Kidneys: The contrast enhanced kidneys are normal in size and without hydronephrosis. The kidneys enhance symmetrically. Abdominal vasculature: The abdominal aorta is normal in course and caliber. Vascular coils are again seen along the course of the splenic artery. Stomach and bowel: There is a small hiatal hernia. Postoperative changes consistent with a history of Andry-en-Y gastric bypass surgery. No bowel obstruction is identified. The appendix is well-visualized and normal. Peritoneum: There is no intraperitoneal free air or abdominal ascites. There are numerous small fat-containing ventral hernias. Lymphadenopathy: None. Pelvic viscera: The bladder is normal as visualized. The uterus is surgically absent. No adnexal lesion is seen. Skeletal structures: No lytic or blastic lesions are seen. IMPRESSION: 1. Question mild stranding around the pancreatic head and body. Correlate clinically and with serum amylase/lipase levels for evidence of mild acute pancreatitis. 2. Trace left pleural effusion. 3. 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 There is trace residual subcapsular fluid which has significantly decreased in size from 07/24/2018. 4. Hepatomegaly. 5. Postoperative change is consistent with a history of Andry-en-Y gastric bypass surgery. There is no bowel obstruction. 6. Additional findings as above. -- SINGLE VIEW CHEST CLINICAL HISTORY: Atypical chest pain. FINDINGS: An AP, portable, upright chest radiograph is compared to study dated 03/17/2020. Correlation is made with chest CT dated 03/15/2020. The examination is degraded by portable technique and patient rotation. The heart is top normal for projection. The pulmonary vasculature is noncongested. There is no airspace consolidation typical for pneumonia. Question a small left pleural effusion. No pneumothorax is seen. The bony thorax is grossly intact. Vascular coils are seen in the upper abdomen. IMPRESSION: 1. There is no airspace consolidation typical for pneumonia. 2. Question a small left pleural effusion. Consultation(s): Case was discussed with Dr. West, [facility] hospitalist, who will evaluate the patient for admission. HPI: The patient is a pleasant 49-year-old woman with a past medical history of post gastric surgery syndrome, hidradenitis, common variable immunodeficiency, PTSD, borderline personality disorder, opiate abuse who presents emergency department with left upper abdominal/flank pain over the past 48 hours in the setting of recently being admitted to the hospital for respiratory failure with hypoxia treated for pneumonia and evaluated for troponin elevation thought to be related to demand ischemia. Patient denies any fevers, chills, cough, c ongestion, vomiting, diarrhea, urinary symptoms. ROS: See above HPI for pertinent positives & negatives. A total of 10 systems reviewed and were otherwise negative. PAST MEDICAL HISTORY:See Below PAST SURGICAL HISTORY:See Below FAMILY HISTORY:See Below SOCIAL HISTORY:See Below HOME MEDICATIONS:See Below ALLERGIES:See Below VITALS:See Below PHYSICAL EXAMINATION: GENERAL: Awake, alert, uncomfortable-appearing, in no distress HENT: Normocephalic, atraumatic. Oropharynx with dry mucous membranes and otherwise unremarkable. EYES: Normal conjunctiva. Sclera non-icteric. NECK: Supple. No nuchal rigidity. FROM. No JVD. RESPIRATORY: Clear to auscultation. CARDIAC: Regular rate, normal rhythm. Extremities warm and well perfused. Pulses equal. ABDOMEN: Soft, non-distended. Mild left upper quadrant and flank tenderness to palpation. No rebound or guarding. No masses. RECTAL: Deferred. MUSCULOSKELETAL: Chest examination reveals no tenderness. The back is s ymmetrical on inspection without obvious abnormality. There is no CVA tenderness to palpation. No joint edema. LOWER EXTREMITIES: Calves are equal size bilaterally and non-tender. No edema. No discoloration. NEURO: Normal sensorium. No sensory or motor deficits noted. SKIN: No rash or jaundice noted. Sunil Rogers MD Past Med/Surg History Medical History Anxiety Avoidant personality disorder Borderline personality disorder Chronic pain of left lower extremity Depression with anxiety Drug use Hidradenitis suppurativa Hirsutism Immunodeficiency disorder Insomnia Low back pain Lymphedema Neuropathy Obesity Peripheral neuropathy Splenic rupture Unspecified asthma Vitamin D deficiency Surgical History H/O gastric bypass H/O: hysterectomy History of shoulder surgery Hx of cholecystectomy Family History Other No significant family history Social History Smoking Status: Former smoker Tobacco Type: Cigarettes Cigarettes Per Day: 20; Smoking End Date: 6 months ago; Second Hand Exposure: No; Hx Alcohol Use: No Hx Substance Use: No Preferred Language: [place] Communication Ability: Effective Visual Impairment: No Limitations Hearing Ability: Normal Machine Stuffer Required: No Beliefs That Will Affect Care: None marital status: Single Current Living Situation: Spouse Current Living Situation Comment: " I was living with somebody up until this morning." current occupational status: disabled Other Information That Helps Us Care for You: No Feels Safe at Home: Yes Safety Concerns: Feels Safe At This Time Childhood Exposure to Second-Hand Smoke: No caffeine: Yes (coffee 4 cups/day ) during the past year weight has: remained stable Dental Care, Regularly: Yes Physical Activity Frequency: 1-2 Times per Week Seatbelt Use: always Sunscreen Use: Yes Do you think of yourself as: straight/heterosexual Sexual Activity: has never been active Assistive Devices: None Allergies Allergies Allergy/AdvReac Type Severity Reaction Status Date / Time poison stephen extract Allergy Intermediate Rash and Verified 03/24/20 23:20 blisters cephalexin AdvReac Severe Nausea,vomiting Verified 03/24/20 23:20 and diarrhea Home Meds Home Medications Medication Instructions Recorded Confirmed cyanocobalamin (vitamin B-12) 1,000 mcg IM MONTHLY 01/27/19 03/24/20 ibuprofen [Advil] 400 mg PO Q6H PRN 04/04/19 03/24/20 acetaminophen [Tylenol Extra 1,000 mg PO Q6H PRN 05/31/19 03/24/20 Strength] diclofenac sodium 4 g TOPICAL QID PRN 05/31/19 03/24/20 lidocaine 1 patch TOPICAL DAILY PRN 01/16/20 03/24/20 baclofen 10 mg PO BID 03/15/20 03/24/20 diphenhydramine HCl [Benadryl] 50 mg PO HS PRN 03/15/20 03/24/20 duloxetine 60 mg PO DAILY 03/15/20 03/24/20 Previous Rx's Medication Instructions Recorded doxycycline hyclate 100 mg PO BID #6 cap 03/20/20 gabapentin 600 mg PO HS PRN #4 tab 03/20/20 lisinopril 10 mg PO DAILY #30 tab 03/20/20 tramadol 50 mg PO Q6H PRN #4 tab 03/20/20 Results & Data (ED) Vital Signs Vital Signs - 24 hr 03/24/20 20:31 03/24/20 20:59 03/24/20 21:30 Temperature 37.0 C Temperature Source Oral Pulse Rate 98 H 83 80 Pulse Rate from SpO2 Sensor 85 80 Pulse Rhythm Regular Pulse Strength Normal Respiratory Rate 20 27 H 19 Respiratory Effort / Characteristics Non-Labored Spontaneous Respiratory Depth Normal Respiratory Pattern Regular Blood Pressure 125/74 128/83 118/80 Blood Pressure Mean 91 104 94 Blood Pressure Position Sitting Pulse Oximetry 98 99 100 Oxygen Delivery Method Room Air Room Air Room Air Sepsis Recent Fever Within 48 Hours No Sepsis New/Unexplained Change in Mental Status N/A Sepsis Action Taken by Nursing No Action Required 03/24/20 22:00 03/24/20 22:30 03/24/20 23:00 Temperature Temperature Source Pulse Rate 80 78 75 Pulse Rate from SpO2 Sensor 81 78 74 Pulse Rhythm Pulse Strength Respiratory Rate 21 19 16 Respiratory Effort / Characteristics Respiratory Depth Respiratory Pattern Blood Pressure 131/65 121/75 108/70 Blood Pressure Mean 84 89 79 Blood Pressure Position Pulse Oximetry 99 98 95 Oxygen Delivery Method Room Air Room Air Room Air Sepsis Recent Fever Within 48 Hours Sepsis New/Unexplained Change in Mental Status Sepsis Action Taken by Nursing 03/24/20 23:30 03/25/20 00:00 03/25/20 00:30 Temperature Temperature Source Pulse Rate 89 71 75 Pulse Rate from SpO2 Sensor 88 73 75 Pulse Rhythm Pulse Strength Respiratory Rate 18 22 21 Respiratory Effort / Characteristics Respiratory Depth Respiratory Pattern Blood Pressure 127/73 126/87 137/95 Blood Pressure Mean 78 98 99 Blood Pressure Position Pulse Oximetry 97 100 97 Oxygen Delivery Method Room Air Room Air Room Air Sepsis Recent Fever Within 48 Hours Sepsis New/Unexplained Change in Mental Status Sepsis Action Taken by Nursing Laboratory Data Attestation: I reviewed the patient's lab results. Result diagrams: 03/25/20 06:05 03/25/20 06:05 Lab Results 03/24/20 03/24/20 03/24/20 Range/Units 20:45 20:50 20:50 WBC 6.87 (4.8-10.8) K/uL RBC 4.55 (4.2-5.4) M/uL Hgb 9.6 L (12.0-16.0) g/dL Hct 34.0 L (37-47) % MCV 74.7 L (80-100) fL MCH 21.1 L (25-34) pg MCHC 28.2 L (32-36) g/dL RDW Std Deviation 49.6 H (36.4-46.3) fL RDW Coeff of Kelli 18.3 H (11.5-14.5) % Plt Count 760 H (130-400) K/uL MPV 9.3 (7.4-10.4) fL Immature Gran % (Auto) 0.1 % Neut % (Auto) 66.4 % Lymph % (Auto) 21.0 % [place] % (Auto) 9.5 % Eos % (Auto) 2.6 % Baso % (Auto) 0.4 % Neut # (Auto) 4.56 (1.4-6.5) K/uL Lymph # (Auto) 1.44 (1.2-3.4) K/uL [place] # (Auto) 0.65 H (0.11-0.59) K/uL Eos # (Auto) 0.18 (0-0.5) K/uL Baso # (Auto) 0.03 (0-0.2) K/uL Immature Gran # (Auto) 0.01 (0.00-0.02) K/uL Hypochromasia Present PT 10.3 (9.0-12.0) Seconds INR 1.0 (0.9-1.1) APTT 25.4 (21.0-31.0) Seconds PTT Ratio 0.9 Sodium (136-145) mmol/L Potassium (3.5-5.1) mmol/L Chloride (98-107) mmol/L Carbon Dioxide (21-32) mmol/L Anion Gap (3-11) BUN (7-18) mg/dl Creatinine (0.6-1.2) mg/dl Est Cr Clr Drug Dosing ml/min Est GFR ( Amer) Est GFR (Non-Af Amer) BUN/Creatinine Ratio (10-20) Glucose (70-99) mg/dl Calcium (8.5-10.1) mg/dl Phosphorus (2.5-4.9) mg/dl Magnesium (1.8-2.4) mg/dl Total Bilirubin (0.2-1) mg/dl AST (15-37) U/L ALT (12-78) U/L Alkaline Phosphatase (45-117) U/L Troponin I (0-0.045) ng/ml Total Protein (6.4-8.2) gm/dl Albumin (3.4-5.0) gm/dl Globulin (2.5-4.0) gm/dl Albumin/Globulin Ratio (0.9-2) Lipase (73-393) U/L Urine Color Yellow Urine Appearance Clear (Clear) Urine pH 5.5 (4.5-7.5) Ur Specific [place] 1.010 (1.000-1.030) Urine Protein Negative (Negative) Urine Glucose (UA) Negative (Negative) Urine Ketones Negative (Negative) Urine Blood Negative (Negative) Urine Nitrite Negative (Negative) Urine Bilirubin Negative (Negative) Urine Urobilinogen Negative (Negative) Ur Leukocyte Esterase Negative (Negative) 03/24/20 Range/Units 20:50 WBC (4.8-10.8) K/uL RBC (4.2-5.4) M/uL Hgb (12.0-16.0) g/dL Hct (37-47) % MCV (80-100) fL MCH (25-34) pg MCHC (32-36) g/dL RDW Std Deviation (36.4-46.3) fL RDW Coeff of Kelli (11.5-14.5) % Plt Count (130-400) K/uL MPV (7.4-10.4) fL Immature Gran % (Auto) % Neut % (Auto) % Lymph % (Auto) % [place] % (Auto) % Eos % (Auto) % Baso % (Auto) % Neut # (Auto) (1.4-6.5) K/uL Lymph # (Auto) (1.2-3.4) K/uL [place] # (Auto) (0.11-0.59) K/uL Eos # (Auto) (0-0.5) K/uL Baso # (Auto) (0-0.2) K/uL Immature Gran # (Auto) (0.00-0.02) K/uL Hypochromasia PT (9.0-12.0) Seconds INR (0.9-1.1) APTT (21.0-31.0) Seconds PTT Ratio Sodium 144 (136-145) mmol/L Potassium 3.4 L (3.5-5.1) mmol/L Chloride 114 H (98-107) mmol/L Carbon Dioxide 25 (21-32) mmol/L Anion Gap 5.0 (3-11) BUN 10 (7-18) mg/dl Creatinine 0.74 (0.6-1.2) mg/dl Est Cr Clr Drug Dosing 113.8 ml/min Est GFR ( Amer) 111.0 Est GFR (Non-Af Amer) 95.8 BUN/Creatinine Ratio 13.2 (10-20) Glucose 56 L (70-99) mg/dl Calcium 8.7 (8.5-10.1) mg/dl Phosphorus 3.6 (2.5-4.9) mg/dl Magnesium 2.4 (1.8-2.4) mg/dl Total Bilirubin 0.5 (0.2-1) mg/dl AST 10 L (15-37) U/L ALT 15 (12-78) U/L Alkaline Phosphatase 99 (45-117) U/L Troponin I < 0.015 (0-0.045) ng/ml Total Protein 6.7 (6.4-8.2) gm/dl Albumin 3.4 (3.4-5.0) gm/dl Globulin 3.3 (2.5-4.0) gm/dl Albumin/Globulin Ratio 1.0 (0.9-2) Lipase 1156 H (73-393) U/L Urine Color Urine Appearance (Clear) Urine pH (4.5-7.5) Ur Specific [place] (1.000-1.030) Urine Protein (Negative) Urine Glucose (UA) (Negative) Urine Ketones (Negative) Urine Blood (Negative) Urine Nitrite (Negative) Urine Bilirubin (Negative) Urine Urobilinogen (Negative) Ur Leukocyte Esterase (Negative) Administered Medications Baclofen (Baclofen 10 Mg Tab) 10 mg PO BID BRENDAN Stop: 04/24/20 02:24 Last Admin: 03/25/20 08:41 Dose: 10 mg Documented by: [id number] Admin: 03/25/20 03:54 Dose: 10 mg Documented by: [id number] Duloxetine HCl (Duloxetine Hcl 60 Mg Cap) 60 mg PO DAILY BRENDAN Stop: 04/24/20 08:59 Last Admin: 03/25/20 08:41 Dose: 60 mg Documented by: [id number] Enoxaparin Sodium (Enoxaparin Inj 40 Mg/0.4 Ml Syr) 40 mg SQ QAM BRENDAN Stop: 04/24/20 08:59 Last Admin: 03/25/20 08:42 Dose: 40 mg Documented by: [id number] Gabapentin (Gabapentin 600 Mg Tab) 600 mg PO HS PRN PRN Reason: Sleep Stop: 04/24/20 01:43 Last Admin: 03/25/20 08:41 Dose: 600 mg Documented by: [id number] Lactated Ringer's (Lr) 1,000 mls @ 200 mls/hr IV .Q5H BRENDAN Stop: 03/26/20 04:59 Last Admin: 03/25/20 10:21 Dose: 100 mls/hr Documented by: [id number] Infusion: 03/25/20 10:20 Dose: 100 mls/hr Documented by: [id number] Admin: 03/25/20 05:09 Dose: 200 mls/hr Documented by: [id number] Ketorolac Tromethamine (Ketorolac Tromethamine 15 Mg/Ml Vial) 15 mg IV Q6H PRN PRN Reason: Pain Stop: 03/29/20 23:50 Last Admin: 03/25/20 10:19 Dose: 15 mg Documented by: [id number] Admin: 03/25/20 00:48 Dose: 15 mg Documented by: [id number] Oxycodone HCl (Oxycodone Hcl Ir 5 Mg Tab (Immediate Release)) 5 - 10 mg PO QID PRN PRN Reason: Pain Stop: 04/08/20 02:22 Last Admin: 03/25/20 10:19 Dose: 10 mg Documented by: [id number] Admin: 03/25/20 02:58 Dose: 10 mg Documented by: [id number] Tramadol HCl (Tramadol Hcl 50 Mg Tablet) 25 - 50 mg PO Q4H PRN PRN Reason: Pain Stop: 04/23/20 23:48 Last Admin: 03/25/20 14:47 Dose: 50 mg Documented by: [id number] Admin: 03/25/20 08:41 Dose: 50 mg Documented by: [id number] Admin: 03/25/20 01:08 Dose: 50 mg Documented by: [id number] Discontinued Medications Sodium Chloride (Nss) 500 mls @ 999 mls/hr IV .Q31M ONE Stop: 03/24/20 21:40 Last Infusion: 03/24/20 22:16 Dose: 0 mls/hr Documented by: [id number] Admin: 03/24/20 21:50 Dose: 999 mls/hr Documented by: [id number] Acetaminophen (Ofirmev) 1,000 mg in 100 mls @ 400 mls/hr IV NOW STA Stop: 03/24/20 21:24 Last Infusion: 03/24/20 22:16 Dose: 0 mls/hr Documented by: [id number] Admin: 03/24/20 21:50 Dose: 400 mls/hr Documented by: [id number] Thiamine HCl 100 mg/ Syringe 10 mls @ 2 mls/min IV NOW STA Stop: 03/24/20 23:57 Last Admin: 03/25/20 00:48 Dose: 2 mls/min Documented by: [id number] Dextrose/Lactated Ringer's (D5w And Lactated Ringers) 1,000 mls @ 200 mls/hr IV .Q5H ONE Stop: 03/25/20 04:51 Last Infusion: 03/25/20 05:19 Dose: 0 mls/hr Documented by: [id number] Admin: 03/25/20 02:54 Dose: 200 mls/hr Documented by: [id number] Ioversol (Ioversol 100ml) 94 ml IV ONCE ONE Stop: 03/24/20 22:18 Last Admin: 03/24/20 22:17 Dose: 94 ml Documented by: [id number] Ketorolac Tromethamine (Ketorolac Tromethamine 15 Mg/Ml Vial) 15 mg IV NOW ONE Stop: 03/25/20 02:24 Last Admin: 03/25/20 03:54 Dose: 15 mg Documented by: [id number] Potassium Chloride (Potassium Chloride 20 Meq Tabcr) 40 meq PO NOW STA Stop: 03/24/20 23:50 Last Admin: 03/25/20 00:48 Dose: 40 meq Documented by: [id number] Discharge Plan Visit Data Chief Complaint: Flank Pain Stated Complaint: LEFT SIDE FLANK PAIN ED Provider: Sunil Roegrs Discharge Problem: Pancreatitis, Hypokalemia, Left upper quadrant abdominal pain Patient Disposition: Admitted As Inpatient Discharge Instructions Interventions: ED Discharge Assessment Last Done: 03/25/20 01:20 Discharge Problem: Pancreatitis Qualifiers: Chronicity: acute Pancreatitis type: other Acute pancreatitis complication: u nspecified Qualified Code(s): K85.80 - Other acute pancreatitis without necrosis or infection
[2020-03-24] MEDS ORDERED: ACETAMINOPHEN 1,000 MG/100 ML VIAL IV STA (21:10)
[2020-03-24] MEDS ORDERED: SODIUM CHLORIDE 0.9% 500 ML IV ONE (21:10)
[2020-03-24 21:38] LABS: Partial Thromboplastin Ratio 0.9; Partial Thromboplastin Time 25.4 Seconds (21.0-31.0); Prothrombin Time 10.3 Seconds (9.0-12.0)
[2020-03-24 21:40] LABS: Alanine Aminotransferase 15 U/L (12-78); Albumin Level 3.4 gm/dl (3.4-5.0); Aspartate Aminotransferase 10 U/L (15-37); BUN Creatinine Ratio 13.2 (10-20); Blood Urea Nitrogen 10 mg/dl (7-18); Calcium 8.7 mg/dl (8.5-10.1); Carbon Dioxide 25 mmol/L (21-32); Chloride 114 mmol/L (98-107); Creatinine Clr Calc Pharmacy 113.8 ml/min; Est GFR (Non-African American) 95.8; Glucose 56 mg/dl (70-99); Lipase 1156 U/L (73-393); Magnesium 2.4 mg/dl (1.8-2.4); Potassium 3.4 mmol/L (3.5-5.1); Sodium 144 mmol/L (136-145)
[2020-03-24 21:45] LABS: Alkaline Phosphatase 99 U/L (45-117); Bilirubin,Total 0.5 mg/dl (0.2-1); Globulin 3.3 gm/dl (2.5-4.0); Phosphorus 3.6 mg/dl (2.5-4.9); Total Protein 6.7 gm/dl (6.4-8.2); Troponin I < 0.015 ng/ml (0-0.045)
[2020-03-24 21:51] LABS: Appearance Urine Clear (Clear); Bilirubin Urine Negative (Negative); Blood Urine Negative (Negative); Color Urine Yellow; Glucose Urine UA Negative (Negative); Ketones Urine Negative (Negative); Leukocyte Esterase Urine Negative (Negative); Nitrite Urine Negative (Negative); Protein Urine Negative (Negative); Urobilinogen Urine Negative (Negative); pH Urine 5.5 (4.5-7.5)
--- NOTE | 2020-03-24 22:12 | XRay Report ---
SINGLE VIEW CHEST CLINICAL HISTORY: Atypical chest pain. FINDINGS: An AP, portable, upright chest radiograph is compared to study dated 03/17/2020. Correlation is made with chest CT dated 03/15/2020. The examination is degraded by portable technique and patient rotation. The heart is top normal for projection. The pulmonary vasculature is noncongested. There is no airspace consolidation typical for pneumonia. Question a small left pleural effusion. No pneum othorax is seen. The bony thorax is grossly intact. Vascular coils are seen in the upper abdomen. IMPRESSION: 1. There is no airspace consolidation typical for pneumonia. 2. Question a small left pleural effusion. ACT 112: Negative or not required by law. Electronically signed by: Juan Rios M.D. 03/24/2020 10:10 PM
[2020-03-24] MEDS ORDERED: IOVERSOL 100ml IV ONE (22:17)
[2020-03-24 22:28] LABS: Hemoglobin 9.6 g/dL (12.0-16.0); Mean Corpuscular Hemoglobin 21.1 pg (25-34); Mean Corpuscular Hgb Conc 28.2 g/dL (32-36); Mean Corpuscular Volume 74.7 fL (80-100); Mean Platelet Volume 9.3 fL (7.4-10.4); Platelet Count 760 K/uL (130-400); RDW Coefficient of Variation 18.3 % (11.5-14.5); RDW Standard Deviation 49.6 fL (36.4-46.3); Red Blood Count 4.55 M/uL (4.2-5.4); White Blood Count 6.87 K/uL (4.8-10.8)
--- NOTE | 2020-03-24 22:32 | CT Scan Report ---
CT SCAN OF THE ABDOMEN AND PELVIS WITH IV CONTRAST CLINICAL HISTORY: Left flank pain. COMPARISON STUDY: Abdominal CT dated 07/24/2018. TECHNIQUE: Following the IV administration of 94 cc of Optiray 320, CT scan of the abdomen and pelvi s is performed from the lung bases to the proximal femora. Images are reviewed in the axial, sagittal , and coronal planes. IV contrast was administered without complication. A dose lowering technique wa s utilized adhering to the principles of ALARA. CT DOSE: 818.73 mGy.cm FINDINGS: Lung bases: The heart is normal in size and without pericardial effusion. There is trace left pleural effusion. The lung bases are otherwise clear noting bibasilar scarring/atelectasis. Liver: The contrast-enhanced liver is enlarged, measuring 20.6 cm in length. The liver is otherwise n ormal in contour and attenuation. There is no intrahepatic biliary ductal dilatation. The hepatic vei ns and portal veins are patent. Gallbladder: Surgically absent noting clips in the gallbladder fossa. 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 There is trace re sidual subcapsular fluid seen laterally on image #79. This measures up to 1 cm in thickness. No acute perfusion anomalies are identified. Pancreas: The pancreas is normal in size and attenuation. The parenchyma enhances homogeneously. Ques tion mild stranding around the pancreatic head and body. No peripancreatic fluid collection is identi fied. The splenic vein appears patent. Adrenal glands: Unremarkable. Kidneys: The contrast enhanced kidneys are normal in size and without hydronephrosis. The kidneys enh ance symmetrically. Abdominal vasculature: The abdominal aorta is normal in course and caliber. Vascular coils are again seen along the course of the splenic artery. Stomach and bowel: There is a small hiatal hernia. Postoperative changes consistent with a history of Andry-en-Y gastric bypass surgery. No bowel obstruction is identified. The appendix is well-visualiz ed and normal. Peritoneum: There is no intraperitoneal free air or abdominal ascites. There are numerous small fat-c ontaining ventral hernias. Lymphadenopathy: None. Pelvic viscera: The bladder is normal as visualized. The uterus is surgically absent. No adnexal lesi on is seen. Skeletal structures: No lytic or blastic lesions are seen. IMPRESSION: 1. Question mild stranding around the pancreatic head and body. Correlate clinically and with serum a mylase/lipase levels for evidence of mild acute pancreatitis. 2. Trace left pleural effusion. 3. 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 There is trace resi dual subcapsular fluid which has significantly decreased in size from 07/24/2018. 4. Hepatomegaly. 5. Postoperative change is consistent with a history of Andry-en-Y gastric bypass surgery. There is no bowel obstruction. 6. Additional findings as above. ACT 112: Negative or not required by law. Electronically signed by: Juan Rios M.D. 03/24/2020 10:30 PM
[2020-03-24 23:00] LABS: Basophils # (auto) 0.03 K/uL (0-0.2); Basophils % (auto) 0.4 %; Eosinophils # (auto) 0.18 K/uL (0-0.5); Eosinophils % (auto) 2.6 %; Hypochromasia Present; Immature Granulocytes # (auto) 0.01 K/uL (0.00-0.02); Immature Granulocytes % (auto) 0.1 %; Lymphocytes # (auto) 1.44 K/uL (1.2-3.4); Monocytes # (auto) 0.65 K/uL (0.11-0.59); Monocytes % (auto) 9.5 %; Neutrophils # (auto) 4.56 K/uL (1.4-6.5); Neutrophils % (auto) 66.4 %
[2020-03-24] MEDS ORDERED: POTASSIUM CHLORIDE 20 MEQ TABCR PO STA (23:49)
[2020-03-24] MEDS ORDERED: PROMETHAZINE HCL 12.5 MG in SODIUM CHLORIDE 0.9% 50 ML IV PRN (23:52)
[2020-03-24] MEDS ORDERED: D5W AND LACTATED RINGERS 1,000 ML IV ONE (23:52)
[2020-03-24] MEDS ORDERED: THIAMINE HCL 100 MG in SYRINGE 9 ML IV STA (23:53)
[2020-03-25] MEDS: KETOROLAC TROMETHAMINE 15 MG/ML VIAL IV PRN ×4 (00:48→22:06)
--- NOTE | 2020-03-25 00:50 | History & Physical Report ---
Date of Service March 25, 2020 Assessment & Plan (1) Pancreatitis: Unclear etiology ? New medications (doxycycline and lisinopril) Hypokalemia mood disorder, at baseline opiate abuse as per records chronic anemia, hemoglobin better than baseline likely 17 concentration past tobacco abuse GMF Bowel rest, IVF Analgesia (judicious narcotic use given history of opiate abuse as per records) Hold lisinopril and doxycycline for now given association with pancreatitis although somewhat rare. Utilize amlodipine if with subsequent BP elevation. GI consult re: pancreatitis of unclear etiology DVT prophylaxis with Lovenox subcu Full code Text document was generated using [email or web address] recognition software. It may contain grammatical or spelling errors. Kindly contact undersigned for clarification of any documentation item in question. History of Present Illness Chief Complaint: Left-sided abdominal, flank pain Primary Care Provider: Drew Caicedo MD History obtained from patient and records. Medical history significant for mood disorder, personality disorder, PTSD as per records, opiate abuse as per records, chronic anemia (baseline hemoglobin 8), hidradenitis suppurativa, common variable immunodeficiency as per records, past tobacco abuse. Recent confinement last week for respiratory failure attributed to non cardiogenic pulmonary edema. 2D echo report as follows : No significant valvular pathology. Left ventricle are normal in size. EF 60 to 65%. RV systolic function is normal. Left and right atrial sizes normal. Patient discharged on doxycycline for respiratory tract infection and lisinopril for hypertension during confinement. After a chips dinner last night, patient experience achy left-sided abdominal pain going to the flank with nausea. No emesis. No fever, no chills. No prior episodes. Denies recent EtOH intake. Patient complaining of intractable pain at the ER. Medical History as above Surgical History : Cholecystectomy, gastric bypass, sweat gland removal, tonsillectomy/adenectomy Family History : unknown as patient was adopted. Personal/Social history : Past tobacco abuse, no EtOH intake, disabled Allergies Allergy/AdvReac Type Severity Reaction Status Date / Time poison stephen extract Allergy Intermediate Rash and Verified 03/24/20 23:20 blisters cephalexin AdvReac Severe Nausea,vomiting Verified 03/24/20 23:20 and diarrhea Home Medications Home Medications Medication Instructions Recorded Confirmed Type cyanocobalamin (vitamin B-12) 1,000 mcg IM MONTHLY 01/27/19 03/24/20 History ibuprofen [Advil] 400 mg PO Q6H PRN 04/04/19 03/24/20 History acetaminophen [Tylenol Extra 1,000 mg PO Q6H PRN 05/31/19 03/24/20 History Strength] diclofenac sodium 4 g TOPICAL QID PRN 05/31/19 03/24/20 History lidocaine 1 patch TOPICAL DAILY PRN 01/16/20 03/24/20 History baclofen 10 mg PO BID 03/15/20 03/24/20 History diphenhydramine HCl [Benadryl] 50 mg PO HS PRN 03/15/20 03/24/20 History duloxetine 60 mg PO DAILY 03/15/20 03/24/20 History doxycycline hyclate 100 mg PO BID #6 cap 03/20/20 03/24/20 Rx gabapentin 600 mg PO HS PRN #4 tab 03/20/20 03/24/20 Rx lisinopril 10 mg PO DAILY #30 tab 03/20/20 03/24/20 Rx tramadol 50 mg PO Q6H PRN #4 tab 03/20/20 03/24/20 Rx Past Med/Surg History Medical History Anxiety Avoidant personality disorder Borderline personality disorder Chronic pain of left lower extremity Depression with anxiety Drug use Hidradenitis suppurativa Hirsutism Immunodeficiency disorder Insomnia Low back pain Lymphedema Neuropathy Obesity Peripheral neuropathy Splenic rupture Unspecified asthma Vitamin D deficiency Surgical History H/O gastric bypass H/O: hysterectomy History of shoulder surgery Hx of cholecystectomy Family History Other No significant family history Social History Smoking Status: Former smoker Tobacco Type: Cigarettes Cigarettes Per Day: 20; Smoking End Date: 6 months ago; Second Hand Exposure: No; Hx Alcohol Use: No Hx Substance Use: No Preferred Language: Yi Communication Ability: Effective Visual Impairment: No Limitations Hearing Ability: Normal Bag Tester Required: No Beliefs That Will Affect Care: None marital status: Single Current Living Situation: Spouse Current Living Situation Comment: " I was living with somebody up until this morning." current occupational status: disabled Other Information That Helps Us Care for You: No Feels Safe at Home: Yes Safety Concerns: Feels Safe At This Time Childhood Exposure to Second-Hand Smoke: No caffeine: Yes (coffee 4 cups/day ) during the past year weight has: remained stable Dental Care, Regularly: Yes Physical Activity Frequency: 1-2 Times per Week Seatbelt Use: always Sunscreen Use: Yes Do you think of yourself as: straight/heterosexual Sexual Activity: has never been active Assistive Devices: None Review of Systems Review of Systems: As per HPI, all 10 systems reviewed, all other ROS negative Physical Exam Physical Exam: GENERAL: Comfortable, obese, looks older than stated age, no respiratory distress SKIN: Pallor , warm HEENT: Pale palpebral conjunctivae, no ptosis, dry buccal mucosa NECK : Supple, no tenderness CHEST : CTA, no tenderness HEART : RRR, no obvious murmurs ABDOMEN: Some distention, left side abdominal tenderness EXTREMITIES : No LE swelling/tenderness, no other conspicuous deformities noted NEUROLOGIC : Coherent, no facial asymmetry, no other gross focality Results & Data Results & Data ([facility]) Vital Signs (Past 12 Hours) Vital Signs Temp Pulse Resp BP Pulse Ox 03/24/20 23:30 89 18 127/73 97 03/24/20 23:00 75 16 108/70 95 03/24/20 22:30 78 19 121/75 98 03/24/20 22:00 80 21 131/65 99 03/24/20 21:30 80 19 118/80 100 03/24/20 20:59 83 27 H 128/83 99 03/24/20 20:31 37.0 C 98 H 20 125/74 98 Laboratory Results Laboratory Results WBC 6.87 K/uL (4.8-10.8) 03/24/20 20:50 RBC 4.55 M/uL (4.2-5.4) 03/24/20 20:50 Hgb 9.6 g/dL (12.0-16.0) L 03/24/20 20:50 Hct 34.0 % (37-47) L 03/24/20 20:50 MCV 74.7 fL (80-100) L 03/24/20 20:50 MCH 21.1 pg (25-34) L 03/24/20 20:50 MCHC 28.2 g/dL (32-36) L 03/24/20 20:50 RDW Std Deviation 49.6 fL (36.4-46.3) H 03/24/20 20:50 RDW Coeff of Kelli 18.3 % (11.5-14.5) H 03/24/20 20:50 Plt Count 760 K/uL (130-400) H 03/24/20 20:50 MPV 9.3 fL (7.4-10.4) 03/24/20 20:50 Immature Gran % (Auto) 0.1 % 03/24/20 20:50 Neut % (Auto) 66.4 % 03/24/20 20:50 Lymph % (Auto) 21.0 % 03/24/20 20:50 [place] % (Auto) 9.5 % 03/24/20 20:50 Eos % (Auto) 2.6 % 03/24/20 20:50 Baso % (Auto) 0.4 % 03/24/20 20:50 Neut # (Auto) 4.56 K/uL (1.4-6.5) 03/24/20 20:50 Lymph # (Auto) 1.44 K/uL (1.2-3.4) 03/24/20 20:50 [place] # (Auto) 0.65 K/uL (0.11-0.59) H 03/24/20 20:50 Eos # (Auto) 0.18 K/uL (0-0.5) 03/24/20 20:50 Baso # (Auto) 0.03 K/uL (0-0.2) 03/24/20 20:50 Immature Gran # (Auto) 0.01 K/uL (0.00-0.02) 03/24/20 20:50 Hypochromasia Present 03/24/20 20:50 PT 10.3 Seconds (9.0-12.0) 03/24/20 20:50 INR 1.0 (0.9-1.1) 03/24/20 20:50 APTT 25.4 Seconds (21.0-31.0) 03/24/20 20:50 PTT Ratio 0.9 03/24/20 20:50 Sodium 144 mmol/L (136-145) 03/24/20 20:50 Potassium 3.4 mmol/L (3.5-5.1) L 03/24/20 20:50 Chloride 114 mmol/L (98-107) H 03/24/20 20:50 Carbon Dioxide 25 mmol/L (21-32) 03/24/20 20:50 Anion Gap 5.0 (3-11) 03/24/20 20:50 BUN 10 mg/dl (7-18) 03/24/20 20:50 Creatinine 0.74 mg/dl (0.6-1.2) 03/24/20 20:50 Est Cr Clr Drug Dosing 113.8 ml/min 03/24/20 20:50 Est GFR ( Amer) 111.0 03/24/20 20:50 Est GFR (Non-Af Amer) 95.8 03/24/20 20:50 BUN/Creatinine Ratio 13.2 (10-20) 03/24/20 20:50 Glucose 56 mg/dl (70-99) L 03/24/20 20:50 Calcium 8.7 mg/dl (8.5-10.1) 03/24/20 20:50 Phosphorus 3.6 mg/dl (2.5-4.9) 03/24/20 20:50 Magnesium 2.4 mg/dl (1.8-2.4) 03/24/20 20:50 Total Bilirubin 0.5 mg/dl (0.2-1) 03/24/20 20:50 AST 10 U/L (15-37) L 03/24/20 20:50 ALT 15 U/L (12-78) 03/24/20 20:50 Alkaline Phosphatase 99 U/L (45-117) 03/24/20 20:50 Troponin I < 0.015 ng/ml (0-0.045) 03/24/20 20:50 Total Protein 6.7 gm/dl (6.4-8.2) 03/24/20 20:50 Albumin 3.4 gm/dl (3.4-5.0) 03/24/20 20:50 Globulin 3.3 gm/dl (2.5-4.0) 03/24/20 20:50 Albumin/Globulin Ratio 1.0 (0.9-2) 03/24/20 20:50 Lipase 1156 U/L (73-393) H 03/24/20 20:50 Urine Color Yellow 03/24/20 20:45 Urine Appearance Clear (Clear) 03/24/20 20:45 Urine pH 5.5 (4.5-7.5) 03/24/20 20:45 Ur Specific [place] 1.010 (1.000-1.030) 03/24/20 20:45 Urine Protein Negative (Negative) 03/24/20 20:45 Urine Glucose (UA) Negative (Negative) 03/24/20 20:45 Urine Ketones Negative (Negative) 03/24/20 20:45 Urine Blood Negative (Negative) 03/24/20 20:45 Urine Nitrite Negative (Negative) 03/24/20 20:45 Urine Bilirubin Negative (Negative) 03/24/20 20:45 Urine Urobilinogen Negative (Negative) 03/24/20 20:45 Ur Leukocyte Esterase Negative (Negative) 03/24/20 20:[address] abdomen pelvis: 1. Question mild stranding around the pancreatic head and body. Correlate clinically and with serum amylase/lipase levels for evidence of mild acute pancreatitis. 2. Trace left pleural effusion. 3. 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 There is trace residual subcapsular fluid which has significantly decreased in size from 07/24/2018. 4. Hepatomegaly. 5. Postoperative change is consistent with a history of Andry-en-Y gastric bypass surgery. There is no bowel obstruction. Chest x-ray : 1. There is no airspace consolidation typical for pneumonia. 2. Question a small left pleural effusion. EKG as per my interpretation : Rate 80, NSR, normal axis, T wave abnormalities anteroseptal leads
[2020-03-25] MEDS: traMADol HCL 50 MG TABLET PO PRN ×4 (01:08→19:58)
[2020-03-25] MEDS ORDERED: KETOROLAC TROMETHAMINE 15 MG/ML VIAL IV ONE (02:23)
[2020-03-25] MEDS: oxyCODONE HCL IR 5 MG TAB (IMMEDIATE RELEASE) PO PRN ×3 (02:58→16:27)
[2020-03-25] MEDS: BACLOFEN 10 MG TAB PO SCH ×3 (03:54→19:51)
[2020-03-25] MEDS: LACTATED RINGER'S 1,000 ML IV SCH ×4 (05:09→21:25)
[2020-03-25 06:46] LABS: Hematocrit (blood only) 27.5 % (37-47); Hemoglobin 7.8 g/dL (12.0-16.0); Mean Corpuscular Hemoglobin 21.2 pg (25-34); Mean Corpuscular Hgb Conc 28.4 g/dL (32-36); Mean Corpuscular Volume 74.7 fL (80-100); Mean Platelet Volume 8.7 fL (7.4-10.4); Platelet Count 536 K/uL (130-400); RDW Coefficient of Variation 18.1 % (11.5-14.5); RDW Standard Deviation 49.1 fL (36.4-46.3); Red Blood Count 3.68 M/uL (4.2-5.4); White Blood Count 5.22 K/uL (4.8-10.8)
[2020-03-25 06:47] LABS: Basophils # (auto) 0.02 K/uL (0-0.2); Basophils % (auto) 0.4 %; Eosinophils # (auto) 0.23 K/uL (0-0.5); Eosinophils % (auto) 4.4 %; Hypochromasia Present; Lymphocytes # (auto) 1.52 K/uL (1.2-3.4); Lymphocytes % (auto) 29.1 %; Monocytes # (auto) 0.59 K/uL (0.11-0.59); Monocytes % (auto) 11.3 %; Neutrophils # (auto) 2.86 K/uL (1.4-6.5); Neutrophils % (auto) 54.8 %
[2020-03-25 07:00] LABS: Albumin Level 2.5 gm/dl (3.4-5.0); BUN Creatinine Ratio 14.6 (10-20); Calcium 7.9 mg/dl (8.5-10.1); Creatinine Clr Calc Pharmacy 150.4 ml/min; Est GFR (African American) 127.8; Est GFR (Non-African American) 110.3; Potassium 3.9 mmol/L (3.5-5.1)
[2020-03-25 07:11] LABS: Albumin Globulin Ratio 0.9 (0.9-2); Bilirubin,Total 0.4 mg/dl (0.2-1); Globulin 2.7 gm/dl (2.5-4.0); Total Protein 5.2 gm/dl (6.4-8.2)
[2020-03-25] MEDS: GABAPENTIN 600 MG TAB PO PRN ×2 (08:41→21:27)
[2020-03-25] MEDS: DULoxetine HCL 60 MG CAP PO SCH (08:41)
[2020-03-25] MEDS ORDERED: ENOXAPARIN INJ 40 MG/0.4 ML SYR SQ SCH (09:00)
[2020-03-25 10:53] LABS: Amphetamines+Metham, Urine Neg (Neg); Barbiturates, Urine Neg (Neg); Benzodiazepine, Urine Neg (Neg); Cocaine, Urine Neg (Neg); MDMA (Ecstacy), Urine Neg (Neg); Methadone, Urine Neg (Neg); Opiate, Urine Neg (Neg); Phencyclidine, Urine Neg (Neg)
--- NOTE | 2020-03-25 12:11 | Electrocardiogram Report ---
Test Reason : Blood Pressure : / mmHG Vent. Rate : 080 BPM Atrial Rate : 080 BPM P-R Int : 160 ms QRS Dur : 084 ms QT Int : 370 ms P-R-T Axes : 054 041 033 degrees QTc Int : 426 ms Normal sinus rhythm Poor R wave progression, consider anterior TN vs. lead placement vs. LVH T wave abnormality, consider anterior ischemia Abnormal ECG When compared with ECG of 17-MAR-2020 06:55, T wave amplitude has increased in Lateral leads Confirmed by Ray Villalta ([id number]) on 03/25/2020 12:11:04 PM Referred By: REFERRED SELF Confirmed By:Ray Villalta
--- NOTE | 2020-03-25 13:17 | Gastrointestinal Consultation ---
Date of Consultation March 25, 2020 Assessment & Plan (1) Pancreatitis: (2) Anemia: worsening anemia with pancreatitis of unknown etiology. Recs: --NPO --aggressive IV hydration with LR 250 cc/hr in the first 24 hours at least --plan for EGD to further evaluate anemia (possible anastomotic ulcer or other etiology) tomorrow morning --supportive care, trend H/H, transfuse prn hgb<7 rest as per primary team Thank you for allowing me to participate in the care of this patient History of Present Illness Attending Physician: Alo Pang MD 49 yo female with hx PTSD, chronic anemia, CVID, opiate abuse and recent hospitalization for pneumonia and pulmonary edema here with abdominal pains. lipase noted to be elevated and CT showing findings c/w acute pancreatitis. She notes having severe LUQ abdominal pains going to her back and flank starting last night. Also has had a 14 lbs unintentional weight loss over the last 2 months and notes a decreased appetite this week. Otherwise no nausea, vomiting nor other complaints at this time. Hgb noted to be worsening, now 7.8 today. She has had previous CCY and Andry en Y gastric bypass. Denies ETOH abuse. labs reviewed. Allergies Allergy/AdvReac Type Severity Reaction Status Date / Time poison stephen extract Allergy Intermediate Rash and Verified 03/24/20 23:20 blisters cephalexin AdvReac Severe Nausea,vomiting Verified 03/24/20 23:20 and diarrhea Home Medications Home Medications Medication Instructions Recorded Confirmed Type cyanocobalamin (vitamin B-12) 1,000 mcg IM MONTHLY 01/27/19 03/24/20 History ibuprofen [Advil] 400 mg PO Q6H PRN 04/04/19 03/24/20 History acetaminophen [Tylenol Extra 1,000 mg PO Q6H PRN 05/31/19 03/24/20 History Strength] diclofenac sodium 4 g TOPICAL QID PRN 05/31/19 03/24/20 History lidocaine 1 patch TOPICAL DAILY PRN 01/16/20 03/24/20 History baclofen 10 mg PO BID 03/15/20 03/24/20 History diphenhydramine HCl [Benadryl] 50 mg PO HS PRN 03/15/20 03/24/20 History duloxetine 60 mg PO DAILY 03/15/20 03/24/20 History doxycycline hyclate 100 mg PO BID #6 cap 03/20/20 03/24/20 Rx gabapentin 600 mg PO HS PRN #4 tab 03/20/20 03/24/20 Rx lisinopril 10 mg PO DAILY #30 tab 03/20/20 03/24/20 Rx tramadol 50 mg PO Q6H PRN #4 tab 03/20/20 03/24/20 Rx Patient History Medical History Anxiety Avoidant personality disorder Borderline personality disorder Chronic pain of left lower extremity Depression with anxiety Drug use Hidradenitis suppurativa Hirsutism Immunodeficiency disorder Insomnia Low back pain Lymphedema Neuropathy Obesity Peripheral neuropathy Splenic rupture Unspecified asthma Vitamin D deficiency Surgical History H/O gastric bypass H/O: hysterectomy History of shoulder surgery Hx of cholecystectomy Family History Other No significant family history Social History Smoking Status: Former smoker Tobacco Type: Cigarettes Cigarettes Per Day: 20; Smoking End Date: 6 months ago; Second Hand Exposure: No; Hx Alcohol Use: No Hx Substance Use: No Preferred Language: [place] Communication Ability: Effective Visual Impairment: No Limitations Hearing Ability: Normal Textile Converter Required: No Beliefs That Will Affect Care: None marital status: Single Current Living Situation: Spouse Current Living Situation Comment: " I was living with somebody up until this morning." current occupational status: disabled Other Information That Helps Us Care for You: No Feels Safe at Home: Yes Safety Concerns: Feels Safe At This Time Childhood Exposure to Second-Hand Smoke: No caffeine: Yes (coffee 4 cups/day ) during the past year weight has: remained stable Dental Care, Regularly: Yes Physical Activity Frequency: 1-2 Times per Week Seatbelt Use: always Sunscreen Use: Yes Do you think of yourself as: straight/heterosexual Sexual Activity: has never been active Assistive Devices: None Review of Systems Constitutional: no fever, no chills and no weight loss Eyes: as per Subjective / HPI Ear, Nose, Mouth, Throat: as per Subjective / HPI Respiratory: no dyspnea and no dyspnea on exertion Cardiovascular: no chest pain and no palpitations Gastrointestinal: as per Subjective / HPI Musculoskeletal: no joint pain and no swelling Integumentary: no rash and no lesions Neurologic: no numbness and no paresthesia Psychiatric: no depression and no anxiety Endocrine: no fatigue Hematologic / Lymphatic: no easy bleeding and no easy bruising Physical Exam Constitutional: WD/WN, vitals as above Eyes: EOM intact bilaterally Neck: normal visual inspection Respiratory: normal respiratory effort, lungs clear to auscultation Cardiovascular: RRR, no murmur, no edema Gastrointestinal (Abdomen): Inspection/Auscultation: abdomen normal to inspection; abdomen not distended Percussion/Palpation: + abdomen tender (moderate LUQ ) and abdomen soft; no hepatosplenomegaly Musculoskeletal: Extremities: no cyanosis Gait: normal gait Skin: no rashes, warm and dry Neurologic: moves all extremities Psychiatric: A+Ox3, euthymic affect Results & Data ([facility]) Vital Signs (Past 12 Hours) Vital Signs Temp Pulse Resp BP BP Pulse Ox 03/25/20 07:27 36.7 C 69 16 111/72 99 03/25/20 01:30 36.5 C 70 16 137/83 95 PG Care Time/CCT Total # of Minutes Spent Total Time Spent with Patient: Total time spent is greater than 50% in coordination of care (as documented) at patient's floor/unit and/or counseling patient: Coding Level of Care Code 34391 Inpt Consult Level 4 Diagnoses Pancreatitis K85.90 Anemia D64.9
--- NOTE | 2020-03-25 17:25 | Hospitalist Progress Note ---
Date of Service March 25, 2020 Assessment & Plan (1) Pancreatitis: Unclear etiology ? New medications (doxycycline and lisinopril) --Abdominal pain improving --Check abdominal ultrasound to rule out choledocholithiasis Patient denies alcohol intake --Continue IV LR to 50 cc/h Continue PRN analgesics Anemia --Hemoglobin decreased from 8.6-7.8 --Check anemia panel EGD tomorrow Hypertension -- vHold lisinopril and doxycycline for now given association with pancreatitis although somewhat rare. Hypokalemia --Resolved mood disorder, at baseline opiate abuse as per records DVT prophylaxis SCDs only, hold Lovenox in light of possible GI bleed causing anemia Full code Position Anticipate discharge to home when medically stable and cleared by GI Admission and Anticipated Discharge Date Admission Date: March 25, 2020 Subjective Follow-up for acute pancreatitis Seen resting in bed, comfortable, not in distress Patient's significant other at the bedside ANTONIO Carter also at the bedside throughout whole encounter States abdominal pain is improving today Tolerating clear liquid diet Denies shortness of breath, chest pain, palpitations, nausea vomiting No fevers or chills Denies other symptoms Review of Systems Review of Systems: All systems reviewed & are unremarkable except as noted in Subjective Physical Exam Physical Exam: General- oriented x 3, not in distress, speaks in sentences with no effort or accessory muscle use Head- atraumatic Eyes- PERRL, EOMI, anicteric ENT- oropharynx clear Neck- supple, no JVD, no adenopathy, no thyromegaly; carotids +2/2, no bruits appreciated Lungs- clear to auscultation bilaterally, no rales/wheezes Heart- normal rate, regular rhythm; no murmur, no gallop, no rub appreciated Abdomen- normal bowel sounds, nondistended, soft, nontender, no masses or hepatosplenomegaly Extremities- no pretibial edema, no calf tenderness; peripheral pulses intact Neuro- alert, oriented x 3; CN 2-12 grossly intact; motor 5/5 bilaterally;sensation 100% on all extremities; no other gross focal neurologic deficits Skin- warm & dry Results & Data Results & Data ([facility]) Vital Signs (Past 12 Hours) Vital Signs Temp Pulse Resp BP Pulse Ox 03/25/20 15:03 36.8 C 68 16 127/73 97 03/25/20 07:27 36.7 C 69 16 111/72 99 Laboratory Results Laboratory Results - last 24 hr 03/24/20 03/24/20 03/24/20 20:45 20:50 20:50 WBC 6.87 RBC 4.55 Hgb 9.6 L Hct 34.0 L MCV 74.7 L MCH 21.1 L MCHC 28.2 L RDW Std Deviation 49.6 H RDW Coeff of Kelli 18.3 H Plt Count 760 H MPV 9.3 Immature Gran % (Auto) 0.1 Neut % (Auto) 66.4 Lymph % (Auto) 21.0 [place] % (Auto) 9.5 Eos % (Auto) 2.6 Baso % (Auto) 0.4 Neut # (Auto) 4.56 Lymph # (Auto) 1.44 [place] # (Auto) 0.65 H Eos # (Auto) 0.18 Baso # (Auto) 0.03 Immature Gran # (Auto) 0.01 Hypochromasia Present PT 10.3 INR 1.0 APTT 25.4 PTT Ratio 0.9 Sodium Potassium Chloride Carbon Dioxide Anion Gap BUN Creatinine Est Cr Clr Drug Dosing Est GFR ( Amer) Est GFR (Non-Af Amer) BUN/Creatinine Ratio Glucose Calcium Phosphorus Magnesium Total Bilirubin AST ALT Alkaline Phosphatase Troponin I Total Protein Albumin Globulin Albumin/Globulin Ratio Lipase Urine Color Yellow Urine Appearance Clear Urine pH 5.5 Ur Specific [place] 1.010 Urine Protein Negative Urine Glucose (UA) Negative Urine Ketones Negative Urine Blood Negative Urine Nitrite Negative Urine Bilirubin Negative Urine Urobilinogen Negative Ur Leukocyte Esterase Negative Urine Opiates Screen Ur Methadone, Qual Urine Barbiturates Ur Phencyclidine (PCP) U Amphetamin/Meth Scrn MDMA (Ecstasy) Screen U Benzodiazepines Scrn Ur Cocaine Metabolite U Marijuana (THC) Screen Ethyl Alcohol mg/dL COVID-19 Eval Order SARS-CoV-2, RNA, NAAT 03/24/20 03/25/20 03/25/20 20:50 06:05 06:05 WBC 5.22 RBC 3.68 L Hgb 7.8 L Hct 27.5 L MCV 74.7 L MCH 21.2 L MCHC 28.4 L RDW Std Deviation 49.1 H RDW Coeff of Kelli 18.1 H Plt Count 536 H MPV 8.7 Immature Gran % (Auto) 0.0 Neut % (Auto) 54.8 Lymph % (Auto) 29.1 [place] % (Auto) 11.3 Eos % (Auto) 4.4 Baso % (Auto) 0.4 Neut # (Auto) 2.86 Lymph # (Auto) 1.52 [place] # (Auto) 0.59 Eos # (Auto) 0.23 Baso # (Auto) 0.02 Immature Gran # (Auto) 0.00 Hypochromasia Present PT INR APTT PTT Ratio Sodium 144 143 Potassium 3.4 L 3.9 Chloride 114 H 114 H Carbon Dioxide 25 26 Anion Gap 5.0 3.0 BUN 10 8 Creatinine 0.74 0.56 L Est Cr Clr Drug Dosing 113.8 150.4 Est GFR ( Amer) 111.0 127.8 Est GFR (Non-Af Amer) 95.8 110.3 BUN/Creatinine Ratio 13.2 14.6 Glucose 56 L 74 Calcium 8.7 7.9 L Phosphorus 3.6 Magnesium 2.4 Total Bilirubin 0.5 0.4 AST 10 L 7 L ALT 15 11 L Alkaline Phosphatase 99 77 Troponin I < 0.015 Total Protein 6.7 5.2 L D Albumin 3.4 2.5 L Globulin 3.3 2.7 Albumin/Globulin Ratio 1.0 0.9 Lipase 1156 H Urine Color Urine Appearance Urine pH Ur Specific [place] Urine Protein Urine Glucose (UA) Urine Ketones Urine Blood Urine Nitrite Urine Bilirubin Urine Urobilinogen Ur Leukocyte Esterase Urine Opiates Screen Ur Methadone, Qual Urine Barbiturates Ur Phencyclidine (PCP) U Amphetamin/Meth Scrn MDMA (Ecstasy) Screen U Benzodiazepines Scrn Ur Cocaine Metabolite U Marijuana (THC) Screen Ethyl Alcohol mg/dL COVID-19 Eval Order SARS-CoV-2, RNA, NAAT 03/25/20 03/25/20 03/25/20 06:05 10:03 14:40 WBC RBC Hgb Hct MCV MCH MCHC RDW Std Deviation RDW Coeff of Kelli Plt Count MPV Immature Gran % (Auto) Neut % (Auto) Lymph % (Auto) [place] % (Auto) Eos % (Auto) Baso % (Auto) Neut # (Auto) Lymph # (Auto) [place] # (Auto) Eos # (Auto) Baso # (Auto) Immature Gran # (Auto) Hypochromasia PT INR APTT PTT Ratio Sodium Potassium Chloride Carbon Dioxide Anion Gap BUN Creatinine Est Cr Clr Drug Dosing Est GFR ( Amer) Est GFR (Non-Af Amer) BUN/Creatinine Ratio Glucose Calcium Phosphorus Magnesium Total Bilirubin AST ALT Alkaline Phosphatase Troponin I Total Protein Albumin Globulin Albumin/Globulin Ratio Lipase Urine Color Urine Appearance Urine pH Ur Specific [place] Urine Protein Urine Glucose (UA) Urine Ketones Urine Blood Urine Nitrite Urine Bilirubin Urine Urobilinogen Ur Leukocyte Esterase Urine Opiates Screen Neg Ur Methadone, Qual Neg Urine Barbiturates Neg Ur Phencyclidine (PCP) Neg U Amphetamin/Meth Scrn Neg MDMA (Ecstasy) Screen Neg U Benzodiazepines Scrn Neg Ur Cocaine Metabolite Neg U Marijuana (THC) Screen Neg Ethyl Alcohol mg/dL < 3.0 COVID-19 Eval [facility] SARS-CoV-2, RNA, NAAT 03/25/20 14:40 WBC RBC Hgb Hct MCV MCH MCHC RDW Std Deviation RDW Coeff of Kelli Plt Count MPV Immature Gran % (Auto) Neut % (Auto) Lymph % (Auto) [place] % (Auto) Eos % (Auto) Baso % (Auto) Neut # (Auto) Lymph # (Auto) [place] # (Auto) Eos # (Auto) Baso # (Auto) Immature Gran # (Auto) Hypochromasia PT INR APTT PTT Ratio Sodium Potassium Chloride Carbon Dioxide Anion Gap BUN Creatinine Est Cr Clr Drug Dosing Est GFR ( Amer) Est GFR (Non-Af Amer) BUN/Creatinine Ratio Glucose Calcium Phosphorus Magnesium Total Bilirubin AST ALT Alkaline Phosphatase Troponin I Total Protein Albumin Globulin Albumin/Globulin Ratio Lipase Urine Color Urine Appearance Urine pH Ur Specific [place] Urine Protein Urine Glucose (UA) Urine Ketones Urine Blood Urine Nitrite Urine Bilirubin Urine Urobilinogen Ur Leukocyte Esterase Urine Opiates Screen Ur Methadone, Qual Urine Barbiturates Ur Phencyclidine (PCP) U Amphetamin/Meth Scrn MDMA (Ecstasy) Screen U Benzodiazepines Scrn Ur Cocaine Metabolite U Marijuana (THC) Screen Ethyl Alcohol mg/dL COVID-19 Eval Order SARS-CoV-2, RNA, NAAT NEGATIVE (1) Pancreatitis Acute pancreatitis complication: unspecified Chronicity: acute Pancreatitis type: other Qualified Code(s): K85.80 - Other acute pancreatitis without necrosis or infection
[2020-03-25] MEDS ORDERED: oxyCODONE HCL IR 5 MG TAB (IMMEDIATE RELEASE) PO PRN (17:27)
[2020-03-26] MEDS: traMADol HCL 50 MG TABLET PO PRN ×6 (00:02→21:58)
[2020-03-26] MEDS: LACTATED RINGER'S 1,000 ML IV SCH ×2 (02:18→07:22)
[2020-03-26] MEDS: KETOROLAC TROMETHAMINE 15 MG/ML VIAL IV PRN ×2 (04:27→17:57)
[2020-03-26 07:51] LABS: Hematocrit (blood only) 27.4 % (37-47); Hemoglobin 7.7 g/dL (12.0-16.0); Mean Corpuscular Hemoglobin 21.1 pg (25-34); Mean Corpuscular Hgb Conc 28.1 g/dL (32-36); Mean Corpuscular Volume 75.1 fL (80-100); Platelet Count 565 K/uL (130-400); RDW Coefficient of Variation 18.2 % (11.5-14.5); RDW Standard Deviation 50.1 fL (36.4-46.3); Red Blood Count 3.65 M/uL (4.2-5.4); White Blood Count 4.15 K/uL (4.8-10.8)
[2020-03-26 08:07] LABS: BUN Creatinine Ratio 10.3 (10-20); Calcium 8.4 mg/dl (8.5-10.1); Creatinine Clr Calc Pharmacy 168.4 ml/min; Est GFR (African American) 132.6; Est GFR (Non-African American) 114.5
[2020-03-26 08:09] LABS: Basophils # (auto) 0.02 K/uL (0-0.2); Basophils % (auto) 0.5 %; Eosinophils # (auto) 0.17 K/uL (0-0.5); Eosinophils % (auto) 4.1 %; Hypochromasia Present; Immature Granulocytes # (auto) 0.01 K/uL (0.00-0.02); Immature Granulocytes % (auto) 0.2 %; Lymphocytes # (auto) 1.96 K/uL (1.2-3.4); Lymphocytes % (auto) 47.2 %; Monocytes # (auto) 0.54 K/uL (0.11-0.59); Neutrophils # (auto) 1.45 K/uL (1.4-6.5); Poikilocytosis Present
[2020-03-26] MEDS: BACLOFEN 10 MG TAB PO SCH ×2 (08:16→21:56)
[2020-03-26] MEDS: DULoxetine HCL 60 MG CAP PO SCH (08:16)
[2020-03-26 08:18] LABS: Ferritin 23.9 ng/ml (8-388)
--- NOTE | 2020-03-26 08:19 | Ultrasound Report ---
US liver CLINICAL HISTORY: pancreatitis, r/o choledocholithiasis COMPARISON STUDY: CT of the abdomen and pelvis March 24, 2020. FINDINGS: There is mild coarsening of hepatic echotexture. Liver echogenicity is mildly increased. No hepatic lesions right identified. The gallbladder is surgically absent. The common bile duct measure s 7 mm in caliber. No common bile duct calculi are identified although the distal common bile duct is obscured. The pancreas is largely obscured on this examination. There is no right hydronephrosis. IMPRESSION: 1. Mild biliary ductal dilatation. This is likely related to previous cholecystectomy. No common bile duct calculi identified although the common bile duct obscured. 2. Fatty infiltration of the liver. 3. Largely obscured pancreas. ACT 112: Negative or not required by law. Electronically signed by: Bobby Mata M.D. 03/26/2020 8:18 AM
[2020-03-26] MEDS ORDERED: LIDOCAINE HCL 2% 2 ML VIAL/AMP(20MG/ML) INFIL ONE (08:34)
[2020-03-26] MEDS ORDERED: PROPOFOL IV EMULSION 10 MG/ML 20 ML VIAL IV ONE ×2 (08:34→09:18)
--- NOTE | 2020-03-26 08:47 | History & Physical Bridge Note ---
Date of Service March 26, 2020 History & Physical Bridge Note I have examined the patient, reviewed the History & Physical and in the interval since the performance of the History & Physical I have noted the following changes of clinical significance: no changes noted Proceed with EGD. risks/benefits and procedure discussed with patient, who agrees to proceed
[2020-03-26] MEDS ORDERED: ATROPINE SULFATE 0.1 MG/ML 10ML SYR IV PRN (08:53)
[2020-03-26] MEDS ORDERED: ePHEDrine sulfate 50 MG/ML AMP IV PRN (08:53)
--- NOTE | 2020-03-26 08:53 | Anesthesiology Consultation ---
Date of Service March 26, 2020 Assessment & Plan Chart Review Chart Review: Acceptable Risk for Surgery and Patient NOT seen in Pre Admission Testing Consults Requested none ASA ASA3 Proposed Anesthesia Anesthesia Type: MAC Risk / Benefits Reviewed With: PT / POA / Parent / Guardian, Accepts Plan and Informed Consent Obtained Additional Comments: covid test neg. History Surgery Operation Date: 03/26/20 09:00 Proposed Procedures p Esophagogastroduodenoscopy - Anastasiya Goetz MD Height/Weight Height: 5 ft 8 in Weight: 98 kg Allergies Allergy/AdvReac Type Severity Reaction Status Date / Time poison stephen extract Allergy Intermediate Rash and Verified 03/24/20 23:20 blisters cephalexin AdvReac Severe Nausea,vomiting Verified 03/24/20 23:20 and diarrhea Medications Home Medications Medication Instructions Recorded Confirmed Last Taken cyanocobalamin (vitamin B-12) 1,000 mcg IM MONTHLY 01/27/19 03/24/20 02/18/20 ibuprofen [Advil] 400 mg PO Q6H PRN 04/04/19 03/24/20 01/16/20 acetaminophen [Tylenol Extra 1,000 mg PO Q6H PRN 05/31/19 03/24/20 01/16/20 Strength] diclofenac sodium 4 g TOPICAL QID PRN 05/31/19 03/24/20 03/15/20 lidocaine 1 patch TOPICAL DAILY PRN 01/16/20 03/24/20 03/13/20 baclofen 10 mg PO BID 03/15/20 03/24/20 03/24/20 diphenhydramine HCl [Benadryl] 50 mg PO HS PRN 03/15/20 03/24/20 03/14/20 duloxetine 60 mg PO DAILY 03/15/20 03/24/20 03/24/20 doxycycline hyclate 100 mg PO BID #6 cap 03/20/20 03/24/20 03/24/20 gabapentin 600 mg PO HS PRN #4 tab 03/20/20 03/24/20 Unknown lisinopril 10 mg PO DAILY #30 tab 03/20/20 03/24/20 03/24/20 tramadol 50 mg PO Q6H PRN #4 tab 03/20/20 03/24/20 Unknown Active Medications Generic Name Dose Route Start Last Admin Trade Name Freq PRN Reason Stop Dose Admin Baclofen 10 mg 10/10/20 02:25 03/26/20 08:16 Baclofen 10 Mg Tab PO 04/24/20 02:24 10 mg BID BRENDAN Administration Duloxetine HCl 60 mg 03/25/20 09:00 03/26/20 08:16 Duloxetine Hcl 60 Mg Cap PO 04/24/20 08:59 60 mg DAILY BRENDAN Administration Enoxaparin Sodium 40 mg 03/25/20 09:00 03/25/20 08:42 Enoxaparin Inj 40 Mg/0.4 Ml Syr SQ 04/24/20 08:59 40 mg QAM BRENDAN Administration Gabapentin 600 mg 03/25/20 01:44 03/25/20 21:27 Gabapentin 600 Mg Tab PO 04/24/20 01:43 600 mg HS PRN Administration Sleep Ketorolac Tromethamine 15 mg 03/24/20 23:51 03/26/20 04:27 Ketorolac Tromethamine 15 Mg/Ml Vial IV 03/29/20 23:50 15 mg Q6H PRN Administration Pain Tramadol HCl 25 - 50 mg 03/24/20 23:49 03/26/20 04:28 Tramadol Hcl 50 Mg Tablet PO 04/23/20 23:48 50 mg Q4H PRN Administration Pain NPO Date Last Intake of Fluids: 03/25/20 Time Last Intake of Fluids: 18:00 Date Last Intake of Solids: 03/24/20 Time Last Intake of Solids: 18:30 Past Medical History Medical History Anxiety Avoidant personality disorder Borderline personality disorder Chronic pain of left lower extremity Depression with anxiety Drug use Hidradenitis suppurativa Hirsutism Immunodeficiency disorder Insomnia Low back pain Lymphedema Neuropathy Obesity Peripheral neuropathy Splenic rupture Unspecified asthma Vitamin D deficiency Exercise / Class Metabolic Activity II 4-5 Yardwork/Stairs/Walk up hill Past Family History Family History Other No significant family history Past Surgical History Surgical History H/O gastric bypass H/O: hysterectomy History of shoulder surgery Hx of cholecystectomy Past Anesthesia History No Hx of Anesthesia Complications and No Family Hx of Anesthesia Complications History of PONV No Hx of PONV and No Hx of Motion Sickness Social History Smoking Status: Former smoker tobacco type: cigarettes Smoking cigarettes per day: 20 Smoking End Date: 6 months ago Hx Alcohol Use: No Hx Substance Use: No Physical Exam Vital Signs Last Vital Signs Temp 36.9 C 03/26/20 07:54 Pulse 75 03/26/20 07:54 Resp 15 03/26/20 07:54 BP 137/86 03/26/20 07:54 Pulse Ox 100 03/26/20 07:54 Constitutional + obese ENMT Mouth: + dentition abnormality and + edentulous Thyromental Distance: > or= 3.5 Finger Breadths Mallampati Class: II Neck normal visual inspection and trachea midline; neck extension not limited Respiratory normal respiratory effort Auscultation: lungs clear to auscultation bilaterally Cardiovascular Rate/Rhythm: regular rate and regular rhythm Heart Sounds: no murmur Vessels: no carotid bruit Musculoskeletal Spine: normal cervical ROM Extremities: extremities normal to inspection Neurologic moves all extremities Motor/Sensory: no sensory deficit Psychiatric Orientation: alert and oriented x 3 Testing Laboratory Results 03/26/20 06:33 03/26/20 06:33 PT 10.3 Seconds (9.0-12.0) 03/24/20 20:50 INR 1.0 (0.9-1.1) 03/24/20 20:50 APTT 25.4 Seconds (21.0-31.0) 03/24/20 20:50 Urine Color Yellow 03/24/20 20:45 Urine Appearance Clear (Clear) 03/24/20 20:45 Urine pH 5.5 (4.5-7.5) 03/24/20 20:45 Ur Specific [place] 1.010 (1.000-1.030) 03/24/20 20:45 Urine Protein Negative (Negative) 03/24/20 20:45 Urine Glucose (UA) Negative (Negative) 03/24/20 20:45 Urine Ketones Negative (Negative) 03/24/20 20:45 Urine Nitrite Negative (Negative) 03/24/20 20:45 Ur Leukocyte Esterase Negative (Negative) 03/24/20 20:45 Electrocardiogram Date: 03/24/20 Findings: + NSR @ (at 80), + NSST changes and + poor R wave progression Echocardiogram Date: 03/17/20 EF: 60% LV Function: normal RWMA: + none Valvular Disease: + no significant valvular disease
--- NOTE | 2020-03-26 09:13 | GI REPORT ---
Patient Name: Minerva Augustin Procedure Date: 03/26/2020 8:49 AM Date of : 1970 Admit Type: Inpatient Age: 49 Gender: Female Attending MD: Jovanni Brown MD Procedure: Upper GI endoscopy Providers: Jovanni Brown MD Referring MD: Alo Pang Indications: Unexplained iron deficiency anemia Medicines: Monitored Anesthesia Care Complications: No immediate complications. Estimated blood loss: None. Estimated Blood Loss: Estimated blood loss: none. Procedure: Pre-Anesthesia Assessment: - Prior Anticoagulants: The patient has taken no previous anticoagulant or antiplatelet agents. - ASA Grade Assessment: II - A patient with mild systemic disease. After obtaining informed consent, the endoscope was passed under direct vision. Throughout the procedure, the patient's blood pressure, pulse, and oxygen saturations were monitored continuously. The Endoscope was introduced through the mouth, and advanced to the second part of duodenum. The upper GI endoscopy was accomplished without difficulty. The patient tolerated the procedure well. Findings: The examined esophagus was normal. Localized mild inflammation characterized by erythema was found in the stomach. Biopsies were taken with a cold forceps for Helicobacter pylori testing. Estimated blood loss: none. The examined duodenum was normal as well the anastomosis from the previous Andry en Y bypass. No evidence of ulcers, blood, nor AVMs. Impression: - Normal esophagus. - Gastritis. Biopsied. - Normal examined duodenum. Recommendation: - Return patient to [facility] for [facility] care. - Clear liquid diet today. - Await pathology results. -will need colonoscopy to further evaluate her anemia Jovanni Brown MD 03/26/2020 9:13:34 AM This report has been signed electronically. Note Initiated On: 03/26/2020 8:49 AM Number of Addenda: 0 I attest to the content of the Intraoperative Record and orders documented therein, exceptions below {[id number]}
--- NOTE | 2020-03-26 09:16 | Procedure Note ---
Procedure Note Date of Service March 26, 2020 brief procedure note EGD findings: gastritis, no bleeding nor ulcers, AVMs. Recs: --clear liquid diet today --golytely prep starting tonight at 6 pm --colonoscopy tomorrow to further evaluate her anemia --f/u path results --rest as per primary team Jovanni Brown MD Gastroenterology Coding
--- NOTE | 2020-03-26 09:33 | Anesthesiology Progress Note ---
Date of Service March 26, 2020 Anesthesia Post Procedure Vital Signs Vital Signs: Temp Pulse Pulse Resp BP Pulse Ox 03/26/20 09:25 69 18 137/68 97 03/26/20 09:17 36.8 C 69 19 132/84 99 03/26/20 07:54 36.9 C 75 15 137/86 100 03/25/20 23:37 36.9 C 74 16 137/90 93 03/25/20 15:03 36.8 C 68 16 127/73 97 Pain Intensity Left Abdomen: Pain Intensity: 6 Transfer of Care Handoff Completed per policy Notes Mental Status: alert / awake / arousable Patient Amnestic to Procedure: Yes Nausea / Vomiting: adequately controlled Pain: adequately controlled Airway Patency, RR, SpO2: stable & adequate BP & HR: stable & adequate Hydration State: stable & adequate Anesthetic Complications: no major complications apparent
[2020-03-26] MEDS: PANTOprazole 40 MG TAB PO SCH (14:05)
[2020-03-26] MEDS: GABAPENTIN 600 MG TAB PO PRN (14:17)
[2020-03-26] MEDS ORDERED: IRON SUCROSE 300 MG in SODIUM CHLORIDE 0.9% 250 ML IV ONE (14:30)
[2020-03-26] MEDS: LAVAGE SOLUTION 4000ML PO SCH (17:57)
[2020-03-26] MEDS ORDERED: LAVAGE SOLUTION 4000ML PO SCH (18:00)
[2020-03-26] MEDS: ACETAMINOPHEN 325 MG TAB PO PRN (19:34)
--- NOTE | 2020-03-26 20:42 | Hospitalist Progress Note ---
Date of Service March 26, 2020 Assessment & Plan (1) Pancreatitis: Unclear etiology ? New medications (doxycycline and lisinopril) --Abdominal pain continues to improve --Abd US: No choledocholithiasis 1. Mild biliary ductal dilatation. This is likely related to previous cholecystectomy. No common bile duct calculi identified although the common bile duct obscured. 2. Fatty infiltration of the liver. 3. Largely obscured pancreas. -- Patient denies alcohol intake -- Continue clear liquid diet Continue PRN analgesics Anemia, iron deficiency ---Iron level 9 --Hemoglobin decreased from 8.6-7.7 --Status post EGD: Gastritis Colonoscopy tomorrow Hypertension --Blood pressure stable -- Hold lisinopril and doxycycline for now given association with pancreatitis although somewhat rare. Hypokalemia --Resolved mood disorder, at baseline opiate abuse as per records DVT prophylaxis SCDs only, hold Lovenox in light of possible GI bleed causing anemia Full code Position Anticipate discharge to home when medically stable and cleared by GI Admission and Anticipated Discharge Date Admission Date: March 25, 2020 Subjective ff up for acute pancreatitis, anemia seen resting in bed, comfortable states abdominal pain is improving Denies nausea/vomiting Reports occasional rectal bleeding secondary to hemorrhoids No other symptoms Review of Systems Review of Systems: All systems reviewed & are unremarkable except as noted in Subjective Physical Exam Physical Exam: General- oriented x 3, not in distress, speaks in sentences with no effort or accessory muscle use Eyes- anicteric Neck- no JVD Lungs- clear breath sounds bilaterally, no rales/wheezes Heart- normal rate, regular rhythm; no murmurs Abdomen- normal bowel sounds, nondistended, soft, nontender Extremities- no pretibial edema, no calf tenderness Neuro- alert, oriented x 3; no gross focal neurologic deficits Skin- warm & dry Results & Data Results & Data ([facility]) Vital Signs (Past 12 Hours) Vital Signs Temp Pulse Pulse Resp BP Pulse Ox 03/26/20 15:11 71 16 130/81 95 03/26/20 09:49 36.7 C 68 16 141/85 H 100 03/26/20 09:35 36.9 C 71 16 136/88 100 03/26/20 09:25 69 18 137/68 97 03/26/20 09:17 36.8 C 69 19 132/84 99 Laboratory Results Laboratory Results - last 24 hr 03/26/20 03/26/20 03/26/20 06:33 06:33 06:33 WBC 4.15 L RBC 3.65 L Hgb 7.7 L Hct 27.4 L MCV 75.1 L MCH 21.1 L MCHC 28.1 L RDW Std Deviation 50.1 H RDW Coeff of Kelli 18.2 H Plt Count 565 H MPV 9.0 Immature Gran % (Auto) 0.2 Neut % (Auto) 35.0 Lymph % (Auto) 47.2 [place] % (Auto) 13.0 Eos % (Auto) 4.1 Baso % (Auto) 0.5 Neut # (Auto) 1.45 Lymph # (Auto) 1.96 [place] # (Auto) 0.54 Eos # (Auto) 0.17 Baso # (Auto) 0.02 Immature Gran # (Auto) 0.01 Hypochromasia Present Poikilocytosis Present Sodium 145 Potassium 4.0 Chloride 114 H Carbon Dioxide 27 Anion Gap 5.0 BUN 5 L Creatinine 0.50 L Est Cr Clr Drug Dosing 168.4 Est GFR ( Amer) 132.6 Est GFR (Non-Af Amer) 114.5 BUN/Creatinine Ratio 10.3 Glucose 75 Calcium 8.4 L Iron 9 L TIBC 248 L Transferrin 214 Ferritin 23.9 Vitamin B12 862 (1) Pancreatitis Acute pancreatitis complication: unspecified Chronicity: acute Pancreatitis type: other Qualified Code(s): K85.80 - Other acute pancreatitis without necrosis or infection
[2020-03-27] MEDS: GABAPENTIN 600 MG TAB PO PRN ×2 (00:32→20:00)
[2020-03-27] MEDS: LAVAGE SOLUTION 4000ML PO SCH (03:20)
[2020-03-27] MEDS: traMADol HCL 50 MG TABLET PO PRN ×4 (03:22→18:08)
[2020-03-27 06:39] LABS: Hematocrit (blood only) 30.5 % (37-47); Hemoglobin 8.7 g/dL (12.0-16.0); Mean Corpuscular Hemoglobin 21.2 pg (25-34); Mean Corpuscular Hgb Conc 28.5 g/dL (32-36); Mean Corpuscular Volume 74.2 fL (80-100); Mean Platelet Volume 9.1 fL (7.4-10.4); Platelet Count 619 K/uL (130-400); RDW Standard Deviation 49.1 fL (36.4-46.3); Red Blood Count 4.11 M/uL (4.2-5.4); White Blood Count 3.53 K/uL (4.8-10.8)
[2020-03-27 07:10] LABS: Basophils # (auto) 0.02 K/uL (0-0.2); Basophils % (auto) 0.6 %; Eosinophils # (auto) 0.16 K/uL (0-0.5); Eosinophils % (auto) 4.5 %; Hypochromasia Present; Monocytes % (auto) 14.2 %; Neutrophils # (auto) 1.65 K/uL (1.4-6.5); Neutrophils % (auto) 46.7 %
[2020-03-27 07:13] LABS: BUN Creatinine Ratio 6.3 (10-20); Calcium 8.3 mg/dl (8.5-10.1); Est GFR (African American) 130.9; Potassium 3.5 mmol/L (3.5-5.1)
--- NOTE | 2020-03-27 08:21 | History & Physical Bridge Note ---
Date of Service March 27, 2020 History & Physical Bridge Note I have examined the patient, reviewed the History & Physical and in the interval since the performance of the History & Physical I have noted the following changes of clinical significance: no changes noted proceed with colonoscopy. risks/benefits and procedure discussed with patient, who agrees to proceed
[2020-03-27] MEDS ORDERED: LIDOCAINE HCL 2% 2 ML VIAL/AMP(20MG/ML) INFIL ONE (08:37)
[2020-03-27] MEDS ORDERED: PROPOFOL IV EMULSION 10 MG/ML 20 ML VIAL IV ONE ×2 (08:37→09:25)
[2020-03-27] MEDS ORDERED: MIDAZOLAM HCL 1 MG/ML 2ML VIAL ONE (08:37)
[2020-03-27] MEDS ORDERED: ONDANSETRON INJ 2 MG/ML 2 ML VIAL IV PRN (08:40)
[2020-03-27] MEDS ORDERED: ePHEDrine sulfate 50 MG/ML AMP IV PRN (08:40)
[2020-03-27] MEDS ORDERED: ONDANSETRON INJ 2 MG/ML 2 ML VIAL ONE (08:40)
[2020-03-27] MEDS ORDERED: ATROPINE SULFATE 0.1 MG/ML 10ML SYR IV PRN (08:40)
--- NOTE | 2020-03-27 08:40 | Anesthesiology Consultation ---
Date of Service March 27, 2020 Assessment & Plan ASA ASA3 Proposed Anesthesia Anesthesia Type: MAC Risk / Benefits Reviewed With: PT / POA / Parent / Guardian, Accepts Plan and Informed Consent Obtained History Surgery Operation Date: 03/26/20 09:00 Proposed Procedures p Esophagogastroduodenoscopy - Anastasiya Goetz MD Operation Date: 03/27/20 17:00 Proposed Procedures p Colonoscopy Dr. Kevin Brown MD Height/Weight Height: 5 ft 8 in Weight: 98 kg Allergies Allergy/AdvReac Type Severity Reaction Status Date / Time poison stephen extract Allergy Intermediate Rash and Verified 03/27/20 08:29 blisters cephalexin AdvReac Severe Nausea,vomiting Verified 03/27/20 08:29 and diarrhea Medications Home Medications Medication Instructions Recorded Confirmed Last Taken cyanocobalamin (vitamin B-12) 1,000 mcg IM MONTHLY 01/27/19 03/24/20 02/18/20 ibuprofen [Advil] 400 mg PO Q6H PRN 04/04/19 03/24/20 01/16/20 acetaminophen [Tylenol Extra 1,000 mg PO Q6H PRN 05/31/19 03/24/20 01/16/20 Strength] diclofenac sodium 4 g TOPICAL QID PRN 05/31/19 03/24/20 03/15/20 lidocaine 1 patch TOPICAL DAILY PRN 01/16/20 03/24/20 03/13/20 baclofen 10 mg PO BID 03/15/20 03/24/20 03/24/20 diphenhydramine HCl [Benadryl] 50 mg PO HS PRN 03/15/20 03/24/20 03/14/20 duloxetine 60 mg PO DAILY 03/15/20 03/24/20 03/24/20 doxycycline hyclate 100 mg PO BID #6 cap 03/20/20 03/24/20 03/24/20 gabapentin 600 mg PO HS PRN #4 tab 03/20/20 03/24/20 Unknown lisinopril 10 mg PO DAILY #30 tab 03/20/20 03/24/20 03/24/20 tramadol 50 mg PO Q6H PRN #4 tab 03/20/20 03/24/20 Unknown Active Medications Generic Name Dose Route Start Last Admin Trade Name Freq PRN Reason Stop Dose Admin Acetaminophen 650 mg 03/25/20 01:44 03/26/20 19:34 Acetaminophen 325 Mg Tab PO 04/24/20 01:43 650 mg Q4H PRN Administration pain/fever Baclofen 10 mg 03/25/20 02:25 03/26/20 21:56 Baclofen 10 Mg Tab PO 04/24/20 02:24 10 mg BID BRENDAN Administration Duloxetine HCl 60 mg 03/25/20 09:00 03/26/20 08:16 Duloxetine Hcl 60 Mg Cap PO 04/24/20 08:59 60 mg DAILY BRENDAN Administration Gabapentin 600 mg 03/25/20 01:44 03/27/20 00:32 Gabapentin 600 Mg Tab PO 04/24/20 01:43 600 mg HS PRN Administration Sleep Ketorolac Tromethamine 15 mg 03/24/20 23:51 03/26/20 17:57 Ketorolac Tromethamine 15 Mg/Ml Vial IV 03/29/20 23:50 15 mg Q6H PRN Administration Pain Pantoprazole Sodium 40 mg 03/26/20 13:30 03/26/20 14:05 Pantoprazole 40 Mg Tab PO 04/25/20 13:29 40 mg QAM BRENDAN Administration Tramadol HCl 25 - 50 mg 03/24/20 23:49 03/27/20 03:22 Tramadol Hcl 50 Mg Tablet PO 04/23/20 23:48 50 mg Q4H PRN Administration Pain NPO Date Last Intake of Fluids: 03/27/20 Time Last Intake of Fluids: 04:30 Last Intake of Fluids Comment: prep Date Last Intake of Solids: 03/24/20 Time Last Intake of Solids: 18:30 Past Medical History Medical History Anxiety Avoidant personality disorder Borderline personality disorder Chronic pain of left lower extremity Depression with anxiety Drug use Hidradenitis suppurativa Hirsutism Immunodeficiency disorder Insomnia Low back pain Lymphedema Neuropathy Obesity Peripheral neuropathy Splenic rupture Unspecified asthma Vitamin D deficiency Exercise / Class Metabolic Activity II 4-5 Yardwork/Stairs/Walk up hill Past Family History Family History Other No significant family history Past Surgical History Surgical History H/O gastric bypass H/O: hysterectomy History of shoulder surgery Hx of cholecystectomy Past Anesthesia History No Hx of Anesthesia Complications and No Family Hx of Anesthesia Complications History of PONV No Hx of PONV and No Hx of Motion Sickness Social History Smoking Status: Former smoker tobacco type: cigarettes Smoking cigarettes per day: 20 Smoking End Date: 6 months ago Hx Alcohol Use: No Hx Substance Use: No Review of Systems denies fever/cough/ colds/ chest pain/ SOB/ JESSICA Constitutional: no fever and no chills Respiratory: no cough and no dyspnea denies JESSICA Cardiovascular: no chest pain and no dyspnea on exertion Physical Exam Vital Signs Last Vital Signs Temp 36.6 C 03/27/20 08:23 Pulse 65 03/27/20 08:23 Resp 18 03/27/20 08:23 BP 158/93 H 03/27/20 08:23 Pulse Ox 100 03/27/20 08:23 ENMT Mouth: no TMJ abnormality and no dentition abnormality Thyromental Distance: > or= 3.5 Finger Breadths Mallampati Class: II Neck neck extension not limited Respiratory normal respiratory effort; no respiratory distress Auscultation: lungs clear to auscultation bilaterally Cardiovascular Rate/Rhythm: regular rate and regular rhythm Neurologic moves all extremities Psychiatric Orientation: alert and oriented x 3 Testing Laboratory Results 03/27/20 05:37 03/27/20 05:37 PT 10.3 Seconds (9.0-12.0) 03/24/20 20:50 INR 1.0 (0.9-1.1) 03/24/20 20:50 APTT 25.4 Seconds (21.0-31.0) 03/24/20 20:50 Urine Color Yellow 03/24/20 20:45 Urine Appearance Clear (Clear) 03/24/20 20:45 Urine pH 5.5 (4.5-7.5) 03/24/20 20:45 Ur Specific [place] 1.010 (1.000-1.030) 03/24/20 20:45 Urine Protein Negative (Negative) 03/24/20 20:45 Urine Glucose (UA) Negative (Negative) 03/24/20 20:45 Urine Ketones Negative (Negative) 03/24/20 20:45 Urine Nitrite Negative (Negative) 03/24/20 20:45 Ur Leukocyte Esterase Negative (Negative) 03/24/20 20:45
--- NOTE | 2020-03-27 09:20 | Anesthesiology Progress Note ---
Date of Service March 27, 2020 Anesthesia Post Procedure Vital Signs Vital Signs: Temp Pulse Pulse Resp BP BP Pulse Ox 03/27/20 09:10 65 16 135/83 97 03/27/20 08:23 36.6 C 65 18 158/93 H 100 03/27/20 07:11 36.7 C 82 16 131/81 96 03/26/20 23:09 36.8 C 67 18 149/90 H 98 03/26/20 15:11 71 16 130/81 95 03/26/20 09:49 36.7 C 68 16 141/85 H 100 03/26/20 09:35 36.9 C 71 16 136/88 100 03/26/20 09:25 69 18 137/68 97 Pain Intensity Left Abdomen: Pain Intensity: 6 Transfer of Care Handoff Completed per policy Notes Mental Status: alert / awake / arousable and participated in evaluation Patient Amnestic to Procedure: Yes Nausea / Vomiting: adequately controlled Pain: adequately controlled Airway Patency, RR, SpO2: stable & adequate BP & HR: stable & adequate Hydration State: stable & adequate Anesthetic Complications: no major complications apparent and Pt Satisfied with anesthetic care
--- NOTE | 2020-03-27 09:38 | GI REPORT ---
Patient Name: Minerva Augustin Procedure Date: 03/27/2020 8:26 AM Date of : 1970 Admit Type: Inpatient Age: 49 Gender: Female Attending MD: Jovanni Brown MD Procedure: Colonoscopy Providers: Jovanni Brown MD Referring MD: Alo Pang Indications: Unexplained iron deficiency anemia Medicines: Monitored Anesthesia Care Complications: No immediate complications. Estimated blood loss: None. Estimated Blood Loss: Estimated blood loss: none. Procedure: Pre-Anesthesia Assessment: - Prior Anticoagulants: The patient has taken no previous anticoagulant or antiplatelet agents. - ASA Grade Assessment: II - A patient with mild systemic disease. After I obtained informed consent, the scope was passed under direct vision. Throughout the procedure, the patient's blood pressure, pulse, and oxygen saturations were monitored continuously. The Colonoscope was introduced through the anus and advanced to the cecum, identified by appendiceal orifice and ileocecal valve. The colonoscopy was performed without difficulty. The patient tolerated the procedure well. The quality of the bowel preparation was fair. Findings: A localized area of moderately erythematous mucosa was found in the ascending colon. Biopsies for histology were taken with a cold forceps from the right colon and left colon for evaluation of microscopic colitis. Estimated blood loss: none. A few small and large-mouthed diverticula were found in the sigmoid colon and descending colon. External hemorrhoids were found. The hemorrhoids were large. Impression: - Preparation of the colon was fair. - Erythematous mucosa in the ascending colon. Biopsied. - Diverticulosis in the sigmoid colon and in the descending colon. - External hemorrhoids. Recommendation: - Return patient to [facility] for ongoing care. - start low residue diet today - Await pathology results. - start anusol cream BID for 2 weeks for external hemorrhoids Jovanni Brown MD 03/27/2020 9:37:41 AM This report has been signed electronically. Note Initiated On: 03/27/2020 8:26 AM Number of Addenda: 0 I attest to the content of the Intraoperative Record and orders documented therein, exceptions below {[id number]}
[2020-03-27] MEDS: BACLOFEN 10 MG TAB PO SCH (10:14)
[2020-03-27] MEDS: PANTOprazole 40 MG TAB PO SCH (10:15)
[2020-03-27] MEDS: DULoxetine HCL 60 MG CAP PO SCH (10:15)
[2020-03-27] MEDS: ACETAMINOPHEN 325 MG TAB PO PRN (10:22)
[2020-03-27] MEDS ORDERED: HYDROCORTISONE HC 2.5% CRM 30GM TUBE EXT ONE (10:47)
--- NOTE | 2020-03-27 18:56 | Hospitalist Progress Note ---
Date of Service March 27, 2020 Assessment & Plan (1) Pancreatitis: Unclear etiology --Abd US: No choledocholithiasis 1. Mild biliary ductal dilatation. This is likely related to previous cholecystectomy. No common bile duct calculi identified although the common bile duct obscured. 2. Fatty infiltration of the liver. 3. Largely obscured pancreas. -- Patient denies alcohol intake -- placed on bowel rest, vigorous IV fluids GI consulted -- Abdominal pain resolved -- advanced low fat, soft diet, NO alcohol patient verbalized understanding and agreement Anemia, iron deficiency ---Iron level 9 -- Hg 8-9 --Status post EGD: Gastritis Status post Colonoscopy: (+) erythema of ascending Colon, diverticulosis, hemorrhoids -- Biopsies from EGD and Colonoscopy: pending GI recommending: Protonix daily Anusol cream x 2 weeks -- given IV Iron ff up with PCP, [facility] in 1 week Hypertension --Blood pressure stable -- Discontinue Lisinopril as BP stable, and given association with pancreatitis although somewhat rare. Hypokalemia --Resolved mood disorder, at baseline opiate abuse as per records d/c home ff up with PCP in 1 week, Clinic to call patient ff up with [facility] in 1-2 weeks Admission and Anticipated Discharge Date Admission Date: March 25, 2020 Subjective ff up for acute pancreatitis seen resting in bed, comfortable, in good spirits s/p Colonoscopy tolerating diet well no abdominal pain, nausea no melena, hematochezia denies chest pain, palpitations, dizziness, SOB no other symptoms Review of Systems Review of Systems: All systems reviewed & are unremarkable except as noted in Subjective Physical Exam Physical Exam: General- oriented x 3, not in distress, speaks in sentences with no effort or accessory muscle use Eyes- anicteric Neck- no JVD Lungs- clear BS BL Heart- normal rate, regular rhythm; no murmurs Abdomen- normal bowel sounds, nondistended, soft, nontender Extremities- no pretibial edema, no calf tenderness Neuro- alert, oriented x 3; no gross focal neurologic deficits Skin- warm & dry Results & Data Results & Data ([facility]) Vital Signs (Past 12 Hours) Vital Signs Temp Pulse Resp BP BP Pulse Ox 03/27/20 15:08 36.5 C 75 16 127/73 97 03/27/20 10:15 36.8 C 72 16 131/73 100 03/27/20 09:40 57 L 18 142/86 H 97 03/27/20 09:25 60 18 134/84 94 03/27/20 09:10 65 16 135/83 97 03/27/20 08:23 36.6 C 65 18 158/93 H 100 03/27/20 07:11 36.7 C 82 16 131/81 96 Laboratory Results Laboratory Results - last 24 hr 03/27/20 03/27/20 05:37 05:37 WBC 3.53 L RBC 4.11 L Hgb 8.7 L Hct 30.5 L MCV 74.2 L MCH 21.2 L MCHC 28.5 L RDW Std Deviation 49.1 H RDW Coeff of Kelli 18.0 H Plt Count 619 H MPV 9.1 Immature Gran % (Auto) 0.0 Neut % (Auto) 46.7 Lymph % (Auto) 34.0 [place] % (Auto) 14.2 Eos % (Auto) 4.5 Baso % (Auto) 0.6 Neut # (Auto) 1.65 Lymph # (Auto) 1.20 [place] # (Auto) 0.50 Eos # (Auto) 0.16 Baso # (Auto) 0.02 Immature Gran # (Auto) 0.00 Hypochromasia Present Sodium 144 Potassium 3.5 Chloride 111 H Carbon Dioxide 29 Anion Gap 4.0 BUN 3 L Creatinine 0.52 L Est Cr Clr Drug Dosing 162.0 Est GFR ( Amer) 130.9 Est GFR (Non-Af Amer) 113.0 BUN/Creatinine Ratio 6.3 L Glucose 78 Calcium 8.3 L (1) Pancreatitis Acute pancreatitis complication: unspecified Chronicity: acute Pancreatitis type: other Qualified Code(s): K85.80 - Other acute pancreatitis without necrosis or infection
--- NOTE | 2020-03-27 19:12 | Discharge Summary ---
Date of Service March 27, 2020 Admission HPI Per Admitting Provider History obtained from patient and records. Medical history significant for mood disorder, personality disorder, PTSD as per records, opiate abuse as per records, chronic anemia (baseline hemoglobin 8), hidradenitis suppurativa, common variable immunodeficiency as per records, past tobacco abuse. Recent confinement last week for respiratory failure attributed to noncardiogenic pulmonary edema. 2D echo report as follows : No significant valvular pathology. Left ventricle are normal in size. EF 60 to 65%. RV systolic function is normal. Left and right atrial sizes normal. Patient discharged on doxycycline for respiratory tract infection and lisinopril for hypertension during confinement. After a chips dinner last night, patient experience achy left-sided abdominal pain going to the flank with nausea. No emesis. No fever, no chills. No prior episodes. Denies recent EtOH intake. Patient complaining of intractable pain at the ER. Medical History as above Surgical History : Cholecystectomy, gastric bypass, sweat gland removal, tonsillectomy/adenectomy Family History : unknown as patient was adopted. Personal/Social history : Past tobacco abuse, no EtOH intake, disabled Discharge Data Allergies Allergy/AdvReac Type Severity Reaction Status Date / Time poison stephen extract Allergy Intermediate Rash and Verified 03/27/20 08:29 blisters cephalexin AdvReac Severe Nausea,vomiting Verified 03/27/20 08:29 and diarrhea Consultations 03/25/20 00:06 ED Decision to Admit Stat 03/25/20 01:44 Consult Gastroenterology Routine Procedures Performed Operation Date: 03/26/20 09:00 Actual Procedures p Esophagogastroduodenoscopy - Jovanni Brown MD Operation Date: 03/27/20 17:00 Actual Procedures p Colonoscopy Biopsy Cytology - Jovanni Brown MD Ordered Studies 03/24/20 21:10 CT abd pelvis IV con only Stat 03/26/20 US liver Routine Discharge Plan Discharge Items Patient Disposition: Home - Self-Care Reason For Visit: PANCREATITIS Discharge Diagnosis: ACUTE PANCREATITIS IRON DEFICIENCY ANEMIA Activity: Resume your previous activity Lifting: Wait until after follow-up appointment Exercise/Sports: Wait until after follow-up appointment Driving/Machine Use: NO DRIVING UNTIL RE-EVALUATED AND ALLOWED BY PRIMARY CARE PHYSICIAN Non-emergency contact: Primary Care Provider Call non-emergency contact if: you have any medication questions, your symptoms worsen, your pain is not controlled, your pain is worsening, your pain is unusual for you, your pain is concerning for you and you have a fever Follow-up/Referrals: Drew Caicedo MD [Primary Care Provider] - Diet: Heart Healthy, Low Fiber and Low Fat Addtl Attending Provider Instructions: PLEASE REVIEW YOUR NEW MEDICATION LIST AND FOLLOW INSTRUCTIONS CAREFULLY. ALWAYS TAKE PROTONIX AT LEAST 30 MINUTES BEFORE BREAKFAST. DO NOT TAKE MEDICATIONS UNDER THE CLASS OF NSAIDS: IBUPROFEN, ASPIRIN, NAPROXEN, ETC. RETURN TO THE ER IMMEDIATELY IF WITH PERSISTENT ABDOMINAL PAIN. CALL PRIMARY CARE PHYSICIAN IF WITH WEAKNESS, DIZZINESS, SHORTNESS OF BREATH, BLOOD IN THE STOOLS, BLACK STOOLS. FOLLOW UP WITH PRIMARY CARE PHYSICIAN IN 1 WEEK. THE CLINIC WILL BE CALLING YOU SOON FOR THE APPOINTMENT. Pending Studies at Discharge: No Stand-Alone Forms: My [facility], Smoking Cessation Medications and DC Order Prescriptions: New pantoprazole 40 mg Tablet,Delayed Release (Dr/Ec) 40 mg PO QAM Qty: 30 RF: 0 hydrocortisone [Anusol-HC] 2.5 % cream with perineal applicator 1 applic ND BID Qty: 30 RF: 0 Continued cyanocobalamin (vitamin B-12) 1,000 mcg/mL solution 1,000 mcg IM MONTHLY RF: 0 acetaminophen [Tylenol Extra Strength] 500 mg Tablet 1,000 mg PO Q6H PRN (Reason: Pain) RF: 0 diclofenac sodium 1 % gel 4 g TOPICAL QID PRN (Reason: Pain) RF: 0 lidocaine 5 % adhesive patch,medicated 1 patch topical DAILY PRN (Reason: Pain) RF: 0 baclofen 10 mg tablet 10 mg PO BID RF: 0 diphenhydramine HCl [Benadryl] 25 mg Capsule 50 mg PO HS PRN (Reason: Sleep) RF: 0 duloxetine 60 mg capsule,delayed release(DR/EC) 60 mg PO DAILY RF: 0 gabapentin 600 mg tablet 600 mg PO HS PRN (Reason: Sleep) Qty: 4 RF: 0 tramadol 50 mg tablet 50 mg PO Q6H PRN (Reason: pain) Qty: 4 RF: 0 Discontinued ibuprofen [Advil] 200 mg Tablet 400 mg PO Q6H PRN (Reason: Pain) RF: 0 doxycycline hyclate 100 mg Capsule 100 mg PO BID Qty: 6 RF: 0 lisinopril 10 mg tablet 10 mg PO DAILY Qty: 30 RF: 1 Discharge Orders: Discharge Order (Routine); Ordered 03/27/20 Ordered By: Alo Pang Admission Data Admit Date/Time: 03/25/20 00:52 Attending Provider: Alo Pang Admit Provider: Davidson West Primary Care Provider: Drew Caicedo Other Providers: Davidson West ; Dannielle Pichardo ; Denita Manzano ; Ko Abraham ; Elva Garcia ; Marty Govea ; Lizabeth Kebede Irphan E ; Germaine Taylor ; Ray Stanton ; Huang Crow ; Caridad Donovan ; Chacha Vanessa ; Raegan Avina ; Montserrat Villagomez ; Anastasiya Goetz Other Interventions: Discharge Summary Assessment (RN) Last Done: 03/27/20 09:32
--- NOTE | 2020-03-29 15:32 | Discharge Summary ---
Date of Service March 29, 2020 Admission HPI Per Admitting Provider History obtained from patient and records. Medical history significant for mood disorder, personality disorder, PTSD as per records, opiate abuse as per records, chronic anemia (baseline hemoglobin 8), hidradenitis suppurativa, common variable immunodeficiency as per records, past tobacco abuse. Recent confinement last week for respiratory failure attributed to noncardiogenic pulmonary edema. 2D echo report as follows : No significant valvular pathology. Left ventricle are normal in size. EF 60 to 65%. RV systolic function is normal. Left and right atrial sizes normal. Patient discharged on doxycycline for respiratory tract infection and lisinopril for hypertension during confinement. After a chips dinner last night, patient experience achy left-sided abdominal pain going to the flank with nausea. No emesis. No fever, no chills. No prior episodes. Denies recent EtOH intake. Patient complaining of intractable pain at the ER. Medical History as above Surgical History : Cholecystectomy, gastric bypass, sweat gland removal, tonsillectomy/adenectomy Family History : unknown as patient was adopted. Personal/Social history : Past tobacco abuse, no EtOH intake, disabled Admission Exam Per Admitting Provider GENERAL: Comfortable, obese, looks older than stated age, no respiratory distress SKIN: Pallor , warm HEENT: Pale palpebral conjunctivae, no ptosis, dry buccal mucosa NECK : Supple, no tenderness CHEST : CTA, no tenderness HEART : RRR, no obvious murmurs ABDOMEN: Some distention, left side abdominal tenderness EXTREMITIES : No LE swelling/tenderness, no other conspicuous deformities noted NEUROLOGIC : Coherent, no facial asymmetry, no other gross focality Principal Diagnosis ACUTE PANCREATITIS, IRON DEFICIENCY ANEMIA Discharge Exam General- oriented x 3, not in distress, speaks in sentences with no effort or accessory muscle use Eyes- anicteric Neck- no JVD Lungs- clear BS BL Heart- normal rate, regular rhythm; no murmurs Abdomen- normal bowel sounds, nondistended, soft, nontender Extremities- no pretibial edema, no calf tenderness Neuro- alert, oriented x 3; no gross focal neurologic deficits Skin- warm & dry Discharge Data Allergies Allergy/AdvReac Type Severity Reaction Status Date / Time poison stephen extract Allergy Intermediate Rash and Verified 03/27/20 08:29 blisters cephalexin AdvReac Severe Nausea,vomiting Verified 03/27/20 08:29 and diarrhea Consultations 03/25/20 00:06 ED Decision to Admit Stat 03/25/20 01:44 Consult Gastroenterology Routine Procedures Performed Operation Date: 03/26/20 09:00 Actual Procedures p Esophagogastroduodenoscopy - Jovanni Brown MD Operation Date: 03/27/20 17:00 Actual Procedures p Colonoscopy Biopsy Cytology - Jovanni Brown MD Ordered Studies 03/24/20 21:10 CT abd pelvis IV con only Stat Lung bases: The heart is normal in size and without pericardial effusion. There is trace left pleural effusion. The lung bases are otherwise clear noting bibasilar scarring/atelectasis. Liver: The contrast-enhanced liver is enlarged, measuring 20.6 cm in length. The liver is otherwise normal in contour and attenuation. There is no intrahepatic biliary ductal dilatation. The hepatic veins and portal veins are patent. Gallbladder: Surgically absent noting clips in the gallbladder fossa. 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 There is trace residual subcapsular fluid seen laterally on image #[id number]. This measures up to 1 cm in thickness. No acute perfusion anomalies are identified. Pancreas: The pancreas is normal in size and attenuation. The parenchyma enhances homogeneously. Question mild stranding around the pancreatic head and body. No peripancreatic fluid collection is identified. The splenic vein appears patent. Adrenal glands: Unremarkable. Kidneys: The contrast enhanced kidneys are normal in size and without hydronephrosis. The kidneys enhance symmetrically. Abdominal vasculature: The abdominal aorta is normal in course and caliber. Vascular coils are again seen along the course of the splenic artery. Stomach and bowel: There is a small hiatal hernia. Postoperative changes consistent with a history of Andry-en-Y gastric bypass surgery. No bowel obstruction is identified. The appendix is well-visualized and normal. Peritoneum: There is no intraperitoneal free air or abdominal ascites. There are numerous small fat-containing ventral hernias. Lymphadenopathy: None. Pelvic viscera: The bladder is normal as visualized. The uterus is surgically absent. No adnexal lesion is seen. Skeletal structures: No lytic or blastic lesions are seen. IMPRESSION: 1. Question mild stranding around the pancreatic head and body. Correlate clinically and with serum amylase/lipase levels for evidence of mild acute pancreatitis. 2. Trace left pleural effusion. 3. 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 There is trace residual subcapsular fluid which has significantly decreased in size from 07/24/2018. 4. Hepatomegaly. 5. Postoperative change is consistent with a history of Andry-en-Y gastric bypass surgery. There is no bowel obstruction. 6. Additional findings as above. 03/26/20 US liver Routine FINDINGS: There is mild coarsening of hepatic echotexture. Liver echogenicity is mildly increased. No hepatic lesions right identified. The gallbladder is surgically absent. The common bile duct measures 7 mm in caliber. No common bile duct calculi are identified although the distal common bile duct is obscured. The pancreas is largely obscured on this examination. There is no right hydronephrosis. IMPRESSION: 1. Mild biliary ductal dilatation. This is likely related to previous cholecystectomy. No common bile duct calculi identified although the common bile duct obscured. 2. Fatty infiltration of the liver. 3. Largely obscured pancreas. Hospital Course (1) Pancreatitis: AcutePancreatitis: Unclear etiology --Abd US: No choledocholithiasis 1. Mild biliary ductal dilatation. This is likely related to previous cholecystectomy. No common bile duct calculi identified although the common bile duct obscured. 2. Fatty infiltration of the liver. 3. Largely obscured pancreas. -- Patient denies alcohol intake -- placed on bowel rest, vigorous IV fluids GI consulted -- Abdominal pain resolved -- advanced low fat, soft diet, NO alcohol patient verbalized understanding and agreement Anemia, iron deficiency ---Iron level 9 -- Hg 8-9 --Status post EGD: Impression: - Normal esophagus. - Gastritis. Biopsied. - Normal examined duodenum. Status post Colonoscopy: (+) erythema of ascending Colon, diverticulosis, hemorrhoids Impression: - Preparation of the colon was fair. - Erythematous mucosa in the ascending colon. Biopsied. - Diverticulosis in the sigmoid colon and in the descending colon. - External hemorrhoids. -- Biopsies from EGD and Colonoscopy: pending -- GI recommending: Protonix daily Anusol cream x 2 weeks -- given IV Iron ff up with PCP, [facility] in 1 week Hepatomegaly, Fatty Live -- found on Liver US and CT Abd -- ff up as outpatient Hypertension --Blood pressure stable -- Discontinue Lisinopril as BP stable, and given association with pancreatitis although somewhat rare. Hypokalemia --Resolved mood disorder, at baseline opiate abuse as per records d/c home ff up with PCP in 1 week, Clinic to call patient ff up with [facility] in 1-2 weeks Total Time Total Time Spent Total Time Spent (In Minutes): > 30 minutes Discharge Plan Discharge Items Patient Disposition: Home - Self-Care Reason For Visit: PANCREATITIS Discharge Diagnosis: ACUTE PANCREATITIS IRON DEFICIENCY ANEMIA Activity: Resume your previous activity Lifting: Wait until after follow-up appointment Exercise/Sports: Wait until after follow-up appointment Driving/Machine Use: NO DRIVING UNTIL RE-EVALUATED AND ALLOWED BY PRIMARY CARE PHYSICIAN Non-emergency contact: Primary Care Provider Call non-emergency contact if: you have any medication questions, your symptoms worsen, your pain is not controlled, your pain is worsening, your pain is unusual for you, your pain is concerning for you and you have a fever Follow-up/Referrals: Drew Caicedo MD [Primary Care Provider] - Diet: Heart Healthy, Low Fiber and Low Fat Addtl Attending Provider Instructions: PLEASE REVIEW YOUR NEW MEDICATION LIST AND FOLLOW INSTRUCTIONS CAREFULLY. ALWAYS TAKE PROTONIX AT LEAST 30 MINUTES BEFORE BREAKFAST. DO NOT TAKE MEDICATIONS UNDER THE CLASS OF NSAIDS: IBUPROFEN, ASPIRIN, NAPROXEN, ETC. RETURN TO THE ER IMMEDIATELY IF WITH PERSISTENT ABDOMINAL PAIN. CALL PRIMARY CARE PHYSICIAN IF WITH WEAKNESS, DIZZINESS, SHORTNESS OF BREATH, BLOOD IN THE STOOLS, BLACK STOOLS. FOLLOW UP WITH PRIMARY CARE PHYSICIAN IN 1 WEEK. THE CLINIC WILL BE CALLING YOU SOON FOR THE APPOINTMENT. Pending Studies at Discharge: No Stand-Alone Forms: [employer], Smoking Cessation Medications and DC Order Prescriptions: New pantoprazole 40 mg Tablet,Delayed Release (Dr/Ec) 40 mg PO QAM Qty: 30 RF: 0 hydrocortisone [Anusol-HC] 2.5 % cream with perineal applicator 1 applic GA BID Qty: 30 RF: 0 Continued cyanocobalamin (vitamin B-12) 1,000 mcg/mL solution 1,000 mcg IM MONTHLY RF: 0 acetaminophen [Tylenol Extra Strength] 500 mg Tablet 1,000 mg PO Q6H PRN (Reason: Pain) RF: 0 diclofenac sodium 1 % gel 4 g TOPICAL QID PRN (Reason: Pain) RF: 0 lidocaine 5 % adhesive patch,medicated 1 patch topical DAILY PRN (Reason: Pain) RF: 0 baclofen 10 mg tablet 10 mg PO BID RF: 0 diphenhydramine HCl [Benadryl] 25 mg Capsule 50 mg PO HS PRN (Reason: Sleep) RF: 0 duloxetine 60 mg capsule,delayed release(DR/EC) 60 mg PO DAILY RF: 0 gabapentin 600 mg tablet 600 mg PO HS PRN (Reason: Sleep) Qty: 4 RF: 0 tramadol 50 mg tablet 50 mg PO Q6H PRN (Reason: pain) Qty: 4 RF: 0 Discontinued ibuprofen [Advil] 200 mg Tablet 400 mg PO Q6H PRN (Reason: Pain) RF: 0 doxycycline hyclate 100 mg Capsule 100 mg PO BID Qty: 6 RF: 0 lisinopril 10 mg tablet 10 mg PO DAILY Qty: 30 RF: 1 Discharge Orders: Discharge Order (Routine); Ordered 03/27/20 Ordered By: Alo Dennis/Other Patient Handouts: Understanding Pancreatitis Admission Data Admit Date/Time: 03/25/20 00:52 Attending Provider: Alo Pang Admit Provider: Davidson West Primary Care Provider: Drew Caicedo Other Providers: Davidson West ; Dannielle Pichardo ; Denita Manzano ; Ko Abraham ; Elva Garcia ; Marty Govea ; Lizabeth Kebede ; Moody Pearson ; Germaine Taylor ; Ray Stanton ; Huang Crow ; Caridad Donovan ; Chacha Vanessa ; Raegan Avina ; Montserrat Villagomez ; Anastasiya Goetz Other Interventions: Discharge Summary Assessment (RN) Last Done: 03/27/20 19:37
== END 2020-03-27 20:13 | disposition home or self-care (01) | DRG 439 ==
LOC: ED 20:24 → 3W 03-25 00:52